=== PATIENT | male | born 1975 | race Two or more races ===

== ENCOUNTER 2024-12-06 15:08 | Inpatient (IN) | payer MEDICAID, OTHER ==
[2024-12-06] VITALS (7 sets, daily range): BP systolic 83–107; BP diastolic 45–65; PULSE 82–115; RESP 21–30; TEMP 94.8–96.4; O2SAT 94–99
[~2024-12-06] VITALS: Ht 190.5 cm; Wt 74.4 kg
[2024-12-06] MEDS ORDERED: DEXTROSE (50%) 50ML SYRG IV PRN ×2 (15:30→19:45)
--- NOTE | 2024-12-06 15:34 | ED.PDOC ---
Altered Mental Status Chief Complaint: ALOC Comments This is a patient who was found altered by his family. Patient's ex- called 911 after finding him altered at home. He was supposed to take care of the kids today by he did not show up. He was last seen normal two days ago. Patient's blood sugar was read high by EMT and also he was hypotensive. He was given 1 L by EMT. Patient is able to not NSAIDs as he is thirsty. EMT reports there are bags and bags of marijuana in the house. Time Seen by MD: 15:11 Allergies: Coded Allergies: UNOBTAINABLE (Unverified , 12/06/24) Information Source: Emergency Med Personnel Mode of Arrival: EMS Severity: Unable to Care for Self Timing: Days Quality: Decreased Alertness History of: Diabetes Past Medical History PAST MEDICAL HISTORY: DM Surgical History (Other): unknown Unable to Obtain due to: Altered Mental Status Physical Exam Exam Comments Patient is awake alert, is able to nod, is able to say he is thirsty, however he is not answering any other questions his mucous membrane is dry. General Appearance: Cachectic, No Apparent Distress, Normal HEENT: Other (Dry mucous membrane) Neck: Full Range of Motion, Non-Tender, Normal, Normal Inspection Respiratory: Chest Non-Tender, Lungs Clear, No Accessory Muscle Use, No Respiratory Distress, Normal Breath Sounds Cardiovascular: No Edema, No JVD, No Murmur, No Gallop, Normal Peripheral Pulses, Regular Rate/Rhythm Breast Exam: Deferred Gastrointestinal: No Organomegaly, Non Tender, No Pulsatile Mass, Normal Bowel Sounds, Soft Genitalia: Deferred Pelvic: Deferred Rectal: Deferred Extremities: No calf tenderness, Normal capillary refill, Normal inspection, Normal range of motion, Non-tender, No pedal edema Musculoskeletal : Apperance: Normal Neurologic: Alert, No Motor Deficits, Normal Affect, Normal Mood, No Sensory Deficits Cerebellar Function: Normal Reflexes: Normal Skin: Dry, Normal Color, Warm Lymphatic: No Adenopathy Was a procedure done? 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: Attending Physician Indication: Hypotension, CVP monitoring, Volume resuscitation, Suspected infection Room prepared for procedure: Yes Billing Clerk performed hand hygien: Yes Maximal sterile barrier precau: Mask/Eye shield, Sterile gown, Cap, Sterlie gloves, Large sterlie drape Skin Preparation: Chlorhexidine gluconate Skin preparation completely dr: Yes Insertion site: Right, Internal jugular Central line catheter type: Pbi-[id number]-diy dialysis Number of lumens: 3 Post Assessment: Chest X-Ray, Proper placement Informed consent obtained: Yes Risks/benefits/alt described: Yes Differential Diagnosis (ALOC) Differential Diagnosis: Dehydration, Hypoglycemia, DKA, Encephalopathy, Meningitis, Sepsis, Hypoxemia, Seizure, Closed Head Injury, CVA, Mass Lesion, SAH, Drug Overdose, ETOH Intoxication, Heart Failure, Renal Failure X-Ray, Labs, Meds, VS Vital Signs Date Time Temp Pulse Resp B/P (MAP) Pulse Ox O2 Delivery O2 Flow Rate FiO2 12/06/24 19:15 94.8 109 22 107/62 (77) 98 94.8 12/06/24 19:00 94.5 108 23 119/72 (88) 98 94.5 12/06/24 18:45 93.9 107 24 112/74 (87) 99 93.9 12/06/24 18:30 93.6 104 22 103/68 (80) 98 93.6 12/06/24 18:28 105 12/06/24 18:15 92.8 101 22 106/74 (85) 98 92.8 12/06/24 18:00 92.3 100 21 116/62 (80) 97 92.3 12/06/24 17:45 91.9 98 20 107/67 (80) 97 91.9 12/06/24 17:30 91.4 94 24 105/62 (76) 98 91.4 12/06/24 17:15 91.0 100 26 101/56 (71) 97 91.0 12/06/24 17:00 90.5 91 28 90/48 (62) 97 90.5 12/06/24 16:45 90.1 88 21 84/51 (62) 97 90.1 12/06/24 16:35 88 12/06/24 16:30 89.6 87 19 84/51 (62) 98 89.6 12/06/24 16:17 89.4 89.4 12/06/24 16:15 91 22 76/51 (59) 97 12/06/24 16:00 85 24 86/49 (61) 98 12/06/24 15:45 83 22 76/42 (53) 98 12/06/24 15:45 82 12/06/24 15:30 81 21 76/43 (54) 97 12/06/24 15:15 94.6 82 21 68/41 (50) 94 94.6 12/06/24 15:15 94.6 85 24 74/52 99 94.6 12/06/24 15:15 82 21 94 Room Air* 0 21 Lab Test 12/06/24 18:36 12/06/24 17:59 12/06/24 17:45 12/06/24 15:54 Range/Units Blood Gas Specimen Type Arterial Blood Gas Sample Site Left radial Blood Gas Patient Temperature 37.0 Arterial Blood Date Drawn [id number] Arterial Blood pH 7.277 L 7.350-7.450 Arterial Blood Partial Pressure CO2 25.1 L 35.0-48.0 mmHg Arterial Blood Partial Pressure O2 99.7 83.0-108.0 mmHg Arterial Blood HCO3 11.5 L 21.0-28.0 mmol/L Arterial Blood Oxygen Saturation 96.7 94.0-98.0 % Arterial Blood Base Excess -13.5 L -2.0-3.0 mmol/L Arterial Blood Oxyhemoglobin 95.6 94.0-98.0 % Arterial Blood Carboxyhemoglobin 0.4 L 0.5-1.5 % Arterial Blood Methemoglobin 0.7 0.0-1.5 % Frankie Test Yes Blood Gas Total Hemoglobin 14.10 13.5-17.5 g/dL Blood Gas Modality Room air FiO2 % 21.0 POC Glucose > 600 *H 70-106 mg/dl Lactic Acid Level 1.8 0.4-2.0 mmol/L Urine Color Light-yellow Yellow Urine Clarity Turbid H Clear Urine pH 5.5 5.0-9.0 Urine Specific [place] 1.019 1.001-1.035 Urine Protein Trace H Negative Urine Ketones 3+ H Negative Urine Blood Trace H Negative /uL Urine Nitrite Negative Negative Urine Bilirubin Negative Negative Urine Urobilinogen Normal Negative mg/dL Urine Leukocyte Esterase Negative Negative /uL Urine RBC <1 0 - 3 /hpf Urine Microscopic WBC 1 0-3 /HPF Urine Squamous Epithelial Cells Few <5 /hpf Urine Bacteria None seen None Seen /hpf Urine Hyaline Casts Many 0 - 2 /lpf Urine Mucus Few None Seen Urine Glucose 4+ H Normal mg/dL Urine Opiates Screen Neg NEGATIVE Urine Fentanyl Screen Neg NEGATIVE Urine Barbiturates Screen Neg NEGATIVE Urine Phencyclidine Screen Neg NEGATIVE Urine Amphetamines Screen Neg NEGATIVE Urine Benzodiazepines Screen Neg NEGATIVE Urine Cocaine Screen Neg NEGATIVE Urine Cannabinoids Screen Neg NEGATIVE Test 12/06/24 15:50 12/06/24 15:28 12/06/24 15:19 12/06/24 15:18 Range/Units Blood Gas Specimen Type Arterial Blood Gas Sample Site Right brachial Blood Gas Patient Temperature 37.0 Arterial Blood Date Drawn [id number] Arterial Blood pH 7.093 *L 7.350-7.450 Arterial Blood Partial Pressure CO2 23.2 L 35.0-48.0 mmHg Arterial Blood Partial Pressure O2 122.7 H 83.0-108.0 mmHg Arterial Blood HCO3 6.9 L 21.0-28.0 mmol/L Arterial Blood Oxygen Saturation 97.0 94.0-98.0 % Arterial Blood Base Excess -21.2 L -2.0-3.0 mmol/L Arterial Blood Oxyhemoglobin 95.9 94.0-98.0 % Arterial Blood Carboxyhemoglobin 0.4 L 0.5-1.5 % Arterial Blood Methemoglobin 0.7 0.0-1.5 % Frankie Test N/a Blood Gas Total Hemoglobin 13.90 13.5-17.5 g/dL Blood Gas Modality Room air FiO2 % 21.0 Blood Gas Critical Value Read Back Yes Blood Gas Notified Whom Dr. ayala Blood Gas Notified Time [id number] Blood Gas Notified By Tiago william, jg White Blood Count 24.0 H 4.4-10.8 10^3/uL Red Blood Count 4.63 4.5-5.90 10^6/uL Hemoglobin 13.8 13.5-17.5 g/dL Hematocrit 43.6 41.0-53.0 % Mean Corpuscular Volume 94.2 80.0-100.0 fL Mean Corpuscular Hemoglobin 29.9 28.0-32.0 pg Mean Corpuscular Hemoglobin Concent 31.7 L 32.0-36.0 g/dL Red Cell Distribution Width 13.4 11.8-14.3 % Platelet Count 448 140-450 10^3/uL Mean Platelet Volume 8.4 6.9-10.8 fL Neutrophils (%) (Auto) 37.0-80.0 % Lymphocytes (%) (Auto) 10.0-50.0 % Monocytes (%) (Auto) 0.0-12.0 % Basophils (%) (Auto) 0.0-2.0 % Neutrophils # (Auto) 1.6-8.6 10 ^3/uL Lymphocytes # (Auto) 0.4-5.4 10 ^3/uL Monocytes # (Auto) 0-1.3 10 ^3/uL Differential Total Cells Counted 100.0 100 Neutrophils % (Manual) 84 H 37.0-80.0 Band Neutrophils % (Manual) 6 Lymphocytes % (Manual) 2 L 10.0-50.0 Monocytes % (Manual) 8 0-12 Eosinophils % (Manual) 0 0-7 Basophils % (Manual) 0 0.0-2.0 Metamyelocytes % (manual) 0 Myelocytes % (Manual) 0 Promyelocytes % (Manual) 0 Blast Cells % (Manual) 0 Reactive Lymphocytes 0 Platelet Estimate Adequate Red Blood Cell Morphology Normal Sodium Level 139 136-145 mmol/L Potassium Level 3.1 L 3.5-5.1 mmol/L Chloride Level 94 L 98-107 mmol/L Carbon Dioxide Level < 10 *L 20-31 mmol/L Anion Gap 35.93372 H 5-15 Blood Urea Nitrogen 102 *H 9-23 mg/dL Creatinine 5.91 H 0.700-1.30 mg/dL Glomerular Filtration Rate Calc 11 >90 mL/min BUN/Creatinine Ratio 17.3 10.0-20.0 Serum Glucose 1225 *H 74-106 mg/dL Serum Osmolality 456 H 278-298 mOsm/kg Lactic Acid Level 2.4 *H 0.4-2.0 mmol/L Calcium Level 8.6 L 8.7-10.4 mg/dL Phosphorus Level 9.2 H 2.4-5.1 mg/dL Magnesium Level 3.0 H 1.6-2.6 mg/dL Total Bilirubin 0.4 0.2-1.0 mg/dL Aspartate Amino Transferase (AST) 9 L 13-40 U/L Alanine Aminotransferase (ALT) < 9 7-40 U/L Alkaline Phosphatase 112 46-116 U/L Total Protein 7.1 5.7-8.2 g/dL Albumin 3.9 3.2-4.8 g/dL Beta-Hydroxybutyric Acid > 4.500 H < 0.4 mmol/L Plasma/Serum Blood Alcohol 7.2 <10 mg/dL POC Glucose > 600 *H > 600 *H 70-106 mg/dl Current Medications Medications (Trade) Dose Ordered Sig/[place] Route Start Time Stop Time Status Last Admin Lactated Ringer's 2,550 ml @ 2,550 mls/hr ONCE ONCE IV 12/06/24 15:30 12/06/24 16:29 DC 12/06/24 15:45 Insulin Human (Reg)/Sodium Chloride 100 ml @ 0.5 mls/hr Q24H IV 12/06/24 15:30 12/06/24 16:34 Diagnostic Test (Pha) (Accu-Chek Comfort Curve T) 1 strip Q90MIN 12/06/24 16:30 12/06/24 18:05 Insulin Glargine (Lantus) 15 units ONCE ONCE SC 12/06/24 15:30 12/06/24 15:33 DC 12/06/24 16:29 Insulin Human Regular (InsuLIN R) 6 units ONCE ONCE IV 12/06/24 15:45 12/06/24 15:46 DC 12/06/24 16:27 Cefepime HCl 50 ml @ 50 mls/hr ONCE ONCE IV 12/06/24 16:00 12/06/24 16:59 DC 12/06/24 15:48 Time of 1ST Reevaluation: 19:27 Reevaluation 1ST: Improved Patient Education/Counseling: Diagnosis, Treatment, Prognosis, Need For Follow Up Family Education/Counseling: Diagnosis, Treatment, Prognosis, Need For Follow Up Comments This is a patient who was found to be altered. He has new onset diabetes and he is in DKA. He may also be septic. Chest x-ray shows patchy infiltrates after fluid. However initial chest x-ray was suspicious for patchy infiltrates this was when patient was dehydrated. So in all likelihood, patient does have pneumonia. Sepsis order was initiated. Patient is also in acute renal failure due to severe dehydration secondary to the DKA. Patient has responded to treatment and he is doing better he is more alert his acidosis has improved his blood sugar has dropped patient will be admitted to ICU for further evaluation and treatment for the above conditions SEPSIS Sepsis Screen Date sepsis recognized/suspect: Dec 06, 2024 Time Sepsis recognized/suspect: 1510 Recent Procedure: No On Antibiotic Therapy: No Respiratory Rate >20: No Heart Rate >90: No Temp<36 C (96.8 F) or >38.3 C: No SBP <90 or MAP <65 mmHG: No New Acute Mental Status Change: No Is the patient on CPAP, BIPAP,: No Physician Orders Chest Portable (12/06/24 15:25) Accucheck (12/06/24 15:25) Blood Culture (12/06/24 15:25) Notify Md If Map <65 Or Bp<90 (12/06/24 15:25) If Map<65 Start Vasopressor (12/06/24 15:25) Sepsis Reassesment After Fluid (12/06/24 16:25) Insulin Drip Protocol (12/06/24 ) Insulin Drip 100 Unit/100ml (Myxredlin 1 (12/06/24 15:30) Dextrose 50% Syringe (12/06/24 15:30) Glucose Blood (Accu-Chek Comfort Curve T (12/06/24 16:30) Abg W/ Co-Ox (12/06/24 15:25) Neurological Assessment (12/06/24 15:25) Vs/Hemodynamics .PER UNIT PROTOCOL (12/06/24 15:25) Insulin Lantus (Glargine) (Lantus) (12/07/24 10:00) Insert Lala Catheter QSHIFT (12/06/24 15:36) Head Without Contrast (12/06/24 15:52) Continuous Ekg Monitoring 08,12,16,20,00,04 (12/06/24 16:31) Cefepime 1gm/50ml (Maxipime 1gm/50ml) (12/07/24 10:00) Chest Portable (12/06/24 17:26) Abg W/ Co-Ox (12/06/24 18:25) Potassium Chl Kyle Kcl (12/06/24 19:30) Vital Signs Date Time Temp Pulse Resp B/P (MAP) Pulse Ox O2 Delivery O2 Flow Rate FiO2 12/06/24 19:15 94.8 109 22 107/62 (77) 98 94.8 12/06/24 19:00 94.5 108 23 119/72 (88) 98 94.5 12/06/24 18:45 93.9 107 24 112/74 (87) 99 93.9 12/06/24 18:30 93.6 104 22 103/68 (80) 98 93.6 12/06/24 18:28 105 12/06/24 18:15 92.8 101 22 106/74 (85) 98 92.8 12/06/24 18:00 92.3 100 21 116/62 (80) 97 92.3 12/06/24 17:45 91.9 98 20 107/67 (80) 97 91.9 12/06/24 17:30 91.4 94 24 105/62 (76) 98 91.4 12/06/24 17:15 91.0 100 26 101/56 (71) 97 91.0 12/06/24 17:00 90.5 91 28 90/48 (62) 97 90.5 12/06/24 16:45 90.1 88 21 84/51 (62) 97 90.1 12/06/24 16:35 88 12/06/24 16:30 89.6 87 19 84/51 (62) 98 89.6 12/06/24 16:17 89.4 89.4 12/06/24 16:15 91 22 76/51 (59) 97 12/06/24 16:00 85 24 86/49 (61) 98 12/06/24 15:45 83 22 76/42 (53) 98 12/06/24 15:45 82 12/06/24 15:30 81 21 76/43 (54) 97 12/06/24 15:15 94.6 82 21 68/41 (50) 94 94.6 12/06/24 15:15 94.6 85 24 74/52 99 94.6 12/06/24 15:15 82 21 94 Room Air* 0 21 Laboratory Tests Test 12/06/24 15:28 12/06/24 17:45 Lactic Acid Level 2.4 mmol/L (0.4-2.0) *H 1.8 mmol/L (0.4-2.0) White Blood Count 24.0 10^3/uL (4.4-10.8) H Medications Medications Dose Ordered Sig/[place] Route Start Time Stop Time Status Last Admin Dose Admin Cefepime HCl 50 ml @ 50 mls/hr ONCE ONCE IV 12/06/24 16:00 12/06/24 16:59 DC 12/06/24 15:48 Diagnostic Test (Pha) 1 strip Q90MIN 12/06/24 16:30 12/06/24 18:05 Insulin Glargine 15 units ONCE ONCE SC 12/06/24 15:30 12/06/24 15:33 DC 12/06/24 16:29 Insulin Human (Reg)/Sodium Chloride 100 ml @ 0.5 mls/hr Q24H IV 12/06/24 15:30 12/06/24 16:34 Insulin Human Regular 6 units ONCE ONCE IV 12/06/24 15:45 12/06/24 15:46 DC 12/06/24 16:27 Lactated Ringer's 2,550 ml @ 2,550 mls/hr ONCE ONCE IV 12/06/24 15:30 12/06/24 16:29 DC 12/06/24 15:45 Reassessment Post Fluid SEPSIS FOCUS EXAM(REASSESSMENT Patient is improving, he is more alert and cooperative. His blood pressure has improved. His acidosis has improved. And his blood sugar has decreased by half. Date of Reassessment: Dec 06, 2024 Time of Reassessment: 19:30 Pulse Location: Radial Pulse Strength: Normal Capillary Refill Exam: < 3 seconds Skin Temperature: Warm Skin Tugor: WNL Skin Color: WNL Fingernail Color: WNL Departure 1 Departure Time of Disposition: 19:25 Impression: Primary Impression: DKA (diabetic ketoacidosis) Qualified Codes: E13.10 - Other specified diabetes mellitus with ketoacidosis without coma Additional Impressions: Acute renal failure Qualified Codes: N17.9 - Acute kidney failure, unspecified Sepsis Qualified Codes: A41.9 - Sepsis, unspecified organism Pneumonia Qualified Codes: J18.9 - Pneumonia, unspecified organism Hypokalemia Disposition: ADMITTED INPATIENT Admit to: ICU Condition: Critical Discharged With: Relative Critical Care Note Critical Care Time?: Yes (90 min-critical care time only) Critical care comment: due to concerns for patient's condition deteriorating, the care required my highest level of attention and readiness to intervene. i assessed the patient's condition, ordered the proper tests and treatments, reassessed for response and reviewed the results. i communicated with medical personnel and formulated a plan of care. total critical care time does not include any procedures Stability Stability form required: No I personally scribed for MARGE AYALA MD ([email or web address]) on 12/06/24 at 17:15. Elec tronically submitted by Dallas Noriega ([email or web address]). MARGE AYALA MD Dec 06, 2024 15:34
[2024-12-06] MEDS: LACTATED RINGER'S 2,550 ML IV ONE (15:45)
[2024-12-06] MEDS: ACCU-CHEK COMFORT CURVE STRIP VI SCH ×2 (15:45→21:07)
[2024-12-06] MEDS: CEFEPIME 1GM/50ML 50 ML IV ONE (15:48)
[2024-12-06 15:54] LABS: Base Excess -21.2 mmol/L (-2.0-3.0)
[2024-12-06 16:01] LABS: Hematocrit 43.6 % (41.0-53.0); Hemoglobin 13.8 g/dL (13.5-17.5); Mean Corpuscular Hemoglobin 29.9 pg (28.0-32.0); Mean Corpuscular Volume 94.2 fL (80.0-100.0)
--- NOTE | 2024-12-06 16:07 | DVH ---
EXAM: XY CHEST PORTABLE HISTORY: sepsis COMPARISON: None TECHNIQUE: Portable upright AP view of the chest was performed. FINDINGS: There is question of mild patchy infiltrate in the right mid lung versus artifactual appearance. No pneumothorax or pulmonary edema. The heart is not enlarged. There is mild thoracic degenerative disc disease. IMPRESSION: Question of mild patchy infiltrate in the right mid lung versus artifactual appearance. The lungs ar e otherwise clear.
[2024-12-06 16:09] LABS: Albumin 3.9 g/dL (3.2-4.8); Alkaline Phosphatase 112 U/L (46-116); Anion Gap 35.00001 (5-15); BUN/Creatinine Ratio 17.3 (10.0-20.0); Sodium 139 mmol/L (136-145); Total Protein 7.1 g/dL (5.7-8.2)
[2024-12-06 16:10] LABS: Bilirubin, Total 0.4 mg/dL (0.2-1.0)
[2024-12-06 16:11] LABS: Lactic Acid w/Reflex 2.4 mmol/L (0.4-2.0)
[2024-12-06 16:18] LABS: Alanine Aminotransferase < 9 U/L (7-40); Calcium 8.6 mg/dL (8.7-10.4); Chloride 94 mmol/L (98-107); Potassium 3.1 mmol/L (3.5-5.1)
[2024-12-06 16:19] LABS: Magnesium 3.0 mg/dL (1.6-2.6)
[2024-12-06 16:21] LABS: Carbon Dioxide < 10 mmol/L (20-31)
[2024-12-06 16:22] LABS: Blood Urea Nitrogen 102 mg/dL (9-23); Glucose 1225 mg/dL (74-106)
[2024-12-06] MEDS: InsuLIN REG 1unit/0.01ml Soln (100units/ml) IV ONE (16:27)
[2024-12-06] MEDS: INSULIN LANTUS (GLARGINE) 1 /0.01ml (100units/ml) SC ONE (16:29)
--- NOTE | 2024-12-06 16:31 | DVH ---
EXAM: CT HEAD WITHOUT CONTRAST INDICATION: altered TECHNIQUE: CT of the head without intravenous contrast. Radiation Dose Information: CT Dose: CTDI volume is 58.35 mGy. Dose-length product is 1266.46 mGy*cm The dose indicators for CT are the volume Computed Tomography (CT) Dose Index (CTDIvol) and the Dose Length Product (DLP), and are measured in units of mGy and mGy-cm, respectively. These indicators are not patient dose, but values generated from the CT scanner acquisition factors. The report includes radiation exposure data for exposures received during this examination. COMPARISON: None FINDINGS: There is no evidence of acute intracranial hemorrhage, extra-axial collection, mass effect, midline s hift, herniation or hydrocephalus. The ventricles, sulci and cisterns are age appropriate. The donnelly-white differentiation is intact. The visualized paranasal sinuses and mastoid air cells are clear. The surrounding soft tissues and osseous structures are unremarkable. IMPRESSION: No acute intracranial abnormality.
[2024-12-06 16:32] LABS: Urine Protein, UAD TRACE (Negative)
[2024-12-06 16:33] LABS: RBC Morphology Normal; Total Cells Counted 100.0 (100)
[2024-12-06] MEDS: INSULIN DRIP 100 UNIT/100ML 100 ML IV SCH ×2 (16:34→21:09)
[2024-12-06 16:50] LABS: Cannabinoid Screen, Urine Neg (NEGATIVE)
[2024-12-06 16:51] LABS: Amphetamine Screen, Urine Neg (NEGATIVE); Barbiturate Scree,Urine Neg (NEGATIVE); Benzodiazephine Screen, Urine Neg (NEGATIVE); Cocaine Screen, Urine Neg (NEGATIVE); Opiate Scree,Urine Neg (NEGATIVE); Phencyclidine Screen, Urine Neg (NEGATIVE)
--- NOTE | 2024-12-06 17:01 | ECG ---
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
--- NOTE | 2024-12-06 17:57 | DVH ---
CHEST RADIOGRAPH Indication: central line placement Technique: XY CHEST PORTABLE COMPARISON: None FINDINGS: The cardiac silhouette is unremarkable. Right IJ catheter tip projects over the right atrium.. The l ungs demonstrate bilateral patchy airspace opacities. The pulmonary vasculature is prominent. There i s no pleural effusion. There is no pneumothorax. IMPRESSION: As above
[2024-12-06 18:44] LABS: Base Excess -13.5 mmol/L (-2.0-3.0)
[2024-12-06] MEDS ORDERED: MORPHINE SULFATE 4 MG/ML SYR/VIAL IV PRN (19:45)
[2024-12-06] MEDS ORDERED: NITROGLYCERIN 0.4 MG SL TAB SL PRN (19:45)
[2024-12-06] MEDS ORDERED: ONDANSETRON HCL 4 MG/2 ML VIAL IV PRN (19:45)
[2024-12-06] MEDS ORDERED: ALBUTEROL SULF 2.5 MG/0.5ML(0.5%) NEB SOLN NEB PRN (19:45)
--- NOTE | 2024-12-06 20:56 | DVH ---
CHEST RADIOGRAPH Indication: repositioning of cvc Technique: 1 view Comparison: XY CHEST PORTABLE on DOS: 12/06/24, XY CHEST PORTABLE on DOS: 12/06/24 FINDINGS: Lines and Tubes: Right IJ catheter terminates over the superior cavoatrial junction. Lungs/Pleura: Unchanged. Cardiomediastinum: Unchanged. Other: Unchanged osseous structures. IMPRESSION: 1. Right IJ catheter appears slightly retracted, now terminating at the level of the superior cavoatr ial junction. 2. No other short interval change from the previous same day exam. Mild perihilar airspace disease.
[2024-12-06] MEDS: POTASSIUM CHL 20MEQ/100ML 100 ML IV ONE (21:01)
[2024-12-06] MEDS: SODIUM CHLORIDE 0.9% 1,000 ML IV SCH (21:02)
[2024-12-06 22:21] LABS: Base Excess -6.9 mmol/L (-2.0-3.0)
[2024-12-06 22:38] LABS: Chloride 105 mmol/L (98-107)
[2024-12-06 22:39] LABS: Anion Gap 25 (5-15)
[2024-12-06 22:44] LABS: BUN/Creatinine Ratio 16.8 (10.0-20.0)
[2024-12-06 22:54] LABS: Potassium 2.9 mmol/L (3.5-5.1); Sodium 147 mmol/L (136-145)
[2024-12-06 22:55] LABS: Calcium 8.6 mg/dL (8.7-10.4); Carbon Dioxide 17 mmol/L (20-31)
[2024-12-06 22:57] LABS: Blood Urea Nitrogen 87 mg/dL (9-23); Glucose 746 mg/dL (74-106)
[2024-12-07] VITALS (45 sets, daily range): BP systolic 86–123; BP diastolic 45–76; PULSE 114–126; RESP 19–41; TEMP 96.6–100.2; O2SAT 89–100
[2024-12-07] MEDS ORDERED: POTASSIUM CHLORIDE 40 MEQ in SOD CHL 0.45% 1,000 ML IV ONE
[2024-12-07] MEDS ORDERED: DEXTROSE (50%) 50ML SYRG IV PRN (00:30)
[2024-12-07] MEDS: ACCU-CHEK COMFORT CURVE STRIP VI SCH (00:30)
[2024-12-07] MEDS: INSULIN DRIP 100 UNIT/100ML 100 ML IV SCH ×2 (00:42→20:00)
[2024-12-07] MEDS: SOD CHL 0.45% 1,000 ML IV SCH (01:25)
[2024-12-07] MEDS: POTASSIUM CHL 20MEQ/100ML 100 ML IV SCH ×2 (01:27→07:24)
[2024-12-07] MEDS: POTASSIUM CHL 20MEQ/100ML 200 ML IV ONE (01:27)
--- NOTE | 2024-12-07 04:45 | DVHHP2 ---
History of Present Illness Reason for Visit: Altered mental status History of Present Illness 49-year-old male presents for evaluation of altered mental status. Patient was found altered by family members. In the feel patient's blood sugar was reading high in the patient was hypotensive. Currently patient is lethargic oriented x2. No slurred speech or unilateral weakness. No complaints of cardiac or respiratory symptoms. Past Medical History Diabetes mellitus Past Surgical History None Family History Noncontributory Lives: with Family Review of Systems Review of Systems Review of systems are limited due to the patient's altered mental status. Allergies: Coded Allergies: UNOBTAINABLE (Unverified , 12/06/24) Medications Current Medications Medications Dose Ordered Sig/[place] Route Start Time Stop Time Status Last Admin Dose Admin Cefepime HCl 50 ml @ 12.5 mls/hr DAILY IV 12/07/24 10:00 Insulin Glargine 15 units DAILY SC 12/07/24 10:00 Albuterol 2.5 mg Q6HPRN PRN NEB 12/06/24 19:45 Ondansetron HCl 4 mg Q4HP PRN IV 12/06/24 19:45 Hold Acetaminophen 650 mg Q6HP PRN PO 12/06/24 19:45 Nitroglycerin 0.4 mg Q5MINP PRN SL 12/06/24 19:45 Morphine Sulfate 2 mg Q30M PRN IV 12/06/24 19:45 Diagnostic Test (Pha) 1 strip Q90MIN 12/07/24 00:30 12/07/24 04:37 1 STRIP Insulin Human (Reg)/Sodium Chloride 100 ml @ 1 mls/hr Q24H IV 12/07/24 00:30 12/07/24 00:42 16 MLS/HR Dextrose 50 ml PRN PRN IV 12/07/24 00:30 Sodium Chloride 1,000 ml @ 100 mls/hr Q10H IV 12/07/24 01:15 12/07/24 01:25 100 MLS/HR Potassium Chloride 100 ml @ 50 mls/hr Q2H IV 12/07/24 01:15 12/07/24 05:14 12/07/24 03:14 50 MLS/HR Exam Vital Signs Vital Signs Date Time Temp Pulse Resp B/P (MAP) Pulse Ox O2 Delivery O2 Flow Rate FiO2 12/07/24 04:30 97.5 124 97 207.5 10/7/25 04:15 34 12/06/24 23:26 Room Air* 0 21 Exam Gen: 49-year-old male in mild distress. Skin: Warm, dry, normal color and texture, no rash. HEENT: Normocephalic atraumatic, mucous membranes moist and pink. Neck: Cervical and supraclavicular nodes normal without enlargement, trachea is midline, thyroid gland is normal without masses. Pulmonary: Clear to auscultation and percussion bilaterally. Cardiac: Sinus tachycardia Abdomen: Soft, nontender, nondistended, bowel sounds present all 4 quadrants, no guarding, no rigidity, no organomegaly. Extremities: No cyanosis, clubbing, no edema Neuro: Cranial nerves II through XII grossly intact, normal affect and speech, no focal motor deficits. Labs/Xrays ORDERING PHYSICIAN: MARGE AYALA MD PROCEDURE(s): HWOCT - HEAD WITHOUT CONTRAST REASON: altered ORDER NUMBER(s): [id number], ACCESSION NUMBER(s): [id number] EXAM: CT HEAD WITHOUT CONTRAST INDICATION: altered TECHNIQUE: CT of the head without intravenous contrast. Radiation Dose Information: CT Dose: CTDI volume is 58.35 mGy. Dose-length product is 1266.46 mGy*cm The dose indicators for CT are the volume Computed Tomography (CT) Dose Index (CTDIvol) and the Dose Length Product (DLP), and are measured in units of mGy and mGy-cm, respectively. These indicators are not patient dose, but values generated from the CT scanner acquisition factors. The report includes radiation exposure data for exposures received during this examination. COMPARISON: None FINDINGS: There is no evidence of acute intracranial hemorrhage, extra-axial collection, mass effect, midline shift, herniation or hydrocephalus. The ventricles, sulci and cisterns are age appropriate. The donnelly-white differentiation is intact. The visualized paranasal sinuses and mastoid air cells are clear. The surrounding soft tissues and osseous structures are unremarkable. IMPRESSION: No acute intracranial abnormality. RING PHYSICIAN: MARGE AYALA MD PROCEDURE(s): CXR1 - CHEST XRAY 1 VIEW REASON: repositioning of cvc ORDER NUMBER(s): [id number], ACCESSION NUMBER(s): [id number] CHEST RADIOGRAPH Indication: repositioning of cvc Technique: 1 view Comparison: XY CHEST PORTABLE on DOS: 12/06/24, XY CHEST PORTABLE on DOS: 12/06/24 FINDINGS: Lines and Tubes: Right IJ catheter terminates over the superior cavoatrial junction. Lungs/Pleura: Unchanged. Cardiomediastinum: Unchanged. Other: Unchanged osseous structures. IMPRESSION: 1. Right IJ catheter appears slightly retracted, now terminating at the level of the superior cavoatrial junction. 2. No other short interval change from the previous same day exam. Mild perihilar airspace disease. Labs Test 12/07/24 03:06 12/06/24 22:15 12/06/24 22:04 12/06/24 17:45 Range/Units POC Glucose 335 H 70-106 mg/dl Blood Gas Specimen Type Arterial Blood Gas Sample Site Left radial Blood Gas Patient Temperature 37.0 Arterial Blood Date Drawn [id number] Arterial Blood pH 7.348 L 7.350-7.450 Arterial Blood Partial Pressure CO2 32.8 L 35.0-48.0 mmHg Arterial Blood Partial Pressure O2 81.9 L 83.0-108.0 mmHg Arterial Blood HCO3 17.6 L 21.0-28.0 mmol/L Arterial Blood Oxygen Saturation 95.2 94.0-98.0 % Arterial Blood Base Excess -6.9 L -2.0-3.0 mmol/L Arterial Blood Oxyhemoglobin 93.5 L 94.0-98.0 % Arterial Blood Carboxyhemoglobin 1.1 0.5-1.5 % Arterial Blood Methemoglobin 0.7 0.0-1.5 % Frankie Test Yes Blood Gas Total Hemoglobin 14.20 13.5-17.5 g/dL Blood Gas Modality Room air FiO2 % 21.0 Sodium Level 147 #H 136-145 mmol/L Potassium Level 2.9 L 3.5-5.1 mmol/L Chloride Level 105 # 98-107 mmol/L Carbon Dioxide Level 17 L 20-31 mmol/L Anion Gap 25 H 5-15 Blood Urea Nitrogen 87 #*H 9-23 mg/dL Creatinine 5.18 H 0.700-1.30 mg/dL Glomerular Filtration Rate Calc 13 >90 mL/min BUN/Creatinine Ratio 16.8 10.0-20.0 Serum Glucose 746 #*H 74-106 mg/dL Calcium Level 8.6 L 8.7-10.4 mg/dL Lactic Acid Level 1.8 0.4-2.0 mmol/L Test 12/06/24 15:54 12/06/24 15:50 12/06/24 15:28 Range/Units Urine Color Light-yellow Yellow Urine Clarity Turbid H Clear Urine pH 5.5 5.0-9.0 Urine Specific [place] 1.019 1.001-1.035 Urine Protein Trace H Negative Urine Ketones 3+ H Negative Urine Blood Trace H Negative /uL Urine Nitrite Negative Negative Urine Bilirubin Negative Negative Urine Urobilinogen Normal Negative mg/dL Urine Leukocyte Esterase Negative Negative /uL Urine RBC <1 0 - 3 /hpf Urine Microscopic WBC 1 0-3 /HPF Urine Squamous Epithelial Cells Few <5 /hpf Urine Bacteria None seen None Seen /hpf Urine Hyaline Casts Many 0 - 2 /lpf Urine Mucus Few None Seen Urine Glucose 4+ H Normal mg/dL Urine Opiates Screen Neg NEGATIVE Urine Fentanyl Screen Neg NEGATIVE Urine Barbiturates Screen Neg NEGATIVE Urine Phencyclidine Screen Neg NEGATIVE Urine Amphetamines Screen Neg NEGATIVE Urine Benzodiazepines Screen Neg NEGATIVE Urine Cocaine Screen Neg NEGATIVE Urine Cannabinoids Screen Neg NEGATIVE Blood Gas Critical Value Read Back Yes Blood Gas Notified Whom Dr. ayala Blood Gas Notified Time [id number] Blood Gas Notified By Tiago william rrt White Blood Count 24.0 H 4.4-10.8 10^3/uL Red Blood Count 4.63 4.5-5.90 10^6/uL Hemoglobin 13.8 13.5-17.5 g/dL Hematocrit 43.6 41.0-53.0 % Mean Corpuscular Volume 94.2 80.0-100.0 fL Mean Corpuscular Hemoglobin 29.9 28.0-32.0 pg Mean Corpuscular Hemoglobin Concent 31.7 L 32.0-36.0 g/dL Red Cell Distribution Width 13.4 11.8-14.3 % Platelet Count 448 140-450 10^3/uL Mean Platelet Volume 8.4 6.9-10.8 fL Neutrophils (%) (Auto) 37.0-80.0 % Lymphocytes (%) (Auto) 10.0-50.0 % Monocytes (%) (Auto) 0.0-12.0 % Basophils (%) (Auto) 0.0-2.0 % Neutrophils # (Auto) 1.6-8.6 10 ^3/uL Lymphocytes # (Auto) 0.4-5.4 10 ^3/uL Monocytes # (Auto) 0-1.3 10 ^3/uL Differential Total Cells Counted 100.0 100 Neutrophils % (Manual) 84 H 37.0-80.0 Band Neutrophils % (Manual) 6 Lymphocytes % (Manual) 2 L 10.0-50.0 Monocytes % (Manual) 8 0-12 Eosinophils % (Manual) 0 0-7 Basophils % (Manual) 0 0.0-2.0 Metamyelocytes % (manual) 0 Myelocytes % (Manual) 0 Promyelocytes % (Manual) 0 Blast Cells % (Manual) 0 Reactive Lymphocytes 0 Platelet Estimate Adequate Red Blood Cell Morphology Normal Serum Osmolality 456 H 278-298 mOsm/kg Phosphorus Level 9.2 H 2.4-5.1 mg/dL Magnesium Level 3.0 H 1.6-2.6 mg/dL Total Bilirubin 0.4 0.2-1.0 mg/dL Aspartate Amino Transferase (AST) 9 L 13-40 U/L Alanine Aminotransferase (ALT) < 9 7-40 U/L Alkaline Phosphatase 112 46-116 U/L Total Protein 7.1 5.7-8.2 g/dL Albumin 3.9 3.2-4.8 g/dL Beta-Hydroxybutyric Acid > 4.500 H < 0.4 mmol/L Plasma/Serum Blood Alcohol 7.2 <10 mg/dL SEPSIS Sepsis Screen Date sepsis recognized/suspect: Dec 06, 2024 Time Sepsis recognized/suspect: 1514 Recent Procedure: No On Antibiotic Therapy: No Respiratory Rate >20: Yes Heart Rate >90: No Temp<36 C (96.8 F) or >38.3 C: Yes SBP <90 or MAP <65 mmHG: Yes New Acute Mental Status Change: No Is the patient on CPAP, BIPAP,: No Physician Orders Mrsa Screen (12/06/24 23:40) Glucose Blood (Accu-Chek Comfort Curve T (12/07/24 00:30) Insulin Drip 100 Unit/100ml (Myxredlin 1 (12/07/24 00:30) Dextrose 50% Syringe (12/07/24 00:30) Sod Chl 0.45% (Sodium Chloride 0.45% Via (12/07/24 01:15) Potassium Chl 20meq/100ml (12/07/24 01:15) Gastric Occult Blood (12/07/24 04:16) Vital Signs Date Time Temp Pulse Resp B/P (MAP) Pulse Ox O2 Delivery O2 Flow Rate FiO2 12/07/24 04:30 97.5 124 97 207.5 12/07/24 04:15 97.3 120 34 95 207.1 12/07/24 04:00 97.3 121 36 111/76 (88) 95 207.1 12/07/24 04:00 121 12/07/24 03:45 97.3 122 36 96/58 (71) 95 207.1 12/07/24 03:30 97.3 120 35 105/62 (76) 89 207.1 12/07/24 03:15 97.3 120 23 86/50 (62) 91 207.1 12/07/24 03:00 97.3 117 39 87/45 (59) 89 207.1 12/07/24 02:45 97.3 120 41 99/61 (74) 93 207.1 12/07/24 02:45 97.3 120 41 99/61 (74) 93 207.1 12/07/24 02:30 97.5 119 22 89/54 (66) 94 207.5 12/07/24 02:30 97.5 119 22 89/54 (66) 94 207.5 12/07/24 02:15 97.5 119 22 99/65 (76) 94 207.5 12/07/24 02:15 97.5 119 22 99/65 (76) 94 207.5 12/07/24 02:00 97.5 118 19 89/55 (66) 92 207.5 12/07/24 02:00 118 12/07/24 01:45 97.5 119 31 109/63 (78) 95 207.5 12/07/24 01:30 97.5 118 20 103/61 (75) 92 207.5 12/07/24 01:15 97.5 117 24 108/67 (81) 93 207.5 12/07/24 01:00 97.5 115 30 100/62 (75) 89 207.5 12/07/24 00:45 97.3 118 22 105/67 (80) 93 207.1 12/07/24 00:30 97.2 121 24 108/65 (79) 94 207.0 12/07/24 00:15 96.8 118 28 99/53 (68) 95 206.2 12/07/24 00:00 96.6 118 21 105/68 (80) 95 205.9 12/07/24 00:00 114 12/06/24 23:45 96.4 112 24 99/63 (75) 94 205.5 12/06/24 23:30 96.1 114 24 94/65 (75) 95 205.0 12/06/24 23:29 96.1 115 30 98/63 (75) 99 205.0 12/06/24 23:26 96.1 112 23 83/45 (58) 94 96.1 12/06/24 23:26 112 23 94 Room Air* 0 21 12/06/24 22:23 96.1 112 25 101/66 (78) 96 96.1 12/06/24 21:17 96.3 109 24 109/68 (82) 96 96.3 Laboratory Tests Test 12/06/24 17:45 Lactic Acid Level 1.8 mmol/L (0.4-2.0) Medications Medications Dose Ordered Sig/[place] Route Start Time Stop Time Status Last Admin Dose Admin Diagnostic Test (Pha) 1 strip Q90MIN 12/06/24 21:00 12/07/24 00:46 DC 12/06/24 22:33 1 STRIP Diagnostic Test (Pha) 1 strip Q90MIN 12/07/24 00:30 12/07/24 04:37 1 STRIP Insulin Human (Reg)/Sodium Chloride 100 ml @ 0.5 mls/hr Q24H IV 12/06/24 20:30 12/07/24 00:25 DC 12/06/24 21:09 0.5 MLS/HR Insulin Human (Reg)/Sodium Chloride 100 ml @ 1 mls/hr Q24H IV 12/07/24 00:30 12/07/24 00:42 16 MLS/HR Potassium Chloride 100 ml @ 50 mls/hr ONCE ONCE IV 12/06/24 19:30 12/06/24 21:29 DC 12/06/24 21:01 50 MLS/HR Potassium Chloride 100 ml @ 50 mls/hr Q2H IV 12/07/24 01:15 12/07/24 05:14 12/07/24 03:14 50 MLS/HR Sodium Chloride 1,000 ml @ 100 mls/hr Q10H IV 12/07/24 01:15 12/07/24 01:25 100 MLS/HR Sodium Chloride 1,000 ml @ 500 mls/hr Q2H IV 12/06/24 19:45 12/06/24 23:44 DC 12/06/24 23:15 500 MLS/HR Reassessment Post Fluid Date of Reassessment: Dec 06, 2024 Time of Reassessment: 19:30 Pulse Location: Radial Pulse Strength: Normal Capillary Refill Exam: < 3 seconds Skin Temperature: Warm Skin Tugor: WNL Skin Color: WNL Fingernail Color: WNL Assessment/Plan Assessment/Plan Assessment Diabetic ketoacidosis Metabolic encephalopathy Questionable pneumonia Mild leukocytosis Plan Admit the patient to [facility] to the hospitalist DKA protocol Continue cefepime Total critical care time excluding procedures performed this 50 minutes. Continue treatment per orders Plan discussed with: Patient My Orders Orders - SONNY HARRIS Procedure Category Date Status Time Basic Metabolic Panel LAB 12/07/24 Logged 09:30 Basic Metabolic Panel LAB 12/07/24 Logged 15:30 Albuterol Medneb PHA 12/06/24 In Process (Ventolin Medneb) 19:45 Admit ADMIT 12/06/24 Transmitted 19:40 Ondansetron Hcl PHA 12/06/24 In Process (Zofran) 19:45 Complete Blood Count LAB 12/07/24 Logged 04:00 Comprehensive LAB 12/07/24 Logged Metabolic Panel 04:00 Npo (Nothing By DIET 12/07/24 Transmitted Mouth) Diet Breakfast Condition: Critical MADELYN 12/06/24 In Process 19:40 Acetaminophen Tablet PHA 12/06/24 In Process (Tylenol Tablet) 19:45 Bedrest With Bathroom MADELYN 12/06/24 In Process Privileg 19:40 Nitroglycerin PHA 12/06/24 In Process Sublingual (Ntrostat 19:45 Stat Ekg For Chest MADELYN 12/06/24 In Process Pain 19:40 Notify Md Of Changes MADELYN 12/06/24 In Process From Base 19:40 Radiation Engineer For MADELYN 12/06/24 In Process 24 Hours 19:40 Emergency Dysrhythmia MADELYN 12/06/24 In Process Protocol 19:40 Rhythm Strips Once MADELYN 12/06/24 In Process Every Shift 19:40 Oxygen By Nasal RT 12/06/24 Transmitted Cannula 19:40 Morphine Sulfate PHA 12/06/24 In Process Injection 19:45 Abg W/ Co-Ox RT 12/06/24 Logged 21:30 Mrsa Screen ALANNA 12/06/24 Logged 23:40 Glucose Blood PHA 12/07/24 In Process (Accu-Chek Comfort 00:30 Insulin Drip 100 PHA 12/07/24 In Process Unit/100ml (Myxredlin 00:30 Dextrose 50% Syringe PHA 12/07/24 In Process 00:30 Sod Chl 0.45% (Sodium PHA 12/07/24 In Process Chloride 0.45% Via 01:15 Potassium Chl PHA 12/07/24 In Process 20meq/100ml 01:15 Gastric Occult Blood LAB 12/07/24 Logged 04:16 Date of Service: Dec 06, 2024 Billing Provider: SONNY HARRIS Common Visit Codes: [id number] CARE 30-74 MIN SONNY HARRIS Dec 07, 2024 04:45
[2024-12-07] MEDS: PANTOPRAZOLE 40 MG/10 ML VIAL INJ IV SCH (04:53)
[2024-12-07 05:46] LABS: Hematocrit 35.6 % (41.0-53.0); Hemoglobin 12.9 g/dL (13.5-17.5); Mean Corpuscular Hemoglobin 29.5 pg (28.0-32.0); Mean Corpuscular Volume 81.5 fL (80.0-100.0); Nucleated Red Blood Cells % 0.0 %
[2024-12-07 06:01] LABS: Alanine Aminotransferase 10 U/L (7-40); Albumin 3.7 g/dL (3.2-4.8); Alkaline Phosphatase 96 U/L (46-116); Anion Gap 19 (5-15); BUN/Creatinine Ratio 25.9 (10.0-20.0); Bilirubin, Total 0.4 mg/dL (0.2-1.0); Calcium 8.7 mg/dL (8.7-10.4); Carbon Dioxide 22 mmol/L (20-31); Total Protein 6.7 g/dL (5.7-8.2)
[2024-12-07 06:03] LABS: Chloride 115 mmol/L (98-107); Glucose 158 mg/dL (74-106); Potassium 3.2 mmol/L (3.5-5.1); Sodium 156 mmol/L (136-145)
[2024-12-07 06:05] LABS: Blood Urea Nitrogen 89 mg/dL (9-23)
[2024-12-07] MEDS: POTASSIUM CHLORIDE 20 MEQ in D5W 5% 1,000 ML IV SCH (08:28)
[2024-12-07] MEDS: INSULIN LANTUS (GLARGINE) 1 /0.01ml (100units/ml) SC SCH (09:12)
[2024-12-07] MEDS: CEFEPIME 1GM/50ML 50 ML IV SCH ×2 (09:23→22:02)
[2024-12-07] MEDS ORDERED: VANCOMYCIN PER PHARMACY 0 MG IV SCH (11:45)
[2024-12-07] MEDS: VANCOMYCIN 1.25GM/250ML 250 ML IV ONE (12:01)
[2024-12-07 12:18] LABS: Potassium 3.6 mmol/L (3.5-5.1)
[2024-12-07 12:19] LABS: Anion Gap 15 (5-15); Carbon Dioxide 23 mmol/L (20-31)
[2024-12-07 12:20] LABS: Calcium 8.3 mg/dL (8.7-10.4); Chloride 118 mmol/L (98-107); Sodium 156 mmol/L (136-145)
[2024-12-07 12:25] LABS: BUN/Creatinine Ratio 29.9 (10.0-20.0); Glucose 136 mg/dL (74-106)
[2024-12-07 12:26] LABS: Blood Urea Nitrogen 90 mg/dL (9-23)
[2024-12-07] MEDS: VANCOMYCIN 500mg/100mL 100 ML IV ONE (15:03)
[2024-12-07] MEDS: D5W/SOD CHL 0.45% 1,000 ML IV SCH (16:56)
--- NOTE | 2024-12-07 17:15 | DVHPN2 ---
Subjective I am assuming the care of the patient from today onwards. Patient is currently on insulin drip for diabetic ketoacidosis. Patient was very lethargic. Changes from previous H/P or p: No Changes Objective Vitals Vital Signs Date Time Temp Pulse Resp B/P (MAP) Pulse Ox O2 Delivery O2 Flow Rate FiO2 12/07/24 16:00 99.7 120 25 102/66 (78) 100 211.5 12/07/24 10:00 Nasal Cannula 2.0 12/07/24 10:00 28 Intake/Output Intake and Output 12/07/24 07:00 Intake Total 3276 ml Output Total 1950 ml Balance 1326 ml Intake Oral 0 ml IV Total 3276 ml Output Urine Total 1950 ml Exam HEENT pupils are reactive Neck is supple CV is S1-S2 regular rate and rhythm Respiratory diminished breath sound bases of lungs GI posterior bowel sounds soft nondistended nontender Extremity no edema 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 Medications Current Medications Medications Dose Ordered Sig/[place] Route Start Time Stop Time Status Last Admin Dose Admin Insulin Glargine 15 units DAILY SC 12/07/24 10:00 12/07/24 09:12 15 UNITS Albuterol 2.5 mg Q6HPRN PRN NEB 12/06/24 19:45 Ondansetron HCl 4 mg Q4HP PRN IV 12/06/24 19:45 Hold Acetaminophen 650 mg Q6HP PRN PO 12/06/24 19:45 Nitroglycerin 0.4 mg Q5MINP PRN SL 12/06/24 19:45 Morphine Sulfate 2 mg Q30M PRN IV 12/06/24 19:45 Diagnostic Test (Pha) 1 strip Q90MIN 12/07/24 00:30 12/07/24 16:34 1 STRIP Insulin Human (Reg)/Sodium Chloride 100 ml @ 1 mls/hr Q24H IV 12/07/24 00:30 12/07/24 00:42 16 MLS/HR Dextrose 50 ml PRN PRN IV 12/07/24 00:30 Pantoprazole Sodium 40 mg DAILY IV 12/07/24 04:45 12/07/24 09:23 40 MG Vancomycin HCl 0 ml @ 0 mls/hr UD IV 12/07/24 11:45 Cefepime HCl 50 ml @ 12.5 mls/hr Q12HR IV 12/07/24 22:00 Dextrose/Sodium Chloride 1,000 ml @ 125 mls/hr Q8H IV 12/07/24 16:30 12/07/24 16:56 125 MLS/HR Laboratory Results Laboratory Tests 12/07/24 05:12 12/07/24 11:33 Chemistry Test 12/06/24 22:04 12/07/24 05:12 12/07/24 11:33 Calcium Level 8.6 mg/dL (8.7-10.4) L 8.7 mg/dL (8.7-10.4) 8.3 mg/dL (8.7-10.4) L Albumin 3.7 g/dL (3.2-4.8) Total Protein 6.7 g/dL (5.7-8.2) LFT Test 12/07/24 05:12 Alanine Aminotransferase (ALT) 10 U/L (7-40) Alkaline Phosphatase 96 U/L (46-116) Aspartate Amino Transferase (AST) 19 U/L (13-40) Total Bilirubin 0.4 mg/dL (0.2-1.0) Urinalysis Test 12/06/24 15:54 Urine Color Light-yellow (Yellow) Urine Clarity Turbid (Clear) H Urine pH 5.5 (5.0-9.0) Urine Specific [place] 1.019 (1.001-1.035) Urine Protein Trace (Negative) H Urine Ketones 3+ (Negative) H Urine Blood Trace /uL (Negative) H Urine Nitrite Negative (Negative) Urine Bilirubin Negative (Negative) Urine Urobilinogen Normal mg/dL (Negative) Urine Leukocyte Esterase Negative /uL (Negative) Urine RBC <1 /hpf (0 - 3) Urine Microscopic WBC 1 /HPF (0-3) Urine Squamous Epithelial Cells Few /hpf (<5) Urine Bacteria None seen /hpf (None Seen) Urine Hyaline Casts Many /lpf (0 - 2) Urine Mucus Few (None Seen) Urine Glucose 4+ mg/dL (Normal) H Blood Gas Results Test 12/06/24 18:36 12/06/24 22:15 Arterial Blood pH 7.277 (7.350-7.450) 7.348 (7.350-7.450) FiO2 % 21.0 21.0 Microbiology Microbiology Date/Time Source Procedure Growth Status 12/06/24 23:40 Nose MRSA Screen - Final Complete 12/06/24 15:28 Blood Blood Culture - Preliminary Resulted Assessment/Plan Assessment/Plan 49-year-old male with a known history of insulin-dependent diabetes mellitus, who initially present with the hospital with generalized weakness lethargic with a high blood sugar found to have 1. Severe diabetic ketoacidosis on insulin drip 2. Leukocytosis secondary to 1. 3. Sepsis secondary to Gram-positive bacteremia 4. Acute kidney injury suspected secondary to vasomotor nephropathy 5. Hypernatremia -continue insulin drip, IV hydration, diet as tolerated, IV antibiotics -2D echo to rule out vegetations, infectious disease consultation Plan discussed with: Patient My Orders Orders - ALANA LOPEZ MD Procedure Category Date Status Time Vancomycin Per MADELYN 12/07/24 In Process Pharmacy Protoc 11:18 Vancomycin Per PHA 12/07/24 In Process Pharmacy 11:45 Basic Metabolic Panel LAB 12/07/24 Logged 18:00 Vancomycin,Random LAB 12/08/24 Verified 04:00 Creatinine LAB 12/08/24 Verified 04:00 Vancomycin Per MADELYN 12/07/24 In Process Pharmacy Protoc 15:02 D5w/Sod Chl 0.45% PHA 12/07/24 In Process (D5w 1/2ns) 16:30 Magnesium LAB 12/07/24 Logged 18:00 Magnesium LAB 12/08/24 Verified 00:00 Magnesium LAB 12/08/24 Verified 06:00 Magnesium LAB 12/08/24 Verified 12:00 Magnesium LAB 12/08/24 Verified 18:00 Magnesium LAB 12/09/24 Verified 00:00 Magnesium LAB 12/09/24 Verified 06:00 Magnesium LAB 12/09/24 Verified 12:00 Magnesium LAB 12/09/24 Verified 18:00 Phosphorus LAB 12/07/24 Logged 18:00 Phosphorus LAB 12/08/24 Verified 00:00 Phosphorus LAB 12/08/24 Verified 06:00 Phosphorus LAB 12/08/24 Verified 12:00 Phosphorus LAB 12/08/24 Verified 18:00 Phosphorus LAB 12/09/24 Verified 00:00 Phosphorus LAB 12/09/24 Verified 06:00 Phosphorus LAB 12/09/24 Verified 12:00 Phosphorus LAB 12/09/24 Verified 18:00 Date of Service: Dec 07, 2024 Billing Provider: ALANA LOPEZ MD Common Visit Codes: [id number] INP/OBS CARE(HIGH) ALANA LOPEZ MD Dec 07, 2024 17:15
[2024-12-07 18:46] LABS: Potassium 3.6 mmol/L (3.5-5.1)
[2024-12-07 18:47] LABS: Anion Gap 14 (5-15); Carbon Dioxide 23 mmol/L (20-31)
[2024-12-07 18:53] LABS: BUN/Creatinine Ratio 36.9 (10.0-20.0); Magnesium 1.9 mg/dL (1.6-2.6)
[2024-12-07 19:03] LABS: Calcium 8.1 mg/dL (8.7-10.4); Chloride 119 mmol/L (98-107); Glucose 115 mg/dL (74-106); Sodium 156 mmol/L (136-145)
[2024-12-07 19:04] LABS: Blood Urea Nitrogen 86 mg/dL (9-23)
[2024-12-08] VITALS (27 sets, daily range): BP systolic 92–126; BP diastolic 57–74; PULSE 107–120; RESP 20–30; TEMP 80.4–101.3; O2SAT 90–100
[2024-12-08 00:44] LABS: Anion Gap 12 (5-15); Carbon Dioxide 24 mmol/L (20-31)
[2024-12-08 00:49] LABS: BUN/Creatinine Ratio 36.1 (10.0-20.0); Magnesium 2.0 mg/dL (1.6-2.6)
[2024-12-08 00:58] LABS: Blood Urea Nitrogen 65 mg/dL (9-23); Calcium 8.1 mg/dL (8.7-10.4); Chloride 119 mmol/L (98-107); Glucose 192 mg/dL (74-106); Potassium 3.2 mmol/L (3.5-5.1); Sodium 155 mmol/L (136-145)
[2024-12-08 06:32] LABS: Anion Gap 13 (5-15); Carbon Dioxide 25 mmol/L (20-31)
[2024-12-08 06:35] LABS: Calcium 8.3 mg/dL (8.7-10.4); Chloride 118 mmol/L (98-107); Potassium 3.0 mmol/L (3.5-5.1); Sodium 156 mmol/L (136-145)
[2024-12-08 06:38] LABS: BUN/Creatinine Ratio 37.6 (10.0-20.0)
[2024-12-08 06:41] LABS: Blood Urea Nitrogen 56 mg/dL (9-23); Glucose 207 mg/dL (74-106)
[2024-12-08 06:59] LABS: Magnesium 2.0 mg/dL (1.6-2.6)
[2024-12-08] MEDS: POTASSIUM PHOSPHATE 22 MEQ in SODIUM CHL 0.9% 100 ML IV ONE (08:59)
[2024-12-08] MEDS ORDERED: VANCOMYCIN 1GM/250ML KIT 250 ML IV ONE (11:00)
[2024-12-08 12:47] LABS: Anion Gap 13 (5-15); Carbon Dioxide 26 mmol/L (20-31)
[2024-12-08 12:51] LABS: Calcium 8.3 mg/dL (8.7-10.4); Chloride 118 mmol/L (98-107); Potassium 3.2 mmol/L (3.5-5.1); Sodium 157 mmol/L (136-145)
[2024-12-08 12:53] LABS: BUN/Creatinine Ratio 33.6 (10.0-20.0)
[2024-12-08 12:58] LABS: Blood Urea Nitrogen 45 mg/dL (9-23); Glucose 196 mg/dL (74-106)
[2024-12-08 13:06] LABS: Magnesium 2.0 mg/dL (1.6-2.6)
[2024-12-08] MEDS: VANCOMYCIN 1GM/250ML KIT 250 ML IV ONE (13:32)
[2024-12-08] MEDS: D5W 5% 1,000 ML IV SCH (15:11)
[2024-12-08] MEDS: ACETAMINOPHEN 650 MG RECT SUPP PR PRN (16:08)
--- NOTE | 2024-12-08 17:00 | DVHPN2 ---
Subjective No acute events overnight. 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 Medications Current Medications Medications Dose Ordered Sig/[place] Route Start Time Stop Time Status Last Admin Dose Admin Insulin Glargine 15 units DAILY SC 12/07/24 10:00 12/08/24 10:34 15 UNITS Albuterol 2.5 mg Q6HPRN PRN NEB 12/06/24 19:45 Ondansetron HCl 4 mg Q4HP PRN IV 12/06/24 19:45 Hold Acetaminophen 650 mg Q6HP PRN PO 12/06/24 19:45 Nitroglycerin 0.4 mg Q5MINP PRN SL 12/06/24 19:45 Morphine Sulfate 2 mg Q30M PRN IV 12/06/24 19:45 Diagnostic Test (Pha) 1 strip Q90MIN 12/07/24 00:30 12/08/24 16:34 1 STRIP Dextrose 50 ml PRN PRN IV 12/07/24 00:30 Pantoprazole Sodium 40 mg DAILY IV 12/07/24 04:45 12/08/24 08:59 40 MG Vancomycin HCl 0 ml @ 0 mls/hr UD IV 12/07/24 11:45 Cefepime HCl 50 ml @ 12.5 mls/hr Q12HR IV 12/07/24 22:00 12/08/24 09:00 12.5 MLS/HR Insulin Human (Reg)/Sodium Chloride 100 ml @ 0.5 mls/hr Q24H IV 12/07/24 20:00 12/07/24 20:00 1 MLS/HR Dextrose 1,000 ml @ 125 mls/hr Q8H IV 12/08/24 14:45 12/08/24 15:11 125 MLS/HR Acetaminophen 650 mg Q6HP PRN VT 12/08/24 14:45 12/08/24 16:08 650 MG Laboratory Results Laboratory Tests 12/07/24 05:12 12/08/24 11:49 Chemistry Test 12/07/24 18:09 12/08/24 00:18 12/08/24 05:25 12/08/24 11:49 Calcium Level 8.1 mg/dL (8.7-10.4) L 8.1 mg/dL (8.7-10.4) L 8.3 mg/dL (8.7-10.4) L 8.3 mg/dL (8.7-10.4) L Magnesium Level 1.9 mg/dL (1.6-2.6) # 2.0 mg/dL (1.6-2.6) 2.0 mg/dL (1.6-2.6) 2.0 mg/dL (1.6-2.6) Phosphorus Level 1.4 mg/dL (2.4-5.1) L 1.9 mg/dL (2.4-5.1) L 1.7 mg/dL (2.4-5.1) L 1.5 mg/dL (2.4-5.1) L Urinalysis Test 12/06/24 15:54 Urine Color Light-yellow (Yellow) Urine Clarity Turbid (Clear) H Urine pH 5.5 (5.0-9.0) Urine Specific [place] 1.019 (1.001-1.035) Urine Protein Trace (Negative) H Urine Ketones 3+ (Negative) H Urine Blood Trace /uL (Negative) H Urine Nitrite Negative (Negative) Urine Bilirubin Negative (Negative) Urine Urobilinogen Normal mg/dL (Negative) Urine Leukocyte Esterase Negative /uL (Negative) Urine RBC <1 /hpf (0 - 3) Urine Microscopic WBC 1 /HPF (0-3) Urine Squamous Epithelial Cells Few /hpf (<5) Urine Bacteria None seen /hpf (None Seen) Urine Hyaline Casts Many /lpf (0 - 2) Urine Mucus Few (None Seen) Urine Glucose 4+ mg/dL (Normal) H Microbiology Microbiology Date/Time Source Procedure Growth Status 12/06/24 23:40 Nose MRSA Screen - Final Complete 12/06/24 15:28 Blood Blood Culture - Preliminary Resulted Assessment/Plan Assessment/Plan 49-year-old male with a known history of insulin-dependent diabetes mellitus, who initially present with the hospital with generalized weakness lethargic with a high blood sugar found to have 1. Severe diabetic ketoacidosis on insulin drip 2. Leukocytosis secondary to 1. 3. Sepsis secondary to Gram-positive bacteremia 4. Acute kidney injury suspected secondary to vasomotor nephropathy 5. Hypernatremia -continue insulin drip, IV hydration, diet as tolerated, IV antibiotics -2D echo to rule out vegetations, infectious disease consultation Plan discussed with: Patient My Orders Orders - ALANA LOPEZ MD Procedure Category Date Status Time * Wound Consult CONS 12/07/24 Transmitted Insulin Drip Protocol MADELYN 12/07/24 In Process Basic Metabolic Panel LAB 12/08/24 Logged 18:00 Insulin Drip 100 PHA 12/07/24 In Process Unit/100ml (Myxredlin 20:00 * Dietary Consult CONS 12/08/24 Transmitted 08:25 Vancomycin,Random LAB 12/09/24 Verified 04:00 Blood Culture ALANNA 12/08/24 In Process 14:20 * Infectious Priyanka- Dr. CONS 12/08/24 Transmitted Mallad 14:20 D5w 5% (Dextrose 5%) PHA 12/08/24 In Process 14:45 Acetaminophen PHA 12/08/24 In Process Suppository (Tylenol 14:45 Date of Service: Dec 08, 2024 Billing Provider: ALANA LOPEZ MD Common Visit Codes: [id number] INP/OBS CARE(HIGH) ALANA LOPEZ MD Dec 08, 2024 17:00
[2024-12-08] MEDS: POTASSIUM CHL 20MEQ/100ML 100 ML IV ONE (17:50)
[2024-12-08 19:33] LABS: Anion Gap 13 (5-15); Carbon Dioxide 27 mmol/L (20-31)
[2024-12-08 19:38] LABS: BUN/Creatinine Ratio 36.8 (10.0-20.0)
[2024-12-08 19:39] LABS: Blood Urea Nitrogen 42 mg/dL (9-23); Calcium 7.8 mg/dL (8.7-10.4); Chloride 116 mmol/L (98-107); Glucose 143 mg/dL (74-106); Magnesium 1.9 mg/dL (1.6-2.6); Potassium 3.3 mmol/L (3.5-5.1); Sodium 156 mmol/L (136-145)
[2024-12-08] MEDS: INSULIN DRIP 100 UNIT/100ML 100 ML IV SCH (22:40)
[2024-12-08] MEDS: POTASSIUM PHOSPHATE 26.4 MEQ in SODIUM CHL 0.9% 100 ML IV ONE (23:15)
[2024-12-09] VITALS (25 sets, daily range): BP systolic 99–118; BP diastolic 56–72; PULSE 83–116; RESP 19–29; TEMP 99.1–100.8; O2SAT 91–99
[2024-12-09 01:13] LABS: Anion Gap 13 (5-15); Carbon Dioxide 26 mmol/L (20-31)
[2024-12-09 01:16] LABS: Calcium 8.1 mg/dL (8.7-10.4); Chloride 114 mmol/L (98-107); Potassium 3.4 mmol/L (3.5-5.1); Sodium 153 mmol/L (136-145)
[2024-12-09 01:18] LABS: BUN/Creatinine Ratio 29.5 (10.0-20.0); Magnesium 2.0 mg/dL (1.6-2.6)
[2024-12-09 01:36] LABS: Blood Urea Nitrogen 31 mg/dL (9-23); Glucose 162 mg/dL (74-106)
[2024-12-09 05:53] LABS: Hematocrit 32.0 % (41.0-53.0); Hemoglobin 11.1 g/dL (13.5-17.5); Mean Corpuscular Hemoglobin 29.2 pg (28.0-32.0); Mean Corpuscular Volume 84.1 fL (80.0-100.0); Nucleated Red Blood Cells % 0.1 %
[2024-12-09 06:02] LABS: Anion Gap 14 (5-15); Carbon Dioxide 26 mmol/L (20-31)
[2024-12-09 06:08] LABS: BUN/Creatinine Ratio 29.7 (10.0-20.0); Magnesium 2.0 mg/dL (1.6-2.6)
[2024-12-09 06:14] LABS: Blood Urea Nitrogen 30 mg/dL (9-23); Calcium 7.9 mg/dL (8.7-10.4); Chloride 111 mmol/L (98-107); Glucose 189 mg/dL (74-106); Potassium 3.3 mmol/L (3.5-5.1); Sodium 151 mmol/L (136-145)
--- NOTE | 2024-12-09 11:39 | DVHINCON2 ---
Date of service: Dec 09, 2024 Referring Physician Reina Jennings MD Reason for Consultation Bacteremia History of Present Illness History of Present Illness 49-year-old male presents for evaluation of altered mental status. Patient was found altered by family members. In the feel patient's blood sugar was reading high in the patient was hypotensive. Information obtained from chart Currently patient is lethargic oriented x2. admitted in [facility] for DKA management patient has positive blood cultures hence ID is consulted Past Medical History Past Medical History Diabetes mellitus Past Surgical History Past Surgical History None Family History Family History Noncontributory Allergies: Coded Allergies: NO KNOWN ALLERGIES (Unverified , 12/08/24) Allergies Allergies: Coded Allergies: UNOBTAINABLE (Unverified , 12/09/24) Current Medications Current Medications Medications (Trade) Dose Ordered Sig/[place] Route PRN Reason Start Time Stop Time Status Last Admin Potassium Chloride 100 ml @ 50 mls/hr Q2H IV 12/09/24 07:00 12/09/24 10:59 Review of Systems Review of Systems Review of Systems Review of systems are limited due to the patient's altered mental status. Allergies: Coded Allergies: UNOBTAINABLE (Unverified , 12/09/24) Vital Signs Vital Signs Date Time Temp Pulse Resp B/P (MAP) Pulse Ox O2 Delivery O2 Flow Rate FiO2 12/09/24 06:50 99 Nasal Cannula 2.0 12/09/24 06:50 28 12/09/24 06:00 99.3 100 21 110/69 (83) 210.7 Physical Exam Gen: 49-year-old male in mild distress. Skin: Warm, dry, normal color and texture, no rash. HEENT: Normocephalic atraumatic, mucous membranes moist and pink. Neck: supple Pulmonary: Clear to auscultation bilaterally. Cardiac: Sinus tachycardia Abdomen: Soft, nontender, nondistended, bowel sounds present all 4 quadrants, no guarding, no rigidity, no organomegaly. Extremities: No cyanosis, clubbing, no edema Neuro: defer Labs/Diagnostic Data Labs Test 12/09/24 10:14 12/09/24 05:06 12/07/24 05:12 12/06/24 22:15 Range/Units POC Glucose 191 H 70-106 mg/dl White Blood Count 19.1 H 4.4-10.8 10^3/uL Red Blood Count 3.80 L 4.5-5.90 10^6/uL Hemoglobin 11.1 L 13.5-17.5 g/dL Hematocrit 32.0 #L 41.0-53.0 % Mean Corpuscular Volume 84.1 80.0-100.0 fL Mean Corpuscular Hemoglobin 29.2 28.0-32.0 pg Mean Corpuscular Hemoglobin Concent 34.7 32.0-36.0 g/dL Red Cell Distribution Width 12.8 11.8-14.3 % Platelet Count 172 # 140-450 10^3/uL Mean Platelet Volume 7.6 6.9-10.8 fL Neutrophils (%) (Auto) 90.9 H 37.0-80.0 % Lymphocytes (%) (Auto) 3.1 L 10.0-50.0 % Monocytes (%) (Auto) 5.9 0.0-12.0 % Eosinophils (%) (Auto) 0.0 0.0-7.0 % Basophils (%) (Auto) 0.1 0.0-2.0 % Neutrophils # (Auto) 17.4 H 1.6-8.6 10 ^3/uL Lymphocytes # (Auto) 0.6 0.4-5.4 10 ^3/uL Monocytes # (Auto) 1.1 0-1.3 10 ^3/uL Eosinophils # (Auto) 0 0-0.8 10 ^3/uL Basophils # (Auto) 0 0-0.2 10 ^3/uL Nucleated Red Blood Cells 0.1 % Sodium Level 151 H 136-145 mmol/L Potassium Level 3.3 L 3.5-5.1 mmol/L Chloride Level 111 H 98-107 mmol/L Carbon Dioxide Level 26 20-31 mmol/L Anion Gap 14 5-15 Blood Urea Nitrogen 30 H 9-23 mg/dL Creatinine 1.01 0.700-1.30 mg/dL Glomerular Filtration Rate Calc 91 >90 mL/min BUN/Creatinine Ratio 29.7 H 10.0-20.0 Serum Glucose 189 H 74-106 mg/dL Calcium Level 7.9 L 8.7-10.4 mg/dL Phosphorus Level 2.6 2.4-5.1 mg/dL Magnesium Level 2.0 1.6-2.6 mg/dL Random Vancomycin Level 11.7 H 5-10 ug/mL Total Bilirubin 0.4 0.2-1.0 mg/dL Aspartate Amino Transferase (AST) 19 13-40 U/L Alanine Aminotransferase (ALT) 10 7-40 U/L Alkaline Phosphatase 96 46-116 U/L Total Protein 6.7 5.7-8.2 g/dL Albumin 3.7 3.2-4.8 g/dL Blood Gas Specimen Type Arterial Blood Gas Sample Site Left radial Blood Gas Patient Temperature 37.0 Arterial Blood Date Drawn [id number] Arterial Blood pH 7.348 L 7.350-7.450 Arterial Blood Partial Pressure CO2 32.8 L 35.0-48.0 mmHg Arterial Blood Partial Pressure O2 81.9 L 83.0-108.0 mmHg Arterial Blood HCO3 17.6 L 21.0-28.0 mmol/L Arterial Blood Oxygen Saturation 95.2 94.0-98.0 % Arterial Blood Base Excess -6.9 L -2.0-3.0 mmol/L Arterial Blood Oxyhemoglobin 93.5 L 94.0-98.0 % Arterial Blood Carboxyhemoglobin 1.1 0.5-1.5 % Arterial Blood Methemoglobin 0.7 0.0-1.5 % Frankie Test Yes Blood Gas Total Hemoglobin 14.20 13.5-17.5 g/dL Blood Gas Modality Room air FiO2 % 21.0 Test 12/06/24 17:45 12/06/24 15:54 12/06/24 15:50 12/06/24 15:28 Range/Units Lactic Acid Level 1.8 0.4-2.0 mmol/L Urine Color Light-yellow Yellow Urine Clarity Turbid H Clear Urine pH 5.5 5.0-9.0 Urine Specific [place] 1.019 1.001-1.035 Urine Protein Trace H Negative Urine Ketones 3+ H Negative Urine Blood Trace H Negative /uL Urine Nitrite Negative Negative Urine Bilirubin Negative Negative Urine Urobilinogen Normal Negative mg/dL Urine Leukocyte Esterase Negative Negative /uL Urine RBC <1 0 - 3 /hpf Urine Microscopic WBC 1 0-3 /HPF Urine Squamous Epithelial Cells Few <5 /hpf Urine Bacteria None seen None Seen /hpf Urine Hyaline Casts Many 0 - 2 /lpf Urine Mucus Few None Seen Urine Glucose 4+ H Normal mg/dL Urine Opiates Screen Neg NEGATIVE Urine Fentanyl Screen Neg NEGATIVE Urine Barbiturates Screen Neg NEGATIVE Urine Phencyclidine Screen Neg NEGATIVE Urine Amphetamines Screen Neg NEGATIVE Urine Benzodiazepines Screen Neg NEGATIVE Urine Cocaine Screen Neg NEGATIVE Urine Cannabinoids Screen Neg NEGATIVE Blood Gas Critical Value Read Back Yes Blood Gas Notified Whom Dr. ayala Blood Gas Notified Time [id number] Blood Gas Notified By Tiago william, jg Differential Total Cells Counted 100.0 100 Neutrophils % (Manual) 84 H 37.0-80.0 Band Neutrophils % (Manual) 6 Lymphocytes % (Manual) 2 L 10.0-50.0 Monocytes % (Manual) 8 0-12 Eosinophils % (Manual) 0 0-7 Basophils % (Manual) 0 0.0-2.0 Metamyelocytes % (manual) 0 Myelocytes % (Manual) 0 Promyelocytes % (Manual) 0 Blast Cells % (Manual) 0 Reactive Lymphocytes 0 Platelet Estimate Adequate Red Blood Cell Morphology Normal Serum Osmolality 456 H 278-298 mOsm/kg Beta-Hydroxybutyric Acid > 4.500 H < 0.4 mmol/L Plasma/Serum Blood Alcohol 7.2 <10 mg/dL Microbiology Date/Time Source Procedure Growth Status 12/06/24 23:40 Nose MRSA Screen - Final Complete 12/06/24 15:28 Blood Blood Culture - Preliminary Resulted Assessment Assessment/Plan Sepsis Bacteremia due to staphylococcus hemolyticus Diabetic ketoacidosis Metabolic encephalopathy Pneumonia leukocytosis KYLER resolving Hypokalemia Plan currently in [facility] for DKA protocol he is febrile Continue IV Vancomycin/ IV cefepime , follow vancomycin trough, creatinine IV fluids recommend sputum culture follow blood culture, prelim shows Staphylococcus hemolyticus probably from skin repeat blood cultures are ordered consider ECHO MRSA NAAT trend CBC daily PRognosis gaurded Total critical care time excluding procedures performed this 65 minutes. Discussed with treatment team Plan/Recommendation Plan discussed with: Other FELECIA BROWN MD Dec 09, 2024 11:39
[2024-12-09] MEDS: POTASSIUM CHL 20MEQ/100ML 100 ML IV SCH (12:16)
[2024-12-09 13:52] LABS: Magnesium 1.8 mg/dL (1.6-2.6)
--- NOTE | 2024-12-09 16:14 | DVHINCON2 ---
Date Seen: Dec 09, 2024 Referring Physician MD Reina Reason for Consultation Rule out infective endocarditis History of Present Illness This is a 49-year-old male patient who presents to the emergency room with chief complaint of altered level of mentation. Prior to emergency room arrival, the patient mentions multiple episodes of nausea and vomiting. He reports "passing out" and waking up in the hospital. Per emergency room provider notes, the patient was found altered by family members. EMS was called and the patient was brought to emergency room for further evaluation. Cardiology has been consulted at this time to rule out infective endocarditis. At the time of assessment, the patient is now alert and oriented and able to answer all questions appropriately. Initial twelve lead electrocardiogram reveals normal sinus rhythm with baseline wander and artifact in multiple leads. No troponin levels drawn during this admission. Patient denies any cardiac symptoms such as chest pain, palpitations, shortness of breath, or dizziness. The patient denies any previous medical history and does not see a primary care physician. Past Medical History Patient denies any past medical history Past Surgical History Denies any previous surgeries Family History Family history reviewed. Social History Denies the use of tobacco, alcohol or illicit drugs. Allergies: Coded Allergies: NO KNOWN ALLERGIES (Unverified , 12/08/24) Home Meds Denies taking any prescribed medications Current Medications Current Medications Medications (Trade) Dose Ordered Sig/[place] Route PRN Reason Start Time Stop Time Status Last Admin Insulin Human (Reg)/Sodium Chloride 100 ml @ 0.5 mls/hr Q24H IV 12/08/24 22:45 12/09/24 06:00 Potassium Chloride 100 ml @ 50 mls/hr Q2H IV 12/09/24 07:00 12/09/24 10:59 DC 12/09/24 14:20 Phenol/Menthol (Chloraseptic) 1 spr Q2HP PRN MT FOR SORE THROAT 12/09/24 14:30 Review of Systems Constitutional: No symptom reported Ears, Nose, & Throat: No symptom reported Eyes: No symptom reported Neurological: Altered level of mentation Pulmonary/Respiratory: No symptoms reported Cardiovascular: No symptom reported Gastrointestinal: Nausea and vomiting Genitourinary: No symptom reported Musculoskeletal: No symptom reported Skin: No symptom reported Psychiatric: No symptom reported Endocrine: No symptom reported Hematologic/Lymphatic: No symptom reported Vital Signs Vital Signs Date Time Temp Pulse Resp B/P (MAP) Pulse Ox O2 Delivery O2 Flow Rate FiO2 12/09/24 08:00 99 20 98 Nasal Cannula* 2 28 12/09/24 06:00 99.3 110/69 (83) 210.7 Physical Exam General Appearance: Cooperative. Well-developed. Well-nourished. No acute distress. Pulmonary/Respiratory: Clear, bilateral breaths sounds. Cardiovascular/Chest: Regular rate and rhythm. Peripheral Pulses: 2+ Radial (R). 2+ Radial (L). Abdominal Exam: Normal bowel sounds. Ankle Exam: Negative ankle edema Lower extremities: Negative lower extremity edema Neuro/Mental Status: A/OX4, coherent. Thoughts/Psych: Normal thought pattern. Appropriate mood and affect. Good judgment and insight. Appearance: No acute distress. Skin Exam: Left great toe wound noted with purplish discoloration. Skin warm and dry Labs/Diagnostic Data Labs Test 12/09/24 14:58 12/09/24 13:19 12/09/24 05:06 12/07/24 05:12 Range/Units POC Glucose 156 H 70-106 mg/dl Phosphorus Level 1.9 L 2.4-5.1 mg/dL Magnesium Level 1.8 1.6-2.6 mg/dL White Blood Count 19.1 H 4.4-10.8 10^3/uL Red Blood Count 3.80 L 4.5-5.90 10^6/uL Hemoglobin 11.1 L 13.5-17.5 g/dL Hematocrit 32.0 #L 41.0-53.0 % Mean Corpuscular Volume 84.1 80.0-100.0 fL Mean Corpuscular Hemoglobin 29.2 28.0-32.0 pg Mean Corpuscular Hemoglobin Concent 34.7 32.0-36.0 g/dL Red Cell Distribution Width 12.8 11.8-14.3 % Platelet Count 172 # 140-450 10^3/uL Mean Platelet Volume 7.6 6.9-10.8 fL Neutrophils (%) (Auto) 90.9 H 37.0-80.0 % Lymphocytes (%) (Auto) 3.1 L 10.0-50.0 % Monocytes (%) (Auto) 5.9 0.0-12.0 % Eosinophils (%) (Auto) 0.0 0.0-7.0 % Basophils (%) (Auto) 0.1 0.0-2.0 % Neutrophils # (Auto) 17.4 H 1.6-8.6 10 ^3/uL Lymphocytes # (Auto) 0.6 0.4-5.4 10 ^3/uL Monocytes # (Auto) 1.1 0-1.3 10 ^3/uL Eosinophils # (Auto) 0 0-0.8 10 ^3/uL Basophils # (Auto) 0 0-0.2 10 ^3/uL Nucleated Red Blood Cells 0.1 % Sodium Level 151 H 136-145 mmol/L Potassium Level 3.3 L 3.5-5.1 mmol/L Chloride Level 111 H 98-107 mmol/L Carbon Dioxide Level 26 20-31 mmol/L Anion Gap 14 5-15 Blood Urea Nitrogen 30 H 9-23 mg/dL Creatinine 1.01 0.700-1.30 mg/dL Glomerular Filtration Rate Calc 91 >90 mL/min BUN/Creatinine Ratio 29.7 H 10.0-20.0 Serum Glucose 189 H 74-106 mg/dL Calcium Level 7.9 L 8.7-10.4 mg/dL Random Vancomycin Level 11.7 H 5-10 ug/mL Total Bilirubin 0.4 0.2-1.0 mg/dL Aspartate Amino Transferase (AST) 19 13-40 U/L Alanine Aminotransferase (ALT) 10 7-40 U/L Alkaline Phosphatase 96 46-116 U/L Total Protein 6.7 5.7-8.2 g/dL Albumin 3.7 3.2-4.8 g/dL Test 12/06/24 22:15 12/06/24 17:45 12/06/24 15:54 12/06/24 15:50 Range/Units Blood Gas Specimen Type Arterial Blood Gas Sample Site Left radial Blood Gas Patient Temperature 37.0 Arterial Blood Date Drawn [id number] Arterial Blood pH 7.348 L 7.350-7.450 Arterial Blood Partial Pressure CO2 32.8 L 35.0-48.0 mmHg Arterial Blood Partial Pressure O2 81.9 L 83.0-108.0 mmHg Arterial Blood HCO3 17.6 L 21.0-28.0 mmol/L Arterial Blood Oxygen Saturation 95.2 94.0-98.0 % Arterial Blood Base Excess -6.9 L -2.0-3.0 mmol/L Arterial Blood Oxyhemoglobin 93.5 L 94.0-98.0 % Arterial Blood Carboxyhemoglobin 1.1 0.5-1.5 % Arterial Blood Methemoglobin 0.7 0.0-1.5 % Frankie Test Yes Blood Gas Total Hemoglobin 14.20 13.5-17.5 g/dL Blood Gas Modality Room air FiO2 % 21.0 Lactic Acid Level 1.8 0.4-2.0 mmol/L Urine Color Light-yellow Yellow Urine Clarity Turbid H Clear Urine pH 5.5 5.0-9.0 Urine Specific [place] 1.019 1.001-1.035 Urine Protein Trace H Negative Urine Ketones 3+ H Negative Urine Blood Trace H Negative /uL Urine Nitrite Negative Negative Urine Bilirubin Negative Negative Urine Urobilinogen Normal Negative mg/dL Urine Leukocyte Esterase Negative Negative /uL Urine RBC <1 0 - 3 /hpf Urine Microscopic WBC 1 0-3 /HPF Urine Squamous Epithelial Cells Few <5 /hpf Urine Bacteria None seen None Seen /hpf Urine Hyaline Casts Many 0 - 2 /lpf Urine Mucus Few None Seen Urine Glucose 4+ H Normal mg/dL Urine Opiates Screen Neg NEGATIVE Urine Fentanyl Screen Neg NEGATIVE Urine Barbiturates Screen Neg NEGATIVE Urine Phencyclidine Screen Neg NEGATIVE Urine Amphetamines Screen Neg NEGATIVE Urine Benzodiazepines Screen Neg NEGATIVE Urine Cocaine Screen Neg NEGATIVE Urine Cannabinoids Screen Neg NEGATIVE Blood Gas Critical Value Read Back Yes Blood Gas Notified Whom Dr. ayala Blood Gas Notified Time [id number] Blood Gas Notified By Tiago william, multilith operator Test 12/06/24 15:28 Range/Units Differential Total Cells Counted 100.0 100 Neutrophils % (Manual) 84 H 37.0-80.0 Band Neutrophils % (Manual) 6 Lymphocytes % (Manual) 2 L 10.0-50.0 Monocytes % (Manual) 8 0-12 Eosinophils % (Manual) 0 0-7 Basophils % (Manual) 0 0.0-2.0 Metamyelocytes % (manual) 0 Myelocytes % (Manual) 0 Promyelocytes % (Manual) 0 Blast Cells % (Manual) 0 Reactive Lymphocytes 0 Platelet Estimate Adequate Red Blood Cell Morphology Normal Serum Osmolality 456 H 278-298 mOsm/kg Beta-Hydroxybutyric Acid > 4.500 H < 0.4 mmol/L Plasma/Serum Blood Alcohol 7.2 <10 mg/dL Microbiology Date/Time Source Procedure Growth Status 12/06/24 23:40 Nose MRSA Screen - Final Complete 12/06/24 15:28 Blood Blood Culture - Preliminary Staphylococcus haemolyticus Resulted Assessment Rule out infective endocarditis Rule out structural heart disease Sepsis with bacteremia Diabetic ketoacidosis with Hgb A1c 11.4% Acute kidney injury, resolved Hypokalemia Plan/Recommendation We will continue with the following plan/recommendations (Dr. Royal): Case discussed with . Primary team has requested for Cardiology to rule out infective endocarditis. The patient noted to have bacteremia and pyrexia. Patient offered a transesophageal echocardiogram to rule out infective endoc arditis. Procedure discussed with the patient full detail. Patient understands and is agreeable to undergo transesophageal echocardiogram. We will schedule the patient for transesophageal echocardiogram with bubble study on 12/10/2024. Thank you for allowing us to care for this patient. Please call with any questions or concerns. Critical care time spent: 44 minutes This medical document was created using an electronic medical record system with voice recognition software and computerized dictation system. Although this document has been carefully reviewed, there might still be some phonetic and typographical errors. Occasional wrong-word or ``sound-alike substitutions may have occurred due to the inherent limitations of voice recognition software. These areas are purely typographical due to imperfections of the software programs and do not reflect any compromise in the patient's medical care. Please read the chart carefully and recognize, using context, where these substitutions have occurred. Plan discussed with: Patient NYHA Physical activity limitations: NA Date of Service: Dec 09, 2024 Billing Provider: SERGE DAVIS Cardiology Common Codes: [id number] INP/OBS CARE (High) Cardiology Consultation Codes: [id number] CONSULT <45MIN SERGE DAVIS Dec 09, 2024 16:14
[2024-12-09 16:32] LABS: Triglycerides 91 mg/dL (< 150)
[2024-12-09 16:35] LABS: Cholesterol 81 mg/dL (< 200)
[2024-12-09 16:48] LABS: HDL Cholesterol 31 mg/dL (40-59)
[2024-12-09] MEDS: SORE THROAT SPRAY 6OZ BOTTLE MT PRN (17:02)
[2024-12-09] MEDS: VANCOMYCIN 1GM/250ML KIT 250 ML IV SCH (17:52)
--- NOTE | 2024-12-09 17:59 | DVHPN2 ---
Subjective No acute events overnight. Patient is complaining of throat pain does not want to eat. Changes from previous H/P or p: No Changes Objective Vitals Vital Signs Date Time Temp Pulse Resp B/P (MAP) Pulse Ox O2 Delivery O2 Flow Rate FiO2 12/09/24 17:09 100.6 12/09/24 12:00 96 12/09/24 10:00 98 Nasal Cannula* 2 28 12/09/24 08:00 20 12/09/24 06:00 110/69 (83) Intake/Output Intake and Output 12/09/24 07:00 Intake Total 3147.2 ml Output Total 2310 ml Balance 837.2 ml Intake Oral 0 ml IV Total 3147.2 ml Output Urine Total 2310 ml Exam HEENT pupils are reactive Neck is supple CV is S1-S2 regular rate and rhythm Respiratory viral clear GI posterior bowel sound Extremity no edema BMX RIDER no motor deficit Medications Current Medications Medications Dose Ordered Sig/[place] Route Start Time Stop Time Status Last Admin Dose Admin Insulin Glargine 15 units DAILY SC 12/07/24 10:00 12/09/24 10:26 15 UNITS Albuterol 2.5 mg Q6HPRN PRN NEB 12/06/24 19:45 Cancel Ondansetron HCl 4 mg Q4HP PRN IV 12/06/24 19:45 Hold Acetaminophen 650 mg Q6HP PRN PO 12/06/24 19:45 Nitroglycerin 0.4 mg Q5MINP PRN SL 12/06/24 19:45 Morphine Sulfate 2 mg Q30M PRN IV 12/06/24 19:45 Diagnostic Test (Pha) 1 strip Q90MIN 12/07/24 00:30 12/09/24 17:51 1 STRIP Dextrose 50 ml PRN PRN IV 12/07/24 00:30 Pantoprazole Sodium 40 mg DAILY IV 12/07/24 04:45 12/09/24 10:05 40 MG Vancomycin HCl 0 ml @ 0 mls/hr UD IV 12/07/24 11:45 Cefepime HCl 50 ml @ 12.5 mls/hr Q12HR IV 12/07/24 22:00 12/09/24 10:05 12.5 MLS/HR Dextrose 1,000 ml @ 125 mls/hr Q8H IV 12/08/24 14:45 12/09/24 16:02 125 MLS/HR Acetaminophen 650 mg Q6HP PRN [place] 12/08/24 14:45 12/09/24 17:09 650 MG Insulin Human (Reg)/Sodium Chloride 100 ml @ 0.5 mls/hr Q24H IV 12/08/24 22:45 12/09/24 06:00 2 MLS/HR Phenol/Menthol 1 spr Q2HP PRN MT 12/09/24 14:30 12/09/24 17:02 1 SPR Vancomycin HCl 250 ml @ 250 mls/hr DAILY@0500,1700 IV 12/09/24 17:17 Laboratory Results Laboratory Tests 12/09/24 05:06 Chemistry Test 12/08/24 18:50 12/09/24 00:21 12/09/24 05:06 12/09/24 13:19 Calcium Level 7.8 mg/dL (8.7-10.4) L 8.1 mg/dL (8.7-10.4) L 7.9 mg/dL (8.7-10.4) L Magnesium Level 1.9 mg/dL (1.6-2.6) 2.0 mg/dL (1.6-2.6) 2.0 mg/dL (1.6-2.6) 1.8 mg/dL (1.6-2.6) Phosphorus Level 1.2 mg/dL (2.4-5.1) L 1.7 mg/dL (2.4-5.1) L 2.6 mg/dL (2.4-5.1) 1.9 mg/dL (2.4-5.1) L Lipid panel Test 12/09/24 13:19 Cholesterol Level 81 mg/dL (< 200) HDL Cholesterol 31 mg/dL (40-59) L Triglycerides Level 91 mg/dL (< 150) HgA1c, TSH Test 12/09/24 05:06 12/09/24 13:19 Hemoglobin A1c 11.4 % A1C (<5.7) H Thyroid Stimulating Hormone (TSH) 0.87 uIU/mL (0.55-4.78) Urinalysis Test 12/06/24 15:54 Urine Color Light-yellow (Yellow) Urine Clarity Turbid (Clear) H Urine pH 5.5 (5.0-9.0) Urine Specific [place] 1.019 (1.001-1.035) Urine Protein Trace (Negative) H Urine Ketones 3+ (Negative) H Urine Blood Trace /uL (Negative) H Urine Nitrite Negative (Negative) Urine Bilirubin Negative (Negative) Urine Urobilinogen Normal mg/dL (Negative) Urine Leukocyte Esterase Negative /uL (Negative) Urine RBC <1 /hpf (0 - 3) Urine Microscopic WBC 1 /HPF (0-3) Urine Squamous Epithelial Cells Few /hpf (<5) Urine Bacteria None seen /hpf (None Seen) Urine Hyaline Casts Many /lpf (0 - 2) Urine Mucus Few (None Seen) Urine Glucose 4+ mg/dL (Normal) H Microbiology Microbiology Date/Time Source Procedure Growth Status 12/08/24 16:09 Blood Blood Culture - Preliminary NO GROWTH AFTER 24 HOURS OF INCUBATION. Resulted 12/06/24 23:40 Nose MRSA Screen - Final Complete Assessment/Plan Assessment/Plan 49-year-old male with a known history of insulin-dependent diabetes mellitus, who initially present with the hospital with generalized weakness lethargic with a high blood sugar found to have 1. Severe diabetic ketoacidosis on insulin drip 2. Leukocytosis secondary to 1. 3. Sepsis secondary to Gram-positive bacteremia 4. Acute kidney injury suspected secondary to vasomotor nephropathy 5. Hypernatremia -continue insulin drip, IV hydration, diet as tolerated, IV antibiotics -2D echo to rule out vegetations, infectious disease consultation Plan discussed with: Patient My Orders Orders - ALANA LOPEZ MD Procedure Category Date Status Time Cleanse Wound With [facility] 12/08/24 In Process Wound Clean 16:23 Insulin Drip 100 PHA 12/08/24 In Process Unit/100ml (Myxredlin 22:45 Respiratory Culture ALANNA 12/09/24 In Process W/ Gs 13:31 * Cardiology Consult CONS 12/09/24 Transmitted 14:19 Sore Throat Page PHA 12/09/24 In Process (Chloraseptic) 14:30 Podiatry Consult CONS 12/09/24 Transmitted 14:19 Vancomycin,Trough LAB 12/10/24 Verified 16:00 Creatinine LAB 12/10/24 Verified 16:00 Vancomycin 1gm/250ml PHA 12/09/24 In Process Kit 17:17 Vancomycin Per MADELYN 12/10/24 In Process Pharmacy Protoc 17:00 *Dr. Nia Alfonso -Da CONS 12/09/24 Transmitted Shital 17:49 Date of Service: Dec 09, 2024 Billing Provider: ALANA LOPEZ MD Common Visit Codes: [id number] INP/OBS CARE(HIGH) ALANA LOPEZ MD Dec 09, 2024 17:59
[2024-12-09 18:46] LABS: Magnesium 1.7 mg/dL (1.6-2.6)
[2024-12-09 18:48] LABS: Alkaline Phosphatase 88 U/L (46-116); Anion Gap 10 (5-15); BUN/Creatinine Ratio 25.6 (10.0-20.0); Bilirubin, Total 0.7 mg/dL (0.2-1.0); Blood Urea Nitrogen 22 mg/dL (9-23); Carbon Dioxide 28 mmol/L (20-31); Total Protein 5.8 g/dL (5.7-8.2)
[2024-12-09 18:59] LABS: Alanine Aminotransferase < 9 U/L (7-40); Albumin 3.1 g/dL (3.2-4.8); Calcium 7.6 mg/dL (8.7-10.4); Chloride 109 mmol/L (98-107); Glucose 171 mg/dL (74-106); Potassium 3.3 mmol/L (3.5-5.1); Sodium 147 mmol/L (136-145)
[2024-12-09] MEDS: POTASSIUM PHOSPHATE 22 MEQ in SODIUM CHL 0.9% 100 ML IV ONE (21:12)
[2024-12-10] VITALS (62 sets, daily range): BP systolic 87–116; BP diastolic 47–73; PULSE 78–111; RESP 10–42; TEMP 100–101.7; O2SAT 75–100
[2024-12-10 05:18] LABS: Hematocrit 30.4 % (41.0-53.0); Hemoglobin 10.9 g/dL (13.5-17.5); Mean Corpuscular Hemoglobin 29.7 pg (28.0-32.0); Mean Corpuscular Volume 82.5 fL (80.0-100.0); Nucleated Red Blood Cells % 0.1 %
[2024-12-10 05:29] LABS: INR 1.41 (0.9-1.15); Partial Thromboplastin Time 36.4 SEC (24.5-34.5); Prothrombin Time 14.4 sec (9.3-11.8)
[2024-12-10 05:30] LABS: Anion Gap 9 (5-15); Calcium 7.8 mg/dL (8.7-10.4); Carbon Dioxide 30 mmol/L (20-31); Chloride 105 mmol/L (98-107); Potassium 3.1 mmol/L (3.5-5.1); Sodium 144 mmol/L (136-145)
[2024-12-10 05:36] LABS: BUN/Creatinine Ratio 18.6 (10.0-20.0); Blood Urea Nitrogen 16 mg/dL (9-23)
[2024-12-10 05:38] LABS: Glucose 165 mg/dL (74-106)
[2024-12-10] MEDS: MAGNESIUM SULFATE 1GM/100ML 100 ML IV ONE (08:40)
[2024-12-10] MEDS: POTASSIUM CHL 20MEQ/100ML 100 ML IV SCH (08:41)
--- NOTE | 2024-12-10 10:22 | DVHPN2 ---
Progress Note - Dictate Date Seen: Dec 10, 2024 Medical Necessity Reason Pt with a Central, PICC or Fol: No Subjective no acute events vital signs Vital Sign Date Time Temp Pulse Resp B/P (MAP) Pulse Ox O2 Delivery O2 Flow Rate FiO2 12/10/24 06:00 100.0 78 22 94/55 (68) 99 212.0 12/09/24 20:00 Nasal Cannula* 2 28 Total Intake and Output 12/09/24 12/09/24 12/09/24 02:30 10:30 18:30 Intake Total 1022.8 ml 1055.4 ml 1067.0 ml Output Total 1000 ml 950 ml Balance 1022.8 ml 55.4 ml 117.0 ml Gen: 49-year-old male in mild distress. Skin: Warm, dry, normal color and texture, no rash. HEENT: Normocephalic atraumatic, mucous membranes moist and pink. Neck: supple Pulmonary: Clear to auscultation bilaterally. Cardiac: Sinus tachycardia Abdomen: Soft, nontender, nondistended, bowel sounds present all 4 quadrants, no guarding, no rigidity, no organomegaly. Extremities: No cyanosis, clubbing, no edema Neuro: defer medications Current Medications Medications Dose Ordered Sig/[place] Route Start Time Stop Time Status Last Admin Dose Admin Insulin Glargine 15 units DAILY SC 12/07/24 10:00 12/10/24 08:47 15 UNITS Albuterol 2.5 mg Q6HPRN PRN NEB 12/06/24 19:45 Cancel Ondansetron HCl 4 mg Q4HP PRN IV 12/06/24 19:45 Hold Acetaminophen 650 mg Q6HP PRN PO 12/06/24 19:45 Nitroglycerin 0.4 mg Q5MINP PRN SL 12/06/24 19:45 Morphine Sulfate 2 mg Q30M PRN IV 12/06/24 19:45 Diagnostic Test (Pha) 1 strip Q90MIN 12/07/24 00:30 12/10/24 09:04 1 STRIP Dextrose 50 ml PRN PRN IV 12/07/24 00:30 Pantoprazole Sodium 40 mg DAILY IV 12/07/24 04:45 12/10/24 08:45 40 MG Vancomycin HCl 0 ml @ 0 mls/hr UD IV 12/07/24 11:45 Cefepime HCl 50 ml @ 12.5 mls/hr Q12HR IV 12/07/24 22:00 12/10/24 08:45 12.5 MLS/HR Dextrose 1,000 ml @ 125 mls/hr Q8H IV 12/08/24 14:45 12/10/24 06:27 125 MLS/HR Acetaminophen 650 mg Q6HP PRN SC 12/08/24 14:45 12/10/24 04:26 650 MG Insulin Human (Reg)/Sodium Chloride 100 ml @ 0.5 mls/hr Q24H IV 12/08/24 22:45 12/09/24 19:58 2 MLS/HR Phenol/Menthol 1 spr Q2HP PRN MT 12/09/24 14:30 12/09/24 17:02 1 SPR Vancomycin HCl 250 ml @ 250 mls/hr DAILY@0500,1700 IV 12/09/24 17:17 12/10/24 04:26 250 MLS/HR Potassium Chloride 100 ml @ 50 mls/hr Q2H IV 12/10/24 07:15 12/10/24 11:14 12/10/24 08:41 50 MLS/HR objective Gen: 49-year-old male in mild distress. Skin: Warm, dry, normal color and texture, no rash. HEENT: Normocephalic atraumatic, mucous membranes moist and pink. Neck: supple Pulmonary: Clear to auscultation bilaterally. Cardiac: Sinus tachycardia Abdomen: Soft, nontender, nondistended, bowel sounds present all 4 quadrants, no guarding, no rigidity, no organomegaly. Extremities: No cyanosis, clubbing, no edema Neuro: defer laboratory and microbiology Laboratory Tests 12/10/24 04:33 Test 12/10/24 04:33 Range/Units Serum Glucose 165 H 74-106 mg/dL Problem List Assessment/Plan Sepsis Bacteremia due to staphylococcus hemolyticus Diabetic ketoacidosis Metabolic encephalopathy Pneumonia leukocytosis KYLER resolving Hypokalemia Plan currently in [facility] for DKA protocol he is febrile Continue IV Vancomycin/ IV cefepime , follow vancomycin trough, creatinine IV fluids recommend sputum culture follow follow blood culture, prelim shows Staphylococcus hemolyticus probably from skin Negative for MRSA in recent blood cultures consider ECHO MRSA NAAT trend CBC daily Prognosis gaurded Total time spent 50minutes during the encounter Discussed with treatment team Dietary Evaluation Review Comments: Nutrition Recommendation 1) Advance to [facility] 60gm diet as medically feasible 2) TPN if NPO > 7 days 3) If feeding tube is placed, consider TF Glucerna 1.2Cal @ 65ml/hr x 24hr (goal). Water flush 160ml Q4H TF at goal volume provides 1872 kcal (100% estimated energy needs), 94 gm protein (100% estimated protein needs), and 1896 ml free water (including flush) 4) Monitor NPO status, lab values, weight trend, and I/O Expected Outcomes/Goals: To meet >75% estimated needs Lab values to improve Fu 2-3 days Plan discussed with: Other Is the fluid challenge complet: Yes Date of Reassessment: Dec 06, 2024 Time of Reassessment: 1644 Blood Culture Time: 1528 Time Antibiotics Given: 1548 Systolic BP: 80 Diastolic BP: 42 Blood Pressure Mean: 55 Respiration: 21 Respiratory Effort: Non-Labored, Labored Respiratory Pattern: Regular Oxygen Saturation: 97 Pulse Rate: 88 Pulse Location: Radial Pulse Strength: Normal Pulse Assessment Method: Palpation Pulse Rhythm: Regular Capillary Refill: < 3 seconds Heart Sounds: S1 & S2 Breath sounds: Clear Skin Moisture: Moist Skin Tugor: WNL Skin Color: WNL FELECIA BROWN MD Dec 10, 2024 10:22
[2024-12-10] MEDS: fentaNYL CITRATE 100 MCG/2 ML VL IV ONE (12:30)
[2024-12-10] MEDS: MIDAZOLAM HCL 2MG/2ML 2ml VIAL (1mg/ml) ONE (12:30)
[2024-12-10] MEDS: NALOXONE HCL 0.4 MG/ML VIAL ONE (12:30)
[2024-12-10] MEDS: MIDAZOLAM HCL 5 MG/ML-1ML VIAL IV ONE (12:30)
[2024-12-10] MEDS: LIDOCAINE VISCOUS 2% 15ML UD MT ONE (12:30)
[2024-12-10] MEDS: FLUMAZENIL 0.1 MG/ML INJ 10ML MDV IV ONE (12:32)
[2024-12-10] MEDS: LIDOCAINE VISCOUS 2% 15ML UD ONE (12:50)
[2024-12-10] MEDS: fentaNYL CITRATE 100 MCG/2 ML VL ONE (12:54)
--- NOTE | 2024-12-10 14:19 | DVHOP2 ---
Operative Report - 2 Report Details Date: 12/10/24 Preop Diagnosis: Sepsis Postop Diagnosis: Sepsis Surgeon: Davide Royal MD Anesthesiologist: Conscious sedation Anesthesia: Mac, Local Consent: The patient was informed of the risks and benefits of the procedure. These include but are not limited to complications of anesthesia, postoperative infection, incomplete relief of symptoms, recurrence of symptoms, damage to blood vessels, nerves and tendons, deep venous thrombosis, pulmonary embolism and possible need for repeat surgery in the future. Complications: No complications Findings: Normal transesophageal echocardiogram Indications for Surgery: Sepsis Name of Procedure Performed Transesophageal echocardiogram Procedure Details Procedure Details: Prior full informed consent obtained the patient was prepped and draped in usual fashion placed in left lateral and semi-Soliz position. Gargle with lidocaine was given. Transesophageal probe was passed without difficulty. Standard views obtained. Conclusions: Technically good study. Sinus rhythm. Normal chamber sizes. Valves are normal. EF of 60% with normal RV function. No significant aortic mitral or tricuspid insufficiency no pulmonic insufficienc y of significance. No masses or vegetations discernible. The valves appear to be structurally normal. No significant anomalies noted. No atrial septal or ventricular septal defects. No pericardial effusion masses or vegetations discernible. A bubble study was performed showing no significant abnormalities. Condition Fair Disposition Still a Patient Date of Service: Dec 10, 2024 Billing Provider: DAVIDE ROYAL Sr., MD Cardiology Common Codes: 26758-AUBNEWD INP/OBS CARE (High) Cardiology Procedure Codes: 06509-JOT W/IMG DOC INCL PROB ACQ DAVIDE ROYAL Sr., MD Dec 10, 2024 14:19
--- NOTE | 2024-12-10 16:43 | DVHINCON2 ---
Date of service: Dec 10, [address] Huang Reason for Consultation KYLER and electrolyte abnormalities History of Present Illness 49 Y/O M with no known history presented with altered mental status. labs were significant for Cr: 5.91 mg/dl, Glu: 1225m Bicarb < 10, A. He denies having history of diabetes, but states over the past few months he was feeling weak and was thirsty, frequently drinking water and urinating. Patient was admitted for severe DKA and was started on IV insulin. His blood cultures are growing staph hemolyticus. Nephrology consulted for KYLER Past Medical History Diabetes Allergies: Coded Allergies: NO KNOWN ALLERGIES (Unverified , 12/08/24) Current Medications Current Medications Medications (Trade) Dose Ordered Sig/[place] Route PRN Reason Start Time Stop Time Status Last Admin Potassium Chloride 100 ml @ 50 mls/hr Q2H IV 12/10/24 07:15 12/10/24 11:14 DC 12/10/24 09:15 Vancomycin HCl 250 ml @ 200 mls/hr Q12H IV 12/10/24 20:00 Review of Systems as per HPI, all other systems were reviewed and are negative H&P Exam Vital Signs/I&O Vital Sign Date Time Temp Pulse Resp B/P (MAP) Pulse Ox O2 Delivery O2 Flow Rate FiO2 12/10/24 17:30 101.5 106 20 114/71 (85) 99 214.7 12/10/24 10:00 Nasal Cannula 2.0 12/10/24 10:00 28 Intake and Output 12/09/24 12/10/24 19:00 07:00 Intake Total 1880.5 ml 1797 ml Output Total 950 ml 1000 ml Balance 930.5 ml 797 ml Intake Oral 0 ml IV Total 1580.5 ml 1797 ml Blood Product 300 ml Output Urine Total 950 ml 1000 ml # Bowel Movements 1 Physical Exam Gen: NAD HEENT: NC,AT Lungs: CTA b/l Cardiac: RRR, no murmur Abd: soft, no tenderness Ext: no edema Neuro: no focal deficits Labs/Diagnostic Data Labs/Diagnostic Data Laboratory Tests Test 12/10/24 18:06 12/10/24 17:37 12/10/24 16:18 12/10/24 15:13 Range/Units POC Glucose 171 H 187 H 204 H 70-106 mg/dl Sodium Level 143 136-145 mmol/L Potassium Level 3.5 3.5-5.1 mmol/L Chloride Level 102 98-107 mmol/L Carbon Dioxide Level 32 H 20-31 mmol/L Anion Gap 9 5-15 Blood Urea Nitrogen 16 9-23 mg/dL Creatinine 0.87 0.700-1.30 mg/dL Glomerular Filtration Rate Calc 105 >90 mL/min BUN/Creatinine Ratio 18.4 10.0-20.0 Serum Glucose 195 H 74-106 mg/dL Calcium Level 7.1 L 8.7-10.4 mg/dL Vancomycin Level Trough 13.5 H 5-10 ug/mL Test 12/10/24 13:34 12/10/24 12:05 12/10/24 10:35 12/10/24 08:57 Range/Units POC Glucose 195 H 192 H 182 H 218 H 70-106 mg/dl Test 12/10/24 07:46 12/10/24 06:15 12/10/24 04:33 12/10/24 04:24 Range/Units POC Glucose 233 H 230 H 192 H 70-106 mg/dl White Blood Count 14.7 H 4.4-10.8 10^3/uL Red Blood Count 3.68 L 4.5-5.90 10^6/uL Hemoglobin 10.9 L 13.5-17.5 g/dL Hematocrit 30.4 L 41.0-53.0 % Mean Corpuscular Volume 82.5 80.0-100.0 fL Mean Corpuscular Hemoglobin 29.7 28.0-32.0 pg Mean Corpuscular Hemoglobin Concent 36.0 32.0-36.0 g/dL Red Cell Distribution Width 12.4 11.8-14.3 % Platelet Count 166 140-450 10^3/uL Mean Platelet Volume 7.5 6.9-10.8 fL Neutrophils (%) (Auto) 85.4 H 37.0-80.0 % Lymphocytes (%) (Auto) 4.3 L 10.0-50.0 % Monocytes (%) (Auto) 9.3 0.0-12.0 % Eosinophils (%) (Auto) 0.9 0.0-7.0 % Basophils (%) (Auto) 0.1 0.0-2.0 % Neutrophils # (Auto) 12.6 H 1.6-8.6 10 ^3/uL Lymphocytes # (Auto) 0.6 0.4-5.4 10 ^3/uL Monocytes # (Auto) 1.4 H 0-1.3 10 ^3/uL Eosinophils # (Auto) 0.1 0-0.8 10 ^3/uL Basophils # (Auto) 0 0-0.2 10 ^3/uL Nucleated Red Blood Cells 0.1 % Prothrombin Time 14.4 H 9.3-11.8 sec Prothrombin Time INR 1.41 H 0.9-1.15 Activated Partial Thromboplast Time 36.4 H 24.5-34.5 SEC Sodium Level 144 136-145 mmol/L Potassium Level 3.1 L 3.5-5.1 mmol/L Chloride Level 105 98-107 mmol/L Carbon Dioxide Level 30 20-31 mmol/L Anion Gap 9 5-15 Blood Urea Nitrogen 16 9-23 mg/dL Creatinine 0.86 0.700-1.30 mg/dL Glomerular Filtration Rate Calc 105 >90 mL/min BUN/Creatinine Ratio 18.6 10.0-20.0 Serum Glucose 165 H 74-106 mg/dL Calcium Level 7.8 L 8.7-10.4 mg/dL Test 12/10/24 03:08 12/10/24 01:22 12/10/24 00:16 12/09/24 22:37 Range/Units POC Glucose 199 H 190 H 184 H 193 H 70-106 mg/dl Test 12/09/24 21:21 12/09/24 19:44 12/09/24 18:04 12/09/24 17:48 Range/Units POC Glucose 191 H 196 H 154 H 70-106 mg/dl Sodium Level 147 H 136-145 mmol/L Potassium Level 3.3 L 3.5-5.1 mmol/L Chloride Level 109 H 98-107 mmol/L Carbon Dioxide Level 28 20-31 mmol/L Anion Gap 10 5-15 Blood Urea Nitrogen 22 9-23 mg/dL Creatinine 0.86 0.700-1.30 mg/dL Glomerular Filtration Rate Calc 105 >90 mL/min BUN/Creatinine Ratio 25.6 H 10.0-20.0 Serum Glucose 171 H 74-106 mg/dL Calcium Level 7.6 L 8.7-10.4 mg/dL Phosphorus Level 0.9 L 2.4-5.1 mg/dL Magnesium Level 1.7 1.6-2.6 mg/dL Total Bilirubin 0.7 0.2-1.0 mg/dL Aspartate Amino Transferase (AST) 25 13-40 U/L Alanine Aminotransferase (ALT) < 9 7-40 U/L Alkaline Phosphatase 88 46-116 U/L Total Protein 5.8 5.7-8.2 g/dL Albumin 3.1 L 3.2-4.8 g/dL Test 12/09/24 16:35 12/09/24 14:58 12/09/24 13:49 12/09/24 13:19 Range/Units POC Glucose 175 H 156 H 170 H 70-106 mg/dl Phosphorus Level 1.9 L 2.4-5.1 mg/dL Magnesium Level 1.8 1.6-2.6 mg/dL Triglycerides Level 91 < 150 mg/dL Cholesterol Level 81 < 200 mg/dL LDL Cholesterol 36 < 100 mg/dL HDL Cholesterol 31 L 40-59 mg/dL Thyroid Stimulating Hormone (TSH) 0.87 0.55-4.78 uIU/mL Test 12/09/24 12:51 12/09/24 11:32 12/09/24 10:14 12/09/24 09:00 Range/Units POC Glucose 168 H 188 H 191 H 216 H 70-106 mg/dl Test 12/09/24 07:34 12/09/24 05:57 12/09/24 05:06 12/09/24 04:52 Range/Units POC Glucose 202 H 227 H 193 H 70-106 mg/dl White Blood Count 19.1 H 4.4-10.8 10^3/uL Red Blood Count 3.80 L 4.5-5.90 10^6/uL Hemoglobin 11.1 L 13.5-17.5 g/dL Hematocrit 32.0 #L 41.0-53.0 % Mean Corpuscular Volume 84.1 80.0-100.0 fL Mean Corpuscular Hemoglobin 29.2 28.0-32.0 pg Mean Corpuscular Hemoglobin Concent 34.7 32.0-36.0 g/dL Red Cell Distribution Width 12.8 11.8-14.3 % Platelet Count 172 # 140-450 10^3/uL Mean Platelet Volume 7.6 6.9-10.8 fL Neutrophils (%) (Auto) 90.9 H 37.0-80.0 % Lymphocytes (%) (Auto) 3.1 L 10.0-50.0 % Monocytes (%) (Auto) 5.9 0.0-12.0 % Eosinophils (%) (Auto) 0.0 0.0-7.0 % Basophils (%) (Auto) 0.1 0.0-2.0 % Neutrophils # (Auto) 17.4 H 1.6-8.6 10 ^3/uL Lymphocytes # (Auto) 0.6 0.4-5.4 10 ^3/uL Monocytes # (Auto) 1.1 0-1.3 10 ^3/uL Eosinophils # (Auto) 0 0-0.8 10 ^3/uL Basophils # (Auto) 0 0-0.2 10 ^3/uL Nucleated Red Blood Cells 0.1 % Sodium Level 151 H 136-145 mmol/L Potassium Level 3.3 L 3.5-5.1 mmol/L Chloride Level 111 H 98-107 mmol/L Carbon Dioxide Level 26 20-31 mmol/L Anion Gap 14 5-15 Blood Urea Nitrogen 30 H 9-23 mg/dL Creatinine 1.01 0.700-1.30 mg/dL Glomerular Filtration Rate Calc 91 >90 mL/min BUN/Creatinine Ratio 29.7 H 10.0-20.0 Serum Glucose 189 H 74-106 mg/dL Hemoglobin A1c 11.4 H <5.7 % A1C Calcium Level 7.9 L 8.7-10.4 mg/dL Phosphorus Level 2.6 2.4-5.1 mg/dL Magnesium Level 2.0 1.6-2.6 mg/dL Random Vancomycin Level 11.7 H 5-10 ug/mL Test 12/09/24 03:08 12/09/24 01:33 12/09/24 00:21 12/09/24 00:00 Range/Units POC Glucose 197 H 208 H 149 H 70-106 mg/dl Sodium Level 153 H 136-145 mmol/L Potassium Level 3.4 L 3.5-5.1 mmol/L Chloride Level 114 H 98-107 mmol/L Carbon Dioxide Level 26 20-31 mmol/L Anion Gap 13 5-15 Blood Urea Nitrogen 31 #H 9-23 mg/dL Creatinine 1.05 0.700-1.30 mg/dL Glomerular Filtration Rate Calc 86 >90 mL/min BUN/Creatinine Ratio 29.5 H 10.0-20.0 Serum Glucose 162 H 74-106 mg/dL Calcium Level 8.1 L 8.7-10.4 mg/dL Phosphorus Level 1.7 L 2.4-5.1 mg/dL Magnesium Level 2.0 1.6-2.6 mg/dL Test 12/08/24 22:29 12/08/24 21:50 12/08/24 19:31 12/08/24 18:50 Range/Units POC Glucose 118 H 126 H 142 H 70-106 mg/dl Sodium Level 156 H 136-145 mmol/L Potassium Level 3.3 L 3.5-5.1 mmol/L Chloride Level 116 H 98-107 mmol/L Carbon Dioxide Level 27 20-31 mmol/L Anion Gap 13 5-15 Blood Urea Nitrogen 42 H 9-23 mg/dL Creatinine 1.14 0.700-1.30 mg/dL Glomerular Filtration Rate Calc 78 >90 mL/min BUN/Creatinine Ratio 36.8 H 10.0-20.0 Serum Glucose 143 H 74-106 mg/dL Calcium Level 7.8 L 8.7-10.4 mg/dL Phosphorus Level 1.2 L 2.4-5.1 mg/dL Magnesium Level 1.9 1.6-2.6 mg/dL Test 12/08/24 17:52 12/08/24 16:36 12/08/24 15:13 12/08/24 13:24 Range/Units POC Glucose 152 H 222 H 248 H 178 H 70-106 mg/dl Test 12/08/24 11:55 12/08/24 11:49 12/08/24 10:19 12/08/24 08:53 Range/Units POC Glucose 189 H 163 H 154 H 70-106 mg/dl Sodium Level 157 H 136-145 mmol/L Potassium Level 3.2 L 3.5-5.1 mmol/L Chloride Level 118 H 98-107 mmol/L Carbon Dioxide Level 26 20-31 mmol/L Anion Gap 13 5-15 Blood Urea Nitrogen 45 #H 9-23 mg/dL Creatinine 1.34 H 0.700-1.30 mg/dL Glomerular Filtration Rate Calc 65 >90 mL/min BUN/Creatinine Ratio 33.6 H 10.0-20.0 Serum Glucose 196 H 74-106 mg/dL Calcium Level 8.3 L 8.7-10.4 mg/dL Phosphorus Level 1.5 L 2.4-5.1 mg/dL Magnesium Level 2.0 1.6-2.6 mg/dL Test 12/08/24 07:43 12/08/24 07:24 12/08/24 06:20 12/08/24 05:25 Range/Units POC Glucose 202 H 204 H 214 H 70-106 mg/dl Sodium Level 156 H 136-145 mmol/L Potassium Level 3.0 L 3.5-5.1 mmol/L Chloride Level 118 H 98-107 mmol/L Carbon Dioxide Level 25 20-31 mmol/L Anion Gap 13 5-15 Blood Urea Nitrogen 56 H 9-23 mg/dL Creatinine 1.49 H 0.700-1.30 mg/dL Glomerular Filtration Rate Calc 57 >90 mL/min BUN/Creatinine Ratio 37.6 H 10.0-20.0 Serum Glucose 207 H 74-106 mg/dL Calcium Level 8.3 L 8.7-10.4 mg/dL Phosphorus Level 1.7 L 2.4-5.1 mg/dL Magnesium Level 2.0 1.6-2.6 mg/dL Random Vancomycin Level 15.4 H 5-10 ug/mL Test 12/08/24 04:32 12/08/24 03:03 12/08/24 01:33 12/08/24 00:18 Range/Units POC Glucose 204 H 196 H 183 H 70-106 mg/dl Sodium Level 155 H 136-145 mmol/L Potassium Level 3.2 L 3.5-5.1 mmol/L Chloride Level 119 H 98-107 mmol/L Carbon Dioxide Level 24 20-31 mmol/L Anion Gap 12 5-15 Blood Urea Nitrogen 65 #H 9-23 mg/dL Creatinine 1.80 H 0.700-1.30 mg/dL Glomerular Filtration Rate Calc 45 >90 mL/min BUN/Creatinine Ratio 36.1 H 10.0-20.0 Serum Glucose 192 H 74-106 mg/dL Calcium Level 8.1 L 8.7-10.4 mg/dL Phosphorus Level 1.9 L 2.4-5.1 mg/dL Magnesium Level 2.0 1.6-2.6 mg/dL Test 12/08/24 00:05 12/07/24 22:46 12/07/24 21:06 12/07/24 19:26 Range/Units POC Glucose 187 H 191 H 144 H 114 H 70-106 mg/dl Test 12/07/24 18:09 12/07/24 17:53 12/07/24 16:27 12/07/24 15:05 Range/Units Sodium Level 156 H 136-145 mmol/L Potassium Level 3.6 3.5-5.1 mmol/L Chloride Level 119 H 98-107 mmol/L Carbon Dioxide Level 23 20-31 mmol/L Anion Gap 14 5-15 Blood Urea Nitrogen 86 *H 9-23 mg/dL Creatinine 2.33 H 0.700-1.30 mg/dL Glomerular Filtration Rate Calc 33 >90 mL/min BUN/Creatinine Ratio 36.9 H 10.0-20.0 Serum Glucose 115 H 74-106 mg/dL Calcium Level 8.1 L 8.7-10.4 mg/dL Phosphorus Level 1.4 L 2.4-5.1 mg/dL Magnesium Level 1.9 # 1.6-2.6 mg/dL POC Glucose 125 H 160 H 159 H 70-106 mg/dl Test 12/07/24 13:29 12/07/24 11:34 12/07/24 11:33 12/07/24 10:27 Range/Units POC Glucose 190 H 139 H 159 H 70-106 mg/dl Sodium Level 156 H 136-145 mmol/L Potassium Level 3.6 3.5-5.1 mmol/L Chloride Level 118 H 98-107 mmol/L Carbon Dioxide Level 23 20-31 mmol/L Anion Gap 15 5-15 Blood Urea Nitrogen 90 *H 9-23 mg/dL Creatinine 3.01 H 0.700-1.30 mg/dL Glomerular Filtration Rate Calc 24 >90 mL/min BUN/Creatinine Ratio 29.9 H 10.0-20.0 Serum Glucose 136 H 74-106 mg/dL Calcium Level 8.3 L 8.7-10.4 mg/dL Test 12/07/24 08:56 12/07/24 07:28 12/07/24 06:05 12/07/24 05:12 Range/Units POC Glucose 119 H 94 135 H 70-106 mg/dl White Blood Count 18.1 H 4.4-10.8 10^3/uL Red Blood Count 4.37 L 4.5-5.90 10^6/uL Hemoglobin 12.9 L 13.5-17.5 g/dL Hematocrit 35.6 #L 41.0-53.0 % Mean Corpuscular Volume 81.5 # 80.0-100.0 fL Mean Corpuscular Hemoglobin 29.5 28.0-32.0 pg Mean Corpuscular Hemoglobin Concent 36.2 H 32.0-36.0 g/dL Red Cell Distribution Width 12.7 11.8-14.3 % Platelet Count 383 140-450 10^3/uL Mean Platelet Volume 7.3 6.9-10.8 fL Neutrophils (%) (Auto) 85.1 H 37.0-80.0 % Lymphocytes (%) (Auto) 2.2 L 10.0-50.0 % Monocytes (%) (Auto) 12.5 H 0.0-12.0 % Eosinophils (%) (Auto) 0.0 0.0-7.0 % Basophils (%) (Auto) 0.2 0.0-2.0 % Neutrophils # (Auto) 15.5 H 1.6-8.6 10 ^3/uL Lymphocytes # (Auto) 0.4 0.4-5.4 10 ^3/uL Monocytes # (Auto) 2.3 H 0-1.3 10 ^3/uL Eosinophils # (Auto) 0 0-0.8 10 ^3/uL Basophils # (Auto) 0 0-0.2 10 ^3/uL Nucleated Red Blood Cells 0.0 % Sodium Level 156 #H 136-145 mmol/L Potassium Level 3.2 L 3.5-5.1 mmol/L Chloride Level 115 #H 98-107 mmol/L Carbon Dioxide Level 22 20-31 mmol/L Anion Gap 19 H 5-15 Blood Urea Nitrogen 89 *H 9-23 mg/dL Creatinine 3.44 H 0.700-1.30 mg/dL Glomerular Filtration Rate Calc 21 >90 mL/min BUN/Creatinine Ratio 25.9 H 10.0-20.0 Serum Glucose 158 #H 74-106 mg/dL Calcium Level 8.7 8.7-10.4 mg/dL Total Bilirubin 0.4 0.2-1.0 mg/dL Aspartate Amino Transferase (AST) 19 13-40 U/L Alanine Aminotransferase (ALT) 10 7-40 U/L Alkaline Phosphatase 96 46-116 U/L Total Protein 6.7 5.7-8.2 g/dL Albumin 3.7 3.2-4.8 g/dL Test 12/07/24 04:37 12/07/24 03:06 12/07/24 01:30 12/06/24 23:48 Range/Units POC Glucose 209 H 335 H 457 *H > 600 *H 70-106 mg/dl Test 12/06/24 22:32 12/06/24 22:31 12/06/24 22:15 12/06/24 22:04 Range/Units POC Glucose > 600 *H > 600 *H 70-106 mg/dl Blood Gas Specimen Type Arterial Blood Gas Sample Site Left radial Blood Gas Patient Temperature 37.0 Arterial Blood Date Drawn [id number] Arterial Blood pH 7.348 L 7.350-7.450 Arterial Blood Partial Pressure CO2 32.8 L 35.0-48.0 mmHg Arterial Blood Partial Pressure O2 81.9 L 83.0-108.0 mmHg Arterial Blood HCO3 17.6 L 21.0-28.0 mmol/L Arterial Blood Oxygen Saturation 95.2 94.0-98.0 % Arterial Blood Base Excess -6.9 L -2.0-3.0 mmol/L Arterial Blood Oxyhemoglobin 93.5 L 94.0-98.0 % Arterial Blood Carboxyhemoglobin 1.1 0.5-1.5 % Arterial Blood Methemoglobin 0.7 0.0-1.5 % Frankie Test Yes Blood Gas Total Hemoglobin 14.20 13.5-17.5 g/dL Blood Gas Modality Room air FiO2 % 21.0 Sodium Level 147 #H 136-145 mmol/L Potassium Level 2.9 L 3.5-5.1 mmol/L Chloride Level 105 # 98-107 mmol/L Carbon Dioxide Level 17 L 20-31 mmol/L Anion Gap 25 H 5-15 Blood Urea Nitrogen 87 #*H 9-23 mg/dL Creatinine 5.18 H 0.700-1.30 mg/dL Glomerular Filtration Rate Calc 13 >90 mL/min BUN/Creatinine Ratio 16.8 10.0-20.0 Serum Glucose 746 #*H 74-106 mg/dL Calcium Level 8.6 L 8.7-10.4 mg/dL Test 12/06/24 21:08 12/06/24 21:06 12/06/24 19:26 12/06/24 19:24 Range/Units POC Glucose > 600 *H > 600 *H > 600 *H > 600 *H 70-106 mg/dl Test 12/06/24 18:36 12/06/24 17:59 12/06/24 17:45 12/06/24 15:54 Range/Units Blood Gas Specimen Type Arterial Blood Gas Sample Site Left radial Blood Gas Patient Temperature 37.0 Arterial Blood Date Drawn [id number] Arterial Blood pH 7.277 L 7.350-7.450 Arterial Blood Partial Pressure CO2 25.1 L 35.0-48.0 mmHg Arterial Blood Partial Pressure O2 99.7 83.0-108.0 mmHg Arterial Blood HCO3 11.5 L 21.0-28.0 mmol/L Arterial Blood Oxygen Saturation 96.7 94.0-98.0 % Arterial Blood Base Excess -13.5 L -2.0-3.0 mmol/L Arterial Blood Oxyhemoglobin 95.6 94.0-98.0 % Arterial Blood Carboxyhemoglobin 0.4 L 0.5-1.5 % Arterial Blood Methemoglobin 0.7 0.0-1.5 % Frankie Test Yes Blood Gas Total Hemoglobin 14.10 13.5-17.5 g/dL Blood Gas Modality Room air FiO2 % 21.0 POC Glucose > 600 *H 70-106 mg/dl Lactic Acid Level 1.8 0.4-2.0 mmol/L Urine Color Light-yellow Yellow Urine Clarity Turbid H Clear Urine pH 5.5 5.0-9.0 Urine Specific [place] 1.019 1.001-1.035 Urine Protein Trace H Negative Urine Ketones 3+ H Negative Urine Blood Trace H Negative /uL Urine Nitrite Negative Negative Urine Bilirubin Negative Negative Urine Urobilinogen Normal Negative mg/dL Urine Leukocyte Esterase Negative Negative /uL Urine RBC <1 0 - 3 /hpf Urine Microscopic WBC 1 0-3 /HPF Urine Squamous Epithelial Cells Few <5 /hpf Urine Bacteria None seen None Seen /hpf Urine Hyaline Casts Many 0 - 2 /lpf Urine Mucus Few None Seen Urine Glucose 4+ H Normal mg/dL Urine Opiates Screen Neg NEGATIVE Urine Fentanyl Screen Neg NEGATIVE Urine Barbiturates Screen Neg NEGATIVE Urine Phencyclidine Screen Neg NEGATIVE Urine Amphetamines Screen Neg NEGATIVE Urine Benzodiazepines Screen Neg NEGATIVE Urine Cocaine Screen Neg NEGATIVE Urine Cannabinoids Screen Neg NEGATIVE Test 12/06/24 15:50 12/06/24 15:28 12/06/24 15:19 12/06/24 15:18 Range/Units Blood Gas Specimen Type Arterial Blood Gas Sample Site Right brachial Blood Gas Patient Temperature 37.0 Arterial Blood Date Drawn [id number] Arterial Blood pH 7.093 *L 7.350-7.450 Arterial Blood Partial Pressure CO2 23.2 L 35.0-48.0 mmHg Arterial Blood Partial Pressure O2 122.7 H 83.0-108.0 mmHg Arterial Blood HCO3 6.9 L 21.0-28.0 mmol/L Arterial Blood Oxygen Saturation 97.0 94.0-98.0 % Arterial Blood Base Excess -21.2 L -2.0-3.0 mmol/L Arterial Blood Oxyhemoglobin 95.9 94.0-98.0 % Arterial Blood Carboxyhemoglobin 0.4 L 0.5-1.5 % Arterial Blood Methemoglobin 0.7 0.0-1.5 % Frankie Test N/a Blood Gas Total Hemoglobin 13.90 13.5-17.5 g/dL Blood Gas Modality Room air FiO2 % 21.0 Blood Gas Critical Value Read Back Yes Blood Gas Notified Whom Dr. ayala Blood Gas Notified Time [id number] Blood Gas Notified By Tiago william rrt White Blood Count 24.0 H 4.4-10.8 10^3/uL Red Blood Count 4.63 4.5-5.90 10^6/uL Hemoglobin 13.8 13.5-17.5 g/dL Hematocrit 43.6 41.0-53.0 % Mean Corpuscular Volume 94.2 80.0-100.0 fL Mean Corpuscular Hemoglobin 29.9 28.0-32.0 pg Mean Corpuscular Hemoglobin Concent 31.7 L 32.0-36.0 g/dL Red Cell Distribution Width 13.4 11.8-14.3 % Platelet Count 448 140-450 10^3/uL Mean Platelet Volume 8.4 6.9-10.8 fL Neutrophils (%) (Auto) 37.0-80.0 % Lymphocytes (%) (Auto) 10.0-50.0 % Monocytes (%) (Auto) 0.0-12.0 % Basophils (%) (Auto) 0.0-2.0 % Neutrophils # (Auto) 1.6-8.6 10 ^3/uL Lymphocytes # (Auto) 0.4-5.4 10 ^3/uL Monocytes # (Auto) 0-1.3 10 ^3/uL Differential Total Cells Counted 100.0 100 Neutrophils % (Manual) 84 H 37.0-80.0 Band Neutrophils % (Manual) 6 Lymphocytes % (Manual) 2 L 10.0-50.0 Monocytes % (Manual) 8 0-12 Eosinophils % (Manual) 0 0-7 Basophils % (Manual) 0 0.0-2.0 Metamyelocytes % (manual) 0 Myelocytes % (Manual) 0 Promyelocytes % (Manual) 0 Blast Cells % (Manual) 0 Reactive Lymphocytes 0 Platelet Estimate Adequate Red Blood Cell Morphology Normal Sodium Level 139 136-145 mmol/L Potassium Level 3.1 L 3.5-5.1 mmol/L Chloride Level 94 L 98-107 mmol/L Carbon Dioxide Level < 10 *L 20-31 mmol/L Anion Gap 35.02013 H 5-15 Blood Urea Nitrogen 102 *H 9-23 mg/dL Creatinine 5.91 H 0.700-1.30 mg/dL Glomerular Filtration Rate Calc 11 >90 mL/min BUN/Creatinine Ratio 17.3 10.0-20.0 Serum Glucose 1225 *H 74-106 mg/dL Serum Osmolality 456 H 278-298 mOsm/kg Lactic Acid Level 2.4 *H 0.4-2.0 mmol/L Calcium Level 8.6 L 8.7-10.4 mg/dL Phosphorus Level 9.2 H 2.4-5.1 mg/dL Magnesium Level 3.0 H 1.6-2.6 mg/dL Total Bilirubin 0.4 0.2-1.0 mg/dL Aspartate Amino Transferase (AST) 9 L 13-40 U/L Alanine Aminotransferase (ALT) < 9 7-40 U/L Alkaline Phosphatase 112 46-116 U/L Total Protein 7.1 5.7-8.2 g/dL Albumin 3.9 3.2-4.8 g/dL Beta-Hydroxybutyric Acid > 4.500 H < 0.4 mmol/L Plasma/Serum Blood Alcohol 7.2 <10 mg/dL POC Glucose > 600 *H > 600 *H 70-106 mg/dl Microbiology Date/Time Source Procedure Growth Status 12/06/24 23:40 Nose MRSA Screen - Final Complete Assessment KYLER , pre-renal secondary to volume depletion from osmotic diuresis from diabetic ketoacidosis DKA on insulin drip Increase anion gap metabolic acidosis from DKA - resolved Hypernatremia from volume depletion Hypokalemia Hypophosphatemia Sepsis - staphylococcus hemolyticus bacteremia Plan: Good UO 2 L in the last 24 hours continue D5W at 125 cc/h anion gap has closed, but he has nausea, and is not able to tolerate PO intake. Continue Insulin drip which is at very low dose and change to long acting and insulin per sliding scale once he is able to tolerate PO intake. continue cefepime and Vancomycin per ID consult BMP, Mg and phos level 3 times daily while patient is on insulin drip, then daily afterwards Strict I&Os Plan discussed with: Patient DARLENE JIN MD Dec 10, 2024 16:43
--- NOTE | 2024-12-10 17:01 | DVHPN2 ---
Subjective No acute events overnight. Patient's was encouraged to start diet so that we can discontinue the insulin drip. Changes from previous H/P or p: No Changes Objective Vitals Vital Signs Date Time Temp Pulse Resp B/P (MAP) Pulse Ox O2 Delivery O2 Flow Rate FiO2 12/10/24 10:00 94 Nasal Cannula 2.0 12/10/24 10:00 28 12/10/24 08:00 93 14 12/10/24 06:00 100.0 94/55 (68) 212.0 Intake/Output Intake and Output 12/10/24 07:00 Intake Total 3550.5 ml Output Total 1950 ml Balance 1600.5 ml Intake Oral 0 ml IV Total 3250.5 ml Blood Product 300 ml Output Urine Total 1950 ml # Bowel Movements 1 Exam HEENT pupils are reactive Neck is supple CV is S1-S2 regular rate and rhythm Respiratory viral clear GI posterior bowel sound 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 Medications Current Medications Medications Dose Ordered Sig/[place] Route Start Time Stop Time Status Last Admin Dose Admin Insulin Glargine 15 units DAILY SC 12/07/24 10:00 12/10/24 08:47 15 UNITS Albuterol 2.5 mg Q6HPRN PRN NEB 12/06/24 19:45 Cancel Ondansetron HCl 4 mg Q4HP PRN IV 12/06/24 19:45 Hold Acetaminophen 650 mg Q6HP PRN PO 12/06/24 19:45 Nitroglycerin 0.4 mg Q5MINP PRN SL 12/06/24 19:45 Morphine Sulfate 2 mg Q30M PRN IV 12/06/24 19:45 Diagnostic Test (Pha) 1 strip Q90MIN 12/07/24 00:30 12/10/24 15:29 1 STRIP Dextrose 50 ml PRN PRN IV 12/07/24 00:30 Pantoprazole Sodium 40 mg DAILY IV 12/07/24 04:45 12/10/24 08:45 40 MG Vancomycin HCl 0 ml @ 0 mls/hr UD IV 12/07/24 11:45 Cefepime HCl 50 ml @ 12.5 mls/hr Q12HR IV 12/07/24 22:00 12/10/24 08:45 12.5 MLS/HR Dextrose 1,000 ml @ 125 mls/hr Q8H IV 12/08/24 14:45 12/10/24 15:29 125 MLS/HR Acetaminophen 650 mg Q6HP PRN [place] 12/08/24 14:45 12/10/24 04:26 650 MG Insulin Human (Reg)/Sodium Chloride 100 ml @ 0.5 mls/hr Q24H IV 12/08/24 22:45 12/09/24 19:58 2 MLS/HR Phenol/Menthol 1 spr Q2HP PRN [place] 12/09/24 14:30 12/09/24 17:02 1 SPR Vancomycin HCl 250 ml @ 250 mls/hr DAILY@0500,1700 IV 12/09/24 17:17 12/10/24 04:26 250 MLS/HR Laboratory Results Laboratory Tests 12/10/24 04:33 Chemistry Test 12/09/24 18:04 12/10/24 04:33 12/10/24 16:18 Albumin 3.1 g/dL (3.2-4.8) L Calcium Level 7.6 mg/dL (8.7-10.4) L 7.8 mg/dL (8.7-10.4) L Pending Magnesium Level 1.7 mg/dL (1.6-2.6) Phosphorus Level 0.9 mg/dL (2.4-5.1) L Total Protein 5.8 g/dL (5.7-8.2) Coagulation Test 12/10/24 04:33 Prothrombin Time 14.4 sec (9.3-11.8) H Prothrombin Time INR 1.41 (0.9-1.15) H Activated Partial Thromboplast Time 36.4 SEC (24.5-34.5) H LFT Test 12/09/24 18:04 Alanine Aminotransferase (ALT) < 9 U/L (7-40) Alkaline Phosphatase 88 U/L (46-116) Aspartate Amino Transferase (AST) 25 U/L (13-40) Total Bilirubin 0.7 mg/dL (0.2-1.0) Urinalysis Test 12/06/24 15:54 Urine Color Light-yellow (Yellow) Urine Clarity Turbid (Clear) H Urine pH 5.5 (5.0-9.0) Urine Specific [place] 1.019 (1.001-1.035) Urine Protein Trace (Negative) H Urine Ketones 3+ (Negative) H Urine Blood Trace /uL (Negative) H Urine Nitrite Negative (Negative) Urine Bilirubin Negative (Negative) Urine Urobilinogen Normal mg/dL (Negative) Urine Leukocyte Esterase Negative /uL (Negative) Urine RBC <1 /hpf (0 - 3) Urine Microscopic WBC 1 /HPF (0-3) Urine Squamous Epithelial Cells Few /hpf (<5) Urine Bacteria None seen /hpf (None Seen) Urine Hyaline Casts Many /lpf (0 - 2) Urine Mucus Few (None Seen) Urine Glucose 4+ mg/dL (Normal) H Microbiology Microbiology Date/Time Source Procedure Growth Status 12/09/24 14:07 Sputum Gram Stain - Final Resulted 12/09/24 14:07 Sputum Respiratory Culture - Preliminary Resulted 12/08/24 16:09 Blood Blood Culture - Preliminary NO GROWTH AFTER 48 HOURS OF INCUBATION. Resulted 12/06/24 23:40 Nose MRSA Screen - Final Complete Assessment/Plan Assessment/Plan 49-year-old male with a known history of insulin-dependent diabetes mellitus, who initially present with the hospital with generalized weakness lethargic with a high blood sugar found to have 1. Severe diabetic ketoacidosis on insulin drip , metabolic acidosis has a resolved but patient is not eating 2. Leukocytosis secondary to 1. 3. Sepsis secondary to Gram-positive bacteremia, repeat blood cultures are negative, status post MINDI 4. Acute kidney injury suspected secondary to vasomotor nephropathy 5. Hypernatremia -continue insulin drip, IV hydration, diet as tolerated, IV antibiotics -2D echo to rule out vegetations, infectious disease consultation Plan discussed with: Patient My Orders Orders - ALANA LOPEZ MD Procedure Category Date Status Time Vancomycin,Trough LAB 12/10/24 In Process 16:00 Creatinine LAB 12/10/24 In Process 16:00 Vancomycin 1gm/250ml PHA 12/09/24 In Process Kit 17:17 Vancomycin Per MADELYN 12/10/24 In Process Pharmacy Protoc 17:00 *Dr. Nia Alfonso -Da CONS 12/09/24 Transmitted Sh[place] 17:49 Date of Service: Dec 10, 2024 Billing Provider: ALANA LOPEZ MD Common Visit Codes: [id number] INP/OBS CARE(HIGH) ALANA LOPEZ MD Dec 10, 2024 17:00
[2024-12-10 17:13] LABS: Chloride 102 mmol/L (98-107); Potassium 3.5 mmol/L (3.5-5.1); Sodium 143 mmol/L (136-145)
[2024-12-10 17:14] LABS: Anion Gap 9 (5-15)
[2024-12-10 17:18] LABS: Calcium 7.1 mg/dL (8.7-10.4); Carbon Dioxide 32 mmol/L (20-31)
[2024-12-10 17:19] LABS: BUN/Creatinine Ratio 18.4 (10.0-20.0); Blood Urea Nitrogen 16 mg/dL (9-23)
[2024-12-10 17:21] LABS: Glucose 195 mg/dL (74-106)
[2024-12-10] MEDS: VANCOMYCIN 1.25GM/250ML 250 ML IV SCH (20:16)
[2024-12-11] VITALS (73 sets, daily range): BP systolic 89–115; BP diastolic 49–74; PULSE 89–111; RESP 13–41; TEMP 98.1–100.6; O2SAT 88–100
[2024-12-11 06:57] LABS: Anion Gap 9 (5-15); Chloride 99 mmol/L (98-107); Sodium 140 mmol/L (136-145)
[2024-12-11 07:03] LABS: BUN/Creatinine Ratio 14.4 (10.0-20.0); Blood Urea Nitrogen 13 mg/dL (9-23); Magnesium 1.9 mg/dL (1.6-2.6)
[2024-12-11 07:06] LABS: Calcium 7.7 mg/dL (8.7-10.4); Carbon Dioxide 32 mmol/L (20-31); Glucose 170 mg/dL (74-106); Potassium 3.2 mmol/L (3.5-5.1)
--- NOTE | 2024-12-11 07:06 | DVHPN2 ---
Progress Note - Dictate Date Seen: Dec 11, 2024 Medical Necessity Reason Pt with a Central, PICC or Fol: No Subjective no new symptoms vital signs Vital Sign Date Time Temp Pulse Resp B/P (MAP) Pulse Ox O2 Delivery O2 Flow Rate FiO2 12/11/24 06:00 100.0 99 17 109/70 (83) 100 212.0 12/10/24 20:00 Nasal Cannula* 2 28 Total Intake and Output 12/10/24 12/10/24 12/11/24 15:00 23:00 07:00 Intake Total 1018 ml 1809.5 ml 1238.0 ml Output Total 1400 ml 850 ml Balance 1018 ml 409.5 ml 388.0 ml medications Current Medications Medications Dose Ordered Sig/[place] Route Start Time Stop Time Status Last Admin Dose Admin Insulin Glargine 15 units DAILY SC 12/07/24 10:00 12/10/24 08:47 15 UNITS Albuterol 2.5 mg Q6HPRN PRN NEB 12/06/24 19:45 Cancel Ondansetron HCl 4 mg Q4HP PRN IV 12/06/24 19:45 Hold Acetaminophen 650 mg Q6HP PRN PO 12/06/24 19:45 Nitroglycerin 0.4 mg Q5MINP PRN SL 12/06/24 19:45 Morphine Sulfate 2 mg Q30M PRN IV 12/06/24 19:45 Diagnostic Test (Pha) 1 strip Q90MIN 12/07/24 00:30 12/11/24 06:16 1 STRIP Dextrose 50 ml PRN PRN IV 12/07/24 00:30 Pantoprazole Sodium 40 mg DAILY IV 12/07/24 04:45 12/10/24 08:45 40 MG Vancomycin HCl 0 ml @ 0 mls/hr UD IV 12/07/24 11:45 Cefepime HCl 50 ml @ 12.5 mls/hr Q12HR IV 12/07/24 22:00 12/10/24 23:04 12.5 MLS/HR Dextrose 1,000 ml @ 125 mls/hr Q8H IV 12/08/24 14:45 12/11/24 01:27 125 MLS/HR Acetaminophen 650 mg Q6HP PRN [place] 12/08/24 14:45 12/10/24 04:26 650 MG Insulin Human (Reg)/Sodium Chloride 100 ml @ 0.5 mls/hr Q24H IV 12/08/24 22:45 12/10/24 19:42 0.5 MLS/HR Phenol/Menthol 1 spr Q2HP PRN MT 12/09/24 14:30 12/09/24 17:02 1 SPR Vancomycin HCl 250 ml @ 200 mls/hr Q12H IV 12/10/24 20:00 12/10/24 20:16 200 MLS/HR objective Gen: NAD HEENT: NC,AT Lungs: CTA b/l Cardiac: RRR, no murmur Abd: soft, no tenderness Ext: no edema Neuro: no focal deficits laboratory and microbiology Laboratory Tests 12/10/24 04:33 Test 12/11/24 06:04 Range/Units Serum Glucose Pending Assessment/Plan KYLER , pre-renal secondary to volume depletion from osmotic diuresis from diabetic ketoacidosis DKA on insulin drip Increase anion gap metabolic acidosis from DKA - resolved Hypernatremia from volume depletion Hypokalemia Hypophosphatemia Sepsis - staphylococcus hemolyticus bacteremia Plan: Good UO 2 L in the last 24 hours continue D5W at 125 cc/h anion gap has closed, but he has nausea, and is not able to tolerate PO intake. Continue Insulin drip which is at very low dose and change to long acting and insulin per sliding scale once he is able to tolerate PO intake. continue cefepime and Vancomycin per ID consult BMP, Mg and phos level 3 times daily while patient is on insulin drip, then daily afterwards awaiting AM labs, provided direct cell phone to RN to reach me out if any abnormality. Strict I&Os Dietary Evaluation Review Comments: Nutrition Recommendation 1) Advance to [facility] 60gm diet as medically feasible 2) TPN if NPO > 7 days 3) If feeding tube is placed, consider TF Glucerna 1.2Cal @ 65ml/hr x 24hr (goal). Water flush 160ml Q4H TF at goal volume provides 1872 kcal (100% estimated energy needs), 94 gm protein (100% estimated protein needs), and 1896 ml free water (including flush) 4) Monitor NPO status, lab values, weight trend, and I/O Expected Outcomes/Goals: To meet >75% estimated needs Lab values to improve Fu 2-3 days Plan discussed with: Patient, Other Is the fluid challenge complet: Yes Date of Reassessment: Dec 06, 2024 Time of Reassessment: 164 Blood Culture Time: 1528 Time Antibiotics Given: 1548 Systolic BP: 80 Diastolic BP: 42 Blood Pressure Mean: 55 Respiration: 21 Respiratory Effort: Non-Labored, Labored Respiratory Pattern: Regular Oxygen Saturation: 97 Pulse Rate: 88 Pulse Location: Radial Pulse Strength: Normal Pulse Assessment Method: Palpation Pulse Rhythm: Regular Capillary Refill: < 3 seconds Heart Sounds: S1 & S2 Breath sounds: Clear Skin Moisture: Moist Skin Tugor: WNL Skin Color: WNL DARLENE JIN MD Dec 11, 2024 07:06
[2024-12-11] MEDS: ONDANSETRON HCL 4 MG/2 ML VIAL ONE (10:05)
[2024-12-11 12:31] LABS: COVID19 ANTIGEN SOFIA FIA NEGATIVE (NEGATIVE)
[2024-12-11] MEDS: POTASSIUM PHOSPHATE 44 MEQ in D5W 5% 250 ML IV ONE (13:12)
[2024-12-11] MEDS ORDERED: POTASSIUM PHOSPHATE 22 MEQ in SODIUM CHL 0.9% 100 ML IV ONE (14:15)
[2024-12-11] MEDS: ACETAMINOPHEN 325 MG TAB PO PRN (14:40)
[2024-12-11] MEDS ORDERED: DEXTROSE (50%) 50ML SYRG IV PRN (16:45)
--- NOTE | 2024-12-11 17:44 | DVHPN2 ---
Subjective No acute events overnight. Patient is currently tolerating clear liquid diet we will advance to soft diet. 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 Medications Current Medications Medications Dose Ordered Sig/[place] Route Start Time Stop Time Status Last Admin Dose Admin Insulin Glargine 15 units DAILY SC 12/07/24 10:00 12/11/24 09:17 15 UNITS Albuterol 2.5 mg Q6HPRN PRN NEB 12/06/24 19:45 Cancel Ondansetron HCl 4 mg Q4HP PRN IV 12/06/24 19:45 Hold Acetaminophen 650 mg Q6HP PRN PO 12/06/24 19:45 12/11/24 14:40 650 MG Nitroglycerin 0.4 mg Q5MINP PRN SL 12/06/24 19:45 Morphine Sulfate 2 mg Q30M PRN IV 12/06/24 19:45 Pantoprazole Sodium 40 mg DAILY IV 12/07/24 04:45 12/11/24 09:17 40 MG Vancomycin HCl 0 ml @ 0 mls/hr UD IV 12/07/24 11:45 Cefepime HCl 50 ml @ 12.5 mls/hr Q12HR IV 12/07/24 22:00 12/11/24 09:16 12.5 MLS/HR Acetaminophen 650 mg Q6HP PRN [place] 12/08/24 14:45 12/10/24 04:26 650 MG Phenol/Menthol 1 spr Q2HP PRN MT 12/09/24 14:30 12/09/24 17:02 1 SPR Vancomycin HCl 250 ml @ 200 mls/hr Q12H IV 12/10/24 20:00 12/11/24 08:27 200 MLS/HR Diagnostic Test (Pha) 1 strip IQ4HR 12/11/24 20:00 Insulin Human Regular IQ4HR SC 12/11/24 20:00 Dextrose 50 ml UD PRN IV 12/11/24 16:45 Laboratory Results Laboratory Tests 12/10/24 04:33 12/11/24 06:04 Chemistry Test 12/11/24 06:04 Calcium Level 7.7 mg/dL (8.7-10.4) L Magnesium Level 1.9 mg/dL (1.6-2.6) Phosphorus Level 1.7 mg/dL (2.4-5.1) L Urinalysis Test 12/06/24 15:54 Urine Color Light-yellow (Yellow) Urine Clarity Turbid (Clear) H Urine pH 5.5 (5.0-9.0) Urine Specific [place] 1.019 (1.001-1.035) Urine Protein Trace (Negative) H Urine Ketones 3+ (Negative) H Urine Blood Trace /uL (Negative) H Urine Nitrite Negative (Negative) Urine Bilirubin Negative (Negative) Urine Urobilinogen Normal mg/dL (Negative) Urine Leukocyte Esterase Negative /uL (Negative) Urine RBC <1 /hpf (0 - 3) Urine Microscopic WBC 1 /HPF (0-3) Urine Squamous Epithelial Cells Few /hpf (<5) Urine Bacteria None seen /hpf (None Seen) Urine Hyaline Casts Many /lpf (0 - 2) Urine Mucus Few (None Seen) Urine Glucose 4+ mg/dL (Normal) H Microbiology Microbiology Date/Time Source Procedure Growth Status 12/09/24 14:07 Sputum Gram Stain - Final Resulted 12/09/24 14:07 Sputum Respiratory Culture - Preliminary Resulted 12/08/24 16:09 Blood Blood Culture - Preliminary NO GROWTH AFTER 72 HOURS OF INCUBATION. Resulted 12/06/24 23:40 Nose MRSA Screen - Final Complete Assessment/Plan Assessment/Plan 49-year-old male with a known history of insulin-dependent diabetes mellitus, who initially present with the hospital with generalized weakness lethargic with a high blood sugar found to have 1. Severe diabetic ketoacidosis on insulin drip , metabolic acidosis has a resolved but patient is not eating 2. Leukocytosis secondary to 1. 3. Sepsis secondary to Gram-positive bacteremia, repeat blood cultures are negative, status post MINDI 4. Acute kidney injury suspected secondary to vasomotor nephropathy 5. Hypernatremia -replace electrolyte Discontinue insulin drip once patient starts eating, IV hydration, diet as tolerated, IV antibiotics -status post MINDI done Plan discussed with: Patient My Orders Orders - ALANA LOPEZ MD Procedure Category Date Status Time Vancomycin PHA 12/10/24 In Process 1.25gm/250ml 20:00 Vancomycin,Trough LAB 12/12/24 Verified 07:00 Vancomycin Per MADELYN 12/10/24 In Process Pharmacy Protoc 17:45 Creatinine LAB 12/12/24 Verified 07:00 * Wound Consult CONS 12/11/24 Transmitted Consistent DIET 12/11/24 Transmitted Carb(Ccho)Diabetes Dinner Glucose Blood PHA 12/11/24 In Process (Accu-Chek Comfort 20:00 Insulin R (Human) PHA 12/11/24 In Process (Insulin R) 20:00 Dextrose 50% Syringe PHA 12/11/24 In Process 16:45 *Podiatry Consult CONS 12/11/24 Transmitted [place](Dvmg) 17:17 Date of Service: Dec 11, 2024 Billing Provider: ALANA LOPEZ MD Common Visit Codes: [id number] INP/OBS CARE(HIGH) ALANA LOPEZ MD Dec 11, 2024 17:44
[2024-12-11] MEDS: InsuLIN REG 1unit/0.01ml Soln (100units/ml) SC SCH (20:00)
[2024-12-11] MEDS: ACCU-CHEK COMFORT CURVE STRIP VI SCH (20:14)
[2024-12-12] VITALS (22 sets, daily range): BP systolic 68–114; BP diastolic 32–68; PULSE 72–105; RESP 12–27; TEMP 97.5–100.2; O2SAT 84–100
[2024-12-12 08:10] LABS: Alanine Aminotransferase 11 U/L (7-40); Alkaline Phosphatase 92 U/L (46-116); Anion Gap 13 (5-15); BUN/Creatinine Ratio 12.4 (10.0-20.0); Blood Urea Nitrogen 11 mg/dL (9-23); Chloride 100 mmol/L (98-107); Glucose 77 mg/dL (74-106); Sodium 145 mmol/L (136-145)
[2024-12-12 08:12] LABS: Bilirubin, Total 0.6 mg/dL (0.2-1.0)
[2024-12-12 08:14] LABS: Albumin 2.7 g/dL (3.2-4.8); Calcium 7.2 mg/dL (8.7-10.4); Carbon Dioxide 32 mmol/L (20-31); Potassium 2.8 mmol/L (3.5-5.1); Total Protein 5.1 g/dL (5.7-8.2)
[2024-12-12] MEDS: POTASSIUM EFFERVESENT TAB 25 MEQ PO ONE (11:45)
[2024-12-12] MEDS: POTASSIUM CHL 20MEQ/100ML 100 ML IV SCH (11:50)
--- NOTE | 2024-12-12 15:00 | DVHPN2 ---
Progress Note - Dictate Date Seen: Dec 12, 2024 Medical Necessity Reason Pt with a Central, PICC or Fol: No Subjective no new symptoms vital signs Vital Sign Date Time Temp Pulse Resp B/P (MAP) Pulse Ox O2 Delivery O2 Flow Rate FiO2 12/12/24 13:00 102 27 107/62 (77) 99 12/12/24 12:00 98.1 98.1 12/12/24 10:00 Nasal Cannula* 3 32 Total Intake and Output 12/11/24 12/11/24 12/12/24 15:00 23:00 07:00 Intake Total 1695.5 ml 587.5 ml 277.5 ml Output Total 1175 ml 600 ml Balance 1695.5 ml -587.5 ml -322.5 ml medications Current Medications Medications Dose Ordered Sig/[place] Route Start Time Stop Time Status Last Admin Dose Admin Insulin Glargine 15 units DAILY SC 12/07/24 10:00 12/12/24 10:00 15 UNITS Albuterol 2.5 mg Q6HPRN PRN NEB 12/06/24 19:45 Cancel Ondansetron HCl 4 mg Q4HP PRN IV 12/06/24 19:45 Hold Acetaminophen 650 mg Q6HP PRN PO 12/06/24 19:45 12/11/24 14:40 650 MG Nitroglycerin 0.4 mg Q5MINP PRN SL 12/06/24 19:45 Morphine Sulfate 2 mg Q30M PRN IV 12/06/24 19:45 Pantoprazole Sodium 40 mg DAILY IV 12/07/24 04:45 12/12/24 10:59 40 MG Vancomycin HCl 0 ml @ 0 mls/hr UD IV 12/07/24 11:45 Acetaminophen 650 mg Q6HP PRN [place] 12/08/24 14:45 12/10/24 04:26 650 MG Phenol/Menthol 1 spr Q2HP PRN MT 12/09/24 14:30 12/09/24 17:02 1 SPR Vancomycin HCl 250 ml @ 200 mls/hr Q12H IV 12/10/24 20:00 12/12/24 08:00 200 MLS/HR Diagnostic Test (Pha) 1 strip IQ4HR 12/11/24 20:00 12/12/24 12:00 1 STRIP Insulin Human Regular IQ4HR SC 12/11/24 20:00 12/12/24 12:31 3 UNITS Dextrose 50 ml UD PRN IV 12/11/24 16:45 Potassium Chloride 100 ml @ 50 mls/hr Q2H IV 12/12/24 11:15 12/12/24 15:14 12/12/24 13:01 50 MLS/HR Cefepime HCl 50 ml @ 12.5 mls/hr Q8H IV 12/12/24 18:00 objective Gen: NAD HEENT: NC,AT Lungs: CTA b/l Cardiac: RRR, no murmur Abd: soft, no tenderness Ext: no edema Neuro: no focal deficits laboratory and microbiology Laboratory Tests 12/12/24 05:36 12/10/24 04:33 Test 12/12/24 05:36 Range/Units Serum Glucose 77 74-106 mg/dL Assessment/Plan Severe hypokalemia KYLER , pre-renal secondary to volume depletion from osmotic diuresis from diabetic ketoacidosis DKA on insulin drip Increase anion gap metabolic acidosis from DKA - resolved Hypernatremia from volume depletion Hypokalemia Hypophosphatemia Sepsis - staphylococcus hemolyticus bacteremia Plan: supplement KCl continue cefepime and Vancomycin per ID consult BMP, Mg and phos level daily awaiting AM labs, provided direct cell phone to RN to reach me out if any abnormality. Podiatry has been consulted for Lt foot great toe erythema , and numbness Strict I&Os Dietary Evaluation Review Comments: Nutrition Recommendation 1) [facility] diet as medically feasible 2) TPN if NPO > 7 days 3) If feeding tube is placed, consider TF Glucerna 1.2Cal @ 65ml/hr x 24hr (goal). Water flush 160ml Q4H TF at goal volume provides 1872 kcal (100% estimated energy needs), 94 gm protein (100% estimated protein needs), and 1896 ml free water (including flush) 4) Monitor NPO status, lab values, weight trend, and I/O Expected Outcomes/Goals: To meet >75% estimated needs Lab values to improve Fu 2-3 days Plan discussed with: Patient, Other Is the fluid challenge complet: Yes Date of Reassessment: Dec 06, 2024 Time of Reassessment: 1645 Blood Culture Time: 1528 Time Antibiotics Given: 1548 Systolic BP: 80 Diastolic BP: 42 Blood Pressure Mean: 55 Respiration: 21 Respiratory Effort: Non-Labored, Labored Respiratory Pattern: Regular Oxygen Saturation: 97 Pulse Rate: 88 Pulse Location: Radial Pulse Strength: Normal Pulse Assessment Method: Palpation Pulse Rhythm: Regular Capillary Refill: < 3 seconds Heart Sounds: S1 & S2 Breath sounds: Clear Skin Moisture: Moist Skin Tugor: SALVATORE Skin Color: WNDARLENE HERNANDEZ MD Dec 12, 2024 15:00
--- NOTE | 2024-12-12 17:20 | DVHPN2 ---
Subjective No acute events overnight. Patient is off of insulin drip, currently tolerating diet, we will be downgraded to telemetry. Patient denies any complaints. 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 Medications Current Medications Medications Dose Ordered Sig/[place] Route Start Time Stop Time Status Last Admin Dose Admin Insulin Glargine 15 units DAILY SC 12/07/24 10:00 12/12/24 10:00 15 UNITS Albuterol 2.5 mg Q6HPRN PRN NEB 12/06/24 19:45 Cancel Ondansetron HCl 4 mg Q4HP PRN IV 12/06/24 19:45 Hold Acetaminophen 650 mg Q6HP PRN PO 12/06/24 19:45 12/11/24 14:40 650 MG Nitroglycerin 0.4 mg Q5MINP PRN SL 12/06/24 19:45 Morphine Sulfate 2 mg Q30M PRN IV 12/06/24 19:45 Pantoprazole Sodium 40 mg DAILY IV 12/07/24 04:45 12/12/24 10:59 40 MG Vancomycin HCl 0 ml @ 0 mls/hr UD IV 12/07/24 11:45 Acetaminophen 650 mg Q6HP PRN [place] 12/08/24 14:45 12/10/24 04:26 650 MG Phenol/Menthol 1 spr Q2HP PRN [place] 12/09/24 14:30 12/09/24 17:02 1 SPR Diagnostic Test (Pha) 1 strip IQ4HR 12/11/24 20:00 12/12/24 16:11 1 STRIP Insulin Human Regular IQ4HR SC 12/11/24 20:00 12/12/24 12:31 3 UNITS Dextrose 50 ml UD PRN IV 12/11/24 16:45 Cefepime HCl 50 ml @ 12.5 mls/hr Q8H IV 12/12/24 18:00 Laboratory Results Laboratory Tests 12/10/24 04:33 12/12/24 05:36 Chemistry Test 12/12/24 05:36 Albumin 2.7 g/dL (3.2-4.8) L Calcium Level 7.2 mg/dL (8.7-10.4) L Total Protein 5.1 g/dL (5.7-8.2) L LFT Test 12/12/24 05:36 Alanine Aminotransferase (ALT) 11 U/L (7-40) Alkaline Phosphatase 92 U/L (46-116) Aspartate Amino Transferase (AST) 22 U/L (13-40) Total Bilirubin 0.6 mg/dL (0.2-1.0) Urinalysis Test 12/06/24 15:54 Urine Color Light-yellow (Yellow) Urine Clarity Turbid (Clear) H Urine pH 5.5 (5.0-9.0) Urine Specific [place] 1.019 (1.001-1.035) Urine Protein Trace (Negative) H Urine Ketones 3+ (Negative) H Urine Blood Trace /uL (Negative) H Urine Nitrite Negative (Negative) Urine Bilirubin Negative (Negative) Urine Urobilinogen Normal mg/dL (Negative) Urine Leukocyte Esterase Negative /uL (Negative) Urine RBC <1 /hpf (0 - 3) Urine Microscopic WBC 1 /HPF (0-3) Urine Squamous Epithelial Cells Few /hpf (<5) Urine Bacteria None seen /hpf (None Seen) Urine Hyaline Casts Many /lpf (0 - 2) Urine Mucus Few (None Seen) Urine Glucose 4+ mg/dL (Normal) H Microbiology Microbiology Date/Time Source Procedure Growth Status 12/09/24 14:07 Sputum Gram Stain - Final Complete 12/09/24 14:07 Respiratory Culture - Final Staphylococcus aureus Complete 12/08/24 16:09 Blood Blood Culture - Preliminary NO GROWTH AFTER 72 HOURS OF INCUBATION. Resulted 12/06/24 23:40 Nose MRSA Screen - Final Complete Assessment/Plan Assessment/Plan 49-year-old male with a known history of insulin-dependent diabetes mellitus, who initially present with the hospital with generalized weakness lethargic with a high blood sugar found to have 1. Severe diabetic ketoacidosis on insulin drip , metabolic acidosis has a resolved but patient is not eating 2. Leukocytosis secondary to 1. 3. Sepsis secondary to Gram-positive bacteremia, repeat blood cultures are negative, status post MINDI 4. Acute kidney injury suspected secondary to vasomotor nephropathy 5. Hypernatremia -replace electrolyte , continue IV antibiotics, discontinue insulin drip, start insulin Lantus, diet as tolerated -status post MINDI done Plan discussed with: Patient My Orders Orders - ALANA LOPEZ MD Procedure Category Date Status Time Transfer Orders XFER 12/12/24 Transmitted 15:20 Complete Blood Count LAB 12/13/24 Verified 04:00 Vancomycin,Random LAB 12/13/24 Verified 04:00 Date of Service: Dec 12, 2024 Billing Provider: ALANA LOPEZ MD Common Visit Codes: [id number] INP/OBS CARE(HIGH) ALANA LOPEZ MD Dec 12, 2024 17:20
[2024-12-12] MEDS: CEFEPIME 1GM/50ML 50 ML IV SCH (18:00)
[2024-12-13] VITALS (11 sets, daily range): BP systolic 95–111; BP diastolic 58–63; PULSE 72–99; RESP 17–19; TEMP 97.8–99.4; O2SAT 90–96
[2024-12-13 06:49] LABS: Hematocrit 28.0 % (41.0-53.0); Hemoglobin 10.0 g/dL (13.5-17.5); Mean Corpuscular Hemoglobin 29.5 pg (28.0-32.0); Mean Corpuscular Volume 82.6 fL (80.0-100.0); Nucleated Red Blood Cells % 0.1 %
[2024-12-13 06:55] LABS: Anion Gap 15 (5-15); Carbon Dioxide 30 mmol/L (20-31); Chloride 99 mmol/L (98-107); Sodium 144 mmol/L (136-145)
[2024-12-13 07:01] LABS: BUN/Creatinine Ratio 10.4 (10.0-20.0); Blood Urea Nitrogen 10 mg/dL (9-23); Magnesium 1.9 mg/dL (1.6-2.6)
[2024-12-13 07:02] LABS: Calcium 7.5 mg/dL (8.7-10.4); Glucose 160 mg/dL (74-106); Potassium 3.2 mmol/L (3.5-5.1)
[2024-12-13] MEDS: VANCOMYCIN 1.25GM/250ML 250 ML IV SCH (10:11)
--- NOTE | 2024-12-13 11:40 | DVHPN2 ---
Progress Note - Dictate Date Seen: Dec 13, 2024 Medical Necessity Reason Pt with a Central, PICC or Fol: No Subjective on 3 L of oxygen sputum cultures are positive for staphylococcus aureus vital signs Vital Sign Date Time Temp Pulse Resp B/P (MAP) Pulse Ox O2 Delivery O2 Flow Rate FiO2 12/13/24 09:00 99.4 94 18 104/63 (77) 96 99.4 12/12/24 20:00 Nasal Cannula* 3 32 Total Intake and Output 12/12/24 12/12/24 12/13/24 15:00 23:00 07:00 Intake Total 300.0 ml 500 ml 600 ml Output Total 700 ml 400 ml Balance 300.0 ml -200 ml 200 ml medications Current Medications Medications Dose Ordered Sig/[place] Route Start Time Stop Time Status Last Admin Dose Admin Insulin Glargine 15 units DAILY SC 12/07/24 10:00 12/13/24 10:00 15 UNITS Albuterol 2.5 mg Q6HPRN PRN NEB 12/06/24 19:45 Cancel Ondansetron HCl 4 mg Q4HP PRN IV 12/06/24 19:45 Hold Acetaminophen 650 mg Q6HP PRN PO 12/06/24 19:45 12/11/24 14:40 650 MG Nitroglycerin 0.4 mg Q5MINP PRN SL 12/06/24 19:45 Morphine Sulfate 2 mg Q30M PRN IV 12/06/24 19:45 Pantoprazole Sodium 40 mg DAILY IV 12/07/24 04:45 12/13/24 10:11 40 MG Vancomycin HCl 0 ml @ 0 mls/hr UD IV 12/07/24 11:45 Acetaminophen 650 mg Q6HP PRN [place] 12/08/24 14:45 12/10/24 04:26 650 MG Phenol/Menthol 1 spr Q2HP PRN MT 12/09/24 14:30 12/09/24 17:02 1 SPR Diagnostic Test (Pha) 1 strip IQ4HR 12/11/24 20:00 12/13/24 08:18 1 STRIP Insulin Human Regular IQ4HR SC 12/11/24 20:00 12/13/24 08:17 6 UNITS Dextrose 50 ml UD PRN IV 12/11/24 16:45 Vancomycin HCl 250 ml @ 200 mls/hr Q12HR IV 12/13/24 10:00 12/13/24 10:11 200 MLS/HR Cefepime HCl 50 ml @ 12.5 mls/hr Q8H IV 12/13/24 11:30 objective Gen: 49-year-old male i Skin: Warm, dry, normal color and texture, no rash. HEENT: Normocephalic atraumatic, mucous membranes moist and pink. Neck: supple Pulmonary: Clear to auscultation bilaterally. Cardiac: no murmur Abdomen: Soft, nontender, nondistended, bowel sounds present all 4 quadrants, no guarding, no rigidity, no organomegaly. Extremities: No cyanosis, clubbing, no edema Neuro: defer laboratory and microbiology Laboratory Tests 12/13/24 06:13 Test 12/13/24 06:13 Range/Units Serum Glucose 160 H 74-106 mg/dL Problem List Assessment/Plan Sepsis resolving Bacteremia due to staphylococcus hemolyticus MSSA Pneumonia ( staphylococcus aureus) Diabetic ketoacidosis Metabolic encephalopathy Pneumonia leukocytosis KYLER resolving Hypokalemia Plan on floor, on 3L oxygen fever is better reviewed sensitivity dc cefepime IV continue IV Vancomycin, follow vancomycin trough, creatinine reviewed sputum cultures: MSSA repeat blood cx negative follow blood culture, prelim shows Staphylococcus hemolyticus probably from skin Negative for MRSA in recent blood cultures patient had MINDI, pending report MRSA NAAT negative trend CBC daily, WBC is trending down Prognosis gaurded Total time spent 50minutes during the encounter Discussed with treatment team Dietary Evaluation Review Comments: Nutrition Recommendation 1) Advance to CCHO 60gm diet as medically feasible 2) TPN if NPO > 7 days 3) If feeding tube is placed, consider TF Glucerna 1.2Cal @ 65ml/hr x 24hr (goal). Water flush 160ml Q4H TF at goal volume provides 1872 kcal (100% estimated energy needs), 94 gm protein (100% estimated protein needs), and 1896 ml free water (including flush) 4) Monitor NPO status, lab values, weight trend, and I/O Expected Outcomes/Goals: To meet >75% estimated needs Lab values to improve Fu 2-3 days Plan discussed with: Patient, Other Is the fluid challenge complet: Yes Date of Reassessment: Dec 06, 2024 Time of Reassessment: 164 Blood Culture Time: 1528 Time Antibiotics Given: 1548 Systolic BP: 80 Diastolic BP: 42 Blood Pressure Mean: 55 Respiration: 21 Respiratory Effort: Non-Labored, Labored Respiratory Pattern: Regular Oxygen Saturation: 97 Pulse Rate: 88 Pulse Location: Radial Pulse Strength: Normal Pulse Assessment Method: Palpation Pulse Rhythm: Regular Capillary Refill: < 3 seconds Heart Sounds: S1 & S2 Breath sounds: Clear Skin Moisture: Moist Skin Tugor: WNL Skin Color: WNL FELECIA BROWN MD Dec 13, 2024 11:40
[2024-12-13] MEDS: CEFEPIME 1GM/50ML 50 ML IV SCH (12:18)
--- NOTE | 2024-12-13 16:51 | DVHPN2 ---
Subjective No acute events overnight. Patient is off of insulin drip, currently tolerating diet, we will be downgraded to telemetry. Patient denies any complaints. 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 Medications Current Medications Medications Dose Ordered Sig/[place] Route Start Time Stop Time Status Last Admin Dose Admin Insulin Glargine 15 units DAILY SC 12/07/24 10:00 12/13/24 10:00 15 UNITS Albuterol 2.5 mg Q6HPRN PRN NEB 12/06/24 19:45 Cancel Ondansetron HCl 4 mg Q4HP PRN IV 12/06/24 19:45 Hold Acetaminophen 650 mg Q6HP PRN PO 12/06/24 19:45 12/11/24 14:40 650 MG Nitroglycerin 0.4 mg Q5MINP PRN SL 12/06/24 19:45 Morphine Sulfate 2 mg Q30M PRN IV 12/06/24 19:45 Pantoprazole Sodium 40 mg DAILY IV 12/07/24 04:45 12/13/24 10:11 40 MG Vancomycin HCl 0 ml @ 0 mls/hr UD IV 12/07/24 11:45 Acetaminophen 650 mg Q6HP PRN [place] 12/08/24 14:45 12/10/24 04:26 650 MG Phenol/Menthol 1 spr Q2HP PRN MT 12/09/24 14:30 12/09/24 17:02 1 SPR Diagnostic Test (Pha) 1 strip IQ4HR 12/11/24 20:00 12/13/24 16:10 1 STRIP Insulin Human Regular IQ4HR SC 12/11/24 20:00 12/13/24 12:25 3 UNITS Dextrose 50 ml UD PRN IV 12/11/24 16:45 Vancomycin HCl 250 ml @ 200 mls/hr Q12HR IV 12/13/24 10:00 12/13/24 10:11 200 MLS/HR Laboratory Results Laboratory Tests 12/13/24 06:13 Chemistry Test 12/13/24 06:13 Calcium Level 7.5 mg/dL (8.7-10.4) L Magnesium Level 1.9 mg/dL (1.6-2.6) Phosphorus Level 3.1 mg/dL (2.4-5.1) Urinalysis Test 12/06/24 15:54 Urine Color Light-yellow (Yellow) Urine Clarity Turbid (Clear) H Urine pH 5.5 (5.0-9.0) Urine Specific [place] 1.019 (1.001-1.035) Urine Protein Trace (Negative) H Urine Ketones 3+ (Negative) H Urine Blood Trace /uL (Negative) H Urine Nitrite Negative (Negative) Urine Bilirubin Negative (Negative) Urine Urobilinogen Normal mg/dL (Negative) Urine Leukocyte Esterase Negative /uL (Negative) Urine RBC <1 /hpf (0 - 3) Urine Microscopic WBC 1 /HPF (0-3) Urine Squamous Epithelial Cells Few /hpf (<5) Urine Bacteria None seen /hpf (None Seen) Urine Hyaline Casts Many /lpf (0 - 2) Urine Mucus Few (None Seen) Urine Glucose 4+ mg/dL (Normal) H Microbiology Microbiology Date/Time Source Procedure Growth Status 12/09/24 14:07 Sputum Gram Stain - Final Complete 12/09/24 14:07 Respiratory Culture - Final Staphylococcus aureus Complete 12/08/24 16:09 Blood Blood Culture - Final NO GROWTH AFTER 5 DAYS OF INCUBATION. Complete 12/06/24 23:40 Nose MRSA Screen - Final Complete Assessment/Plan Assessment/Plan 49-year-old male with a known history of insulin-dependent diabetes mellitus, who initially present with the hospital with generalized weakness lethargic with a high blood sugar found to have 1. Severe diabetic ketoacidosis, insulin drip stopped, currently long-acting insulin 2. Leukocytosis secondary to 1. 3. Sepsis secondary to Gram-positive bacteremia, repeat blood cultures are negative, status post MINDI negative 4. Acute kidney injury suspected secondary to vasomotor nephropathy 5. Hypernatremia 6. Left great toe cellulitis rule out osteomyelitis -replace electrolyte , continue IV antibiotics, discontinue insulin drip, start insulin Lantus, diet as tolerated -status post MINDI done no evidence of any infective endocarditis. 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
--- NOTE | 2024-12-13 17:21 | DVHPN2 ---
Progress Note - Dictate Date Seen: Dec 13, 2024 Medical Necessity Reason Pt with a Central, PICC or Fol: No Subjective Patient feels thirsty vital signs Vital Sign Date Time Temp Pulse Resp B/P (MAP) Pulse Ox O2 Delivery O2 Flow Rate FiO2 12/13/24 17:00 97.9 91 18 104/61 (75) 90 97.9 12/13/24 10:00 Nasal Cannula* 3 32 Total Intake and Output 12/12/24 12/12/24 12/13/24 15:00 23:00 07:00 Intake Total 300.0 ml 500 ml 600 ml Output Total 700 ml 400 ml Balance 300.0 ml -200 ml 200 ml medications Current Medications Medications Dose Ordered Sig/[place] Route Start Time Stop Time Status Last Admin Dose Admin Insulin Glargine 15 units DAILY SC 12/07/24 10:00 12/13/24 10:00 15 UNITS Albuterol 2.5 mg Q6HPRN PRN NEB 12/06/24 19:45 Cancel Ondansetron HCl 4 mg Q4HP PRN IV 12/06/24 19:45 Hold Acetaminophen 650 mg Q6HP PRN PO 12/06/24 19:45 12/11/24 14:40 650 MG Nitroglycerin 0.4 mg Q5MINP PRN SL 12/06/24 19:45 Morphine Sulfate 2 mg Q30M PRN IV 12/06/24 19:45 Pantoprazole Sodium 40 mg DAILY IV 12/07/24 04:45 12/13/24 10:11 40 MG Vancomycin HCl 0 ml @ 0 mls/hr UD IV 12/07/24 11:45 Acetaminophen 650 mg Q6HP PRN [place] 12/08/24 14:45 12/10/24 04:26 650 MG Phenol/Menthol 1 spr Q2HP PRN MT 12/09/24 14:30 12/09/24 17:02 1 SPR Diagnostic Test (Pha) 1 strip IQ4HR 12/11/24 20:00 12/13/24 16:10 1 STRIP Insulin Human Regular IQ4HR SC 12/11/24 20:00 12/13/24 12:25 3 UNITS Dextrose 50 ml UD PRN IV 12/11/24 16:45 Vancomycin HCl 250 ml @ 200 mls/hr Q12HR IV 12/13/24 10:00 12/13/24 10:11 200 MLS/HR objective HEENT: Dry oral mucosa Pulmonary: Lungs are clear on auscultation bilaterally Cardiovascular S1-S2, no S3 or S4 Abdomen: Bowel sounds positive, soft no rebound tenderness Skin: No rash Neurological: Alert, oriented, no focal weakness laboratory and microbiology Laboratory Tests 12/13/24 06:13 Test 12/13/24 06:13 Range/Units Serum Glucose 160 H 74-106 mg/dL Assessment/Plan Assessment KYLER , pre-renal secondary to volume depletion from osmotic diuresis from diabetic ketoacidosis Hypokalemia DKA on insulin drip Increase anion gap metabolic acidosis from DKA - resolved Hypernatremia from volume depletion Hypokalemia Hypophosphatemia Sepsis - staphylococcus hemolyticus bacteremia Plan: NS drip at 100 mL/hour supplement KCl as needed continue cefepime and Vancomycin per ID consult BMP, Mg and phos level daily Status post I&D by hearing aid dispenser Strict I&Os Dietary Evaluation Review Comments: Nutrition Recommendation 1) Advance to CCHO 60gm diet as medically feasible 2) TPN if NPO > 7 days 3) If feeding tube is placed, consider TF Glucerna 1.2Cal @ 65ml/hr x 24hr (goal). Water flush 160ml Q4H TF at goal volume provides 1872 kcal (100% estimated energy needs), 94 gm protein (100% estimated protein needs), and 1896 ml free water (including flush) 4) Monitor NPO status, lab values, weight trend, and I/O Expected Outcomes/Goals: To meet >75% estimated needs Lab values to improve Fu 2-3 days Plan discussed with: Patient Is the fluid challenge complet: Yes Date of Reassessment: Dec 06, 2024 Time of Reassessment: 164 Blood Culture Time: 1528 Time Antibiotics Given: 1548 Systolic BP: 80 Diastolic BP: 42 Blood Pressure Mean: 55 Respiration: 21 Respiratory Effort: Non-Labored, Labored Respiratory Pattern: Regular Oxygen Saturation: 97 Pulse Rate: 88 Pulse Location: Radial Pulse Strength: Normal Pulse Assessment Method: Palpation Pulse Rhythm: Regular Capillary Refill: < 3 seconds Heart Sounds: S1 & S2 Breath sounds: Clear Skin Moisture: Moist Skin Tugor: WNL Skin Color: WNL MARY ANN TRAMMELL MD Dec 13, 2024 17:21
[2024-12-14] VITALS (9 sets, daily range): BP systolic 100–117; BP diastolic 59–79; PULSE 84–93; RESP 16–19; TEMP 97.8–98.3; O2SAT 88–99
--- NOTE | 2024-12-14 12:32 | DVHPN2 ---
Progress Note - Dictate Date Seen: Dec 14, 2024 Medical Necessity Reason Pt with a Central, PICC or Fol: No Subjective on 3 L of oxygen seen by Podiatry vital signs Vital Sign Date Time Temp Pulse Resp B/P (MAP) Pulse Ox O2 Delivery O2 Flow Rate FiO2 12/14/24 10:00 94 Nasal Cannula 3.0 12/14/24 10:00 32 12/14/24 08:00 85 17 12/14/24 05:00 98.1 100/59 (73) 98.1 Total Intake and Output 12/14/24 12/14/24 12/14/24 02:30 10:30 18:30 Intake Total 250 ml 850 ml 250 ml Output Total 350 ml Balance 250 ml 500 ml 250 ml medications Current Medications Medications Dose Ordered Sig/[place] Route Start Time Stop Time Status Last Admin Dose Admin Insulin Glargine 15 units DAILY SC 12/07/24 10:00 12/14/24 09:35 15 UNITS Albuterol 2.5 mg Q6HPRN PRN NEB 12/06/24 19:45 Cancel Ondansetron HCl 4 mg Q4HP PRN IV 12/06/24 19:45 Hold Acetaminophen 650 mg Q6HP PRN PO 12/06/24 19:45 12/11/24 14:40 650 MG Nitroglycerin 0.4 mg Q5MINP PRN SL 12/06/24 19:45 Morphine Sulfate 2 mg Q30M PRN IV 12/06/24 19:45 Pantoprazole Sodium 40 mg DAILY IV 12/07/24 04:45 12/14/24 09:35 40 MG Vancomycin HCl 0 ml @ 0 mls/hr UD IV 12/07/24 11:45 Acetaminophen 650 mg Q6HP PRN [place] 12/08/24 14:45 12/10/24 04:26 650 MG Phenol/Menthol 1 spr Q2HP PRN MT 12/09/24 14:30 12/09/24 17:02 1 SPR Diagnostic Test (Pha) 1 strip IQ4HR 12/11/24 20:00 12/14/24 12:29 1 STRIP Insulin Human Regular IQ4HR SC 12/11/24 20:00 12/14/24 08:00 2 UNITS Dextrose 50 ml UD PRN IV 12/11/24 16:45 Vancomycin HCl 250 ml @ 200 mls/hr Q12HR IV 12/13/24 10:00 12/14/24 09:35 200 MLS/HR objective Gen: 49-year-old male Skin: Warm, dry, normal color and texture, no rash. HEENT: Normocephalic atraumatic, mucous membranes moist and pink. Neck: supple Pulmonary: Clear to auscultation bilaterally. Cardiac: no murmur Abdomen: Soft, nontender, nondistended, bowel sounds present all 4 quadrants, no guarding, no rigidity, no organomegaly. Extremities: No cyanosis, clubbing, no edema Neuro: defer foot there is a wound on left foot, slightly looks necrotic laboratory and microbiology Laboratory Tests 12/14/24 05:15 12/13/24 06:13 Test 12/13/24 06:13 Range/Units Serum Glucose 160 H 74-106 mg/dL Problem List Assessment/Plan Assessment/Plan left foot wound Sepsis resolving Bacteremia due to staphylococcus hemolyticus MSSA Pneumonia ( staphylococcus aureus) Diabetic ketoacidosis Metabolic encephalopathy Pneumonia leukocytosis KYLER resolving Hypokalemia Plan on floor, on 3L oxygen fever is better reviewed sensitivity dcd cefepime IV continue IV Vancomycin, follow vancomycin trough, creatinine reviewed sputum cultures: MSSA repeat blood cx negative follow blood culture, prelim shows Staphylococcus hemolyticus probably from skin Negative for MRSA in recent blood cultures patient had MINDI, pending report MRSA NAAT negative trend CBC daily, WBC is trending down seen by podiatry, recommended MRI of foot, will follow Prognosis gaurded Total time spent 50minutes during the encounter Discussed with treatment team Dietary Evaluation Review Comments: Nutrition Recommendation 1) Advance to [facility] 60gm diet as medically feasible 2) TPN if NPO > 7 days 3) If feeding tube is placed, consider TF Glucerna 1.2Cal @ 65ml/hr x 24hr (goal). Water flush 160ml Q4H TF at goal volume provides 1872 kcal (100% estimated energy needs), 94 gm protein (100% estimated protein needs), and 1896 ml free water (including flush) 4) Monitor NPO status, lab values, weight trend, and I/O Expected Outcomes/Goals: To meet >75% estimated needs Lab values to improve Fu 2-3 days Plan discussed with: Other Is the fluid challenge complet: Yes Date of Reassessment: Dec 06, 2024 Time of Reassessment: 1645 Blood Culture Time: 1528 Time Antibiotics Given: 1548 Systolic BP: 80 Diastolic BP: 42 Blood Pressure Mean: 55 Respiration: 21 Respiratory Effort: Non-Labored, Labored Respiratory Pattern: Regular Oxygen Saturation: 97 Pulse Rate: 88 Pulse Location: Radial Pulse Strength: Normal Pulse Assessment Method: Palpation Pulse Rhythm: Regular Capillary Refill: < 3 seconds Heart Sounds: S1 & S2 Breath sounds: Clear Skin Moisture: Moist Skin Tugor: WNL Skin Color: WNL FELECIA BROWN MD Dec 14, 2024 12:32
--- NOTE | 2024-12-14 12:35 | DVHCONRES ---
Date Seen: Dec 14, 2024 Reason for Consultation Left foot wound History of Present Illness 49-year-old male presents for evaluation of altered mental status. Patient was found altered by family members. In the feel patient's blood sugar was reading high in the patient was hypotensive. Currently patient is lethargic oriented x2. No slurred speech or unilateral weakness. No complaints of cardiac or respiratory symptoms. Past Medical History See H&P Past Surgical History See H&P Allergies: Coded Allergies: NO KNOWN ALLERGIES (Unverified , 12/08/24) Vital Signs Vital Signs Date Time Temp Pulse Resp B/P (MAP) Pulse Ox O2 Delivery O2 Flow Rate FiO2 12/14/24 10:00 94 Nasal Cannula 3.0 12/14/24 10:00 32 12/14/24 08:00 85 17 12/14/24 05:00 98.1 100/59 (73) 98.1 Physical Exam Dermatological: Skin is dry with mild erythema and some maceration around the wound site No gross deformities noted Mild non-pitting edema present bilaterally Left lateral hallux wound with eschar surrounding erythema fluctuance Vascular: Dorsalis pedis and posterior tibial pulses are 1+ bilaterally Capillary refill is under 2 seconds Skin temperature is warm bilaterally Neurologic: Protective sensation is absent on the plantar forefoot bilaterally Monofilament testing reveals decreased sensation in multiple plantar sites Musculoskeletal: Range of motion at the ankle and MTP joints is within normal limits. Strength is 5/5 in all tested muscle groups. Gait is antalgic due to offloading of the affected limb. Labs/Diagnostic Data Labs Test 12/14/24 08:56 12/14/24 05:15 12/13/24 06:13 12/12/24 05:36 Range/Units POC Glucose 156 H 70-106 mg/dl Creatinine 0.91 0.700-1.30 mg/dL Glomerular Filtration Rate Calc 103 >90 mL/min White Blood Count 13.6 H 4.4-10.8 10^3/uL Red Blood Count 3.39 L 4.5-5.90 10^6/uL Hemoglobin 10.0 L 13.5-17.5 g/dL Hematocrit 28.0 L 41.0-53.0 % Mean Corpuscular Volume 82.6 80.0-100.0 fL Mean Corpuscular Hemoglobin 29.5 28.0-32.0 pg Mean Corpuscular Hemoglobin Concent 35.7 32.0-36.0 g/dL Red Cell Distribution Width 12.1 11.8-14.3 % Platelet Count 391 # 140-450 10^3/uL Mean Platelet Volume 7.2 6.9-10.8 fL Neutrophils (%) (Auto) 78.5 37.0-80.0 % Lymphocytes (%) (Auto) 6.0 L 10.0-50.0 % Monocytes (%) (Auto) 14.4 H 0.0-12.0 % Eosinophils (%) (Auto) 0.9 0.0-7.0 % Basophils (%) (Auto) 0.2 0.0-2.0 % Neutrophils # (Auto) 10.6 H 1.6-8.6 10 ^3/uL Lymphocytes # (Auto) 0.8 0.4-5.4 10 ^3/uL Monocytes # (Auto) 2.0 H 0-1.3 10 ^3/uL Eosinophils # (Auto) 0.1 0-0.8 10 ^3/uL Basophils # (Auto) 0 0-0.2 10 ^3/uL Nucleated Red Blood Cells 0.1 % Sodium Level 144 136-145 mmol/L Potassium Level 3.2 L 3.5-5.1 mmol/L Chloride Level 99 98-107 mmol/L Carbon Dioxide Level 30 20-31 mmol/L Anion Gap 15 5-15 Blood Urea Nitrogen 10 9-23 mg/dL BUN/Creatinine Ratio 10.4 10.0-20.0 Serum Glucose 160 H 74-106 mg/dL Calcium Level 7.5 L 8.7-10.4 mg/dL Phosphorus Level 3.1 2.4-5.1 mg/dL Magnesium Level 1.9 1.6-2.6 mg/dL Random Vancomycin Level 12.7 H 5-10 ug/mL Total Bilirubin 0.6 0.2-1.0 mg/dL Aspartate Amino Transferase (AST) 22 13-40 U/L Alanine Aminotransferase (ALT) 11 7-40 U/L Alkaline Phosphatase 92 46-116 U/L Total Protein 5.1 L 5.7-8.2 g/dL Albumin 2.7 L 3.2-4.8 g/dL Vancomycin Level Trough 20.8 H 5-10 ug/mL Test 12/11/24 11:00 12/10/24 04:33 12/09/24 13:19 12/09/24 05:06 Range/Units SARS-CoV-2 Antigen (Rapid) Negative NEGATIVE Prothrombin Time 14.4 H 9.3-11.8 sec Prothrombin Time INR 1.41 H 0.9-1.15 Activated Partial Thromboplast Time 36.4 H 24.5-34.5 SEC Triglycerides Level 91 < 150 mg/dL Cholesterol Level 81 < 200 mg/dL LDL Cholesterol 36 < 100 mg/dL HDL Cholesterol 31 L 40-59 mg/dL Thyroid Stimulating Hormone (TSH) 0.87 0.55-4.78 uIU/mL Hemoglobin A1c 11.4 H <5.7 % A1C Test 12/06/24 22:15 12/06/24 17:45 12/06/24 15:54 12/06/24 15:50 Range/Units Blood Gas Specimen Type Arterial Blood Gas Sample Site Left radial Blood Gas Patient Temperature 37.0 Arterial Blood Date Drawn [id number] Arterial Blood pH 7.348 L 7.350-7.450 Arterial Blood Partial Pressure CO2 32.8 L 35.0-48.0 mmHg Arterial Blood Partial Pressure O2 81.9 L 83.0-108.0 mmHg Arterial Blood HCO3 17.6 L 21.0-28.0 mmol/L Arterial Blood Oxygen Saturation 95.2 94.0-98.0 % Arterial Blood Base Excess -6.9 L -2.0-3.0 mmol/L Arterial Blood Oxyhemoglobin 93.5 L 94.0-98.0 % Arterial Blood Carboxyhemoglobin 1.1 0.5-1.5 % Arterial Blood Methemoglobin 0.7 0.0-1.5 % Frankie Test Yes Blood Gas Total Hemoglobin 14.20 13.5-17.5 g/dL Blood Gas Modality Room air FiO2 % 21.0 Lactic Acid Level 1.8 0.4-2.0 mmol/L Urine Color Light-yellow Yellow Urine Clarity Turbid H Clear Urine pH 5.5 5.0-9.0 Urine Specific [place] 1.019 1.001-1.035 Urine Protein Trace H Negative Urine Ketones 3+ H Negative Urine Blood Trace H Negative /uL Urine Nitrite Negative Negative Urine Bilirubin Negative Negative Urine Urobilinogen Normal Negative mg/dL Urine Leukocyte Esterase Negative Negative /uL Urine RBC <1 0 - 3 /hpf Urine Microscopic WBC 1 0-3 /HPF Urine Squamous Epithelial Cells Few <5 /hpf Urine Bacteria None seen None Seen /hpf Urine Hyaline Casts Many 0 - 2 /lpf Urine Mucus Few None Seen Urine Glucose 4+ H Normal mg/dL Urine Opiates Screen Neg NEGATIVE Urine Fentanyl Screen Neg NEGATIVE Urine Barbiturates Screen Neg NEGATIVE Urine Phencyclidine Screen Neg NEGATIVE Urine Amphetamines Screen Neg NEGATIVE Urine Benzodiazepines Screen Neg NEGATIVE Urine Cocaine Screen Neg NEGATIVE Urine Cannabinoids Screen Neg NEGATIVE Blood Gas Critical Value Read Back Yes Blood Gas Notified Whom Dr. ayala Blood Gas Notified Time [id number] Blood Gas Notified By Tiago william, public finance specialist Test 12/06/24 15:28 Range/Units Differential Total Cells Counted 100.0 100 Neutrophils % (Manual) 84 H 37.0-80.0 Band Neutrophils % (Manual) 6 Lymphocytes % (Manual) 2 L 10.0-50.0 Monocytes % (Manual) 8 0-12 Eosinophils % (Manual) 0 0-7 Basophils % (Manual) 0 0.0-2.0 Metamyelocytes % (manual) 0 Myelocytes % (Manual) 0 Promyelocytes % (Manual) 0 Blast Cells % (Manual) 0 Reactive Lymphocytes 0 Platelet Estimate Adequate Red Blood Cell Morphology Normal Serum Osmolality 456 H 278-298 mOsm/kg Beta-Hydroxybutyric Acid > 4.500 H < 0.4 mmol/L Plasma/Serum Blood Alcohol 7.2 <10 mg/dL Microbiology Date/Time Source Procedure Growth Status 12/09/24 14:07 Sputum Gram Stain - Final Complete 12/09/24 14:07 Respiratory Culture - Final Staphylococcus aureus Complete 12/08/24 16:09 Blood Blood Culture - Final NO GROWTH AFTER 5 DAYS OF INCUBATION. Complete 12/06/24 23:40 Nose MRSA Screen - Final Complete Problems(with codes): (1) Hypokalemia (2) Acute renal failure (3) Sepsis (4) Pneumonia (5) DKA (diabetic ketoacidosis) Plan/Recommendation ASSESSMENT: Patient is a 49 year old seen on the floor for a worsening ulcer PLAN: - The patients chart was reviewed, clinical findings were discussed with the patient, the etiologies of the conditions were discussed in detail, and a treatment plan was agreed to at this time, with both oral and written instructions provided. - recommend we get an MRI of the left foot - concern for possible osteomyelitis - we will determine next steps after the MRI - possible debridement All questions were answered and concerns addressed to the patient's satisfaction. The patient was given the phone number to the clinic and was told how to make contact with the clinic should any concerns or questions arise. Patient understands that if any questions or concerns arise prior to the next ap pointment, we should be contacted immediately. FOLLOW-UP: Continue to follow while inpatient Plan discussed with: Patient Visit Coding Podiatry Date of Service if different f: Dec 14, 2024 Billing Provider: ROSARIO HAY DPM Podiatry Common Visit Codes: CONSULT ONLY Podiatry Consult Codes: [id number] NEW/EST HI 80 ROSARIO HAY DPM Dec 14, 2024 12:35
--- NOTE | 2024-12-14 16:34 | DVH ---
EXAMINATION: MRI MRI L FOOT WO CONTRAST TECHNIQUE: Multisequence multiplanar MRI images of the left foot were obtained without intravenous co ntrast. HISTORY: r/o OM COMPARISON: None FINDINGS/IMRESSION: Diffuse subcutaneous soft-tissue edema and swelling throughout the foot suspicious for cellulitis. Th is is most severe at the distal 1st digit. Bone marrow edema is present at the middle and distal phalanx of the 1st digit suggestive of osteomye litis (evaluation of the region, however, is limited secondary to MRI artifact and patient positionin g).
--- NOTE | 2024-12-14 18:30 | DVHSR ---
APPROVED REPORT EXAM: Two-dimensional and M-mode echocardiogram with Doppler and color Doppler. Blood Pressure: 110/69 mmHg INDICATION R/O endocarditis RISK FACTORS Height: 73, Weight: 145 DIMENSIONS LVDd4.3 (3.8-5.7cm)LA (2D) (1.9-4.0cm)Aortic Root4.0 (2.0-3.7cm) LVDs2.9 (2.5-4.0cm)LA (MM) (1.9-4.0cm)Aortic Cusp Exc1.9 (1.5-2.0cm) EF (%) 61.0 (55-70%)Rt. Atrium (1.9-4.0cm)Asc. Aorta cm Mitral Valve MitralMitral Stenosis E wave0.71m/sMV Mean GR.mmHg A wave0.85m/sMV Peak GR.mmHg E/A ratio0.82D MVAcm2 DECEL [id number] 1/2 Timems Aortic Valve Aortic ValveAortic Stenosis V10.89m/David Mean GR.3mmHg V21.18m/David Peak GR.6mmHg LVOT Diameter2.3 (1.8-2.4cm)Doppler AVA3.13cm2 Other Information Technically limited study due to patient laying flat and patients breathing. Conclusion Sinus rhythm. Aortic root enlargement. Valves appear to be structurally normal. Left ventricular function is preserved however there is mild anterior hypokinesis. EF is 55% with no rmal RV function. Unremarkable Doppler. No pericardial effusion masses or vegetations.
--- NOTE | 2024-12-14 18:36 | DVHPN2 ---
Subjective No acute events overnight. Patient is off of insulin drip, currently tolerating diet, we will be downgraded to telemetry. Patient denies any complaints. 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 Medications Current Medications Medications Dose Ordered Sig/[place] Route Start Time Stop Time Status Last Admin Dose Admin Insulin Glargine 15 units DAILY SC 12/07/24 10:00 12/14/24 09:35 15 UNITS Albuterol 2.5 mg Q6HPRN PRN NEB 12/06/24 19:45 Cancel Ondansetron HCl 4 mg Q4HP PRN IV 12/06/24 19:45 Hold Acetaminophen 650 mg Q6HP PRN PO 12/06/24 19:45 12/11/24 14:40 650 MG Nitroglycerin 0.4 mg Q5MINP PRN SL 12/06/24 19:45 Morphine Sulfate 2 mg Q30M PRN IV 12/06/24 19:45 Pantoprazole Sodium 40 mg DAILY IV 12/07/24 04:45 12/14/24 09:35 40 MG Vancomycin HCl 0 ml @ 0 mls/hr UD IV 12/07/24 11:45 Acetaminophen 650 mg Q6HP PRN DE 12/08/24 14:45 12/10/24 04:26 650 MG Phenol/Menthol 1 spr Q2HP PRN MT 12/09/24 14:30 12/09/24 17:02 1 SPR Diagnostic Test (Pha) 1 strip IQ4HR 12/11/24 20:00 12/14/24 16:00 1 STRIP Insulin Human Regular IQ4HR SC 12/11/24 20:00 12/14/24 12:32 2 UNITS Dextrose 50 ml UD PRN IV 12/11/24 16:45 Vancomycin HCl 250 ml @ 200 mls/hr Q12HR IV 12/13/24 10:00 12/14/24 09:35 200 MLS/HR Laboratory Results Laboratory Tests 12/13/24 06:13 12/14/24 05:15 Urinalysis Test 12/06/24 15:54 Urine Color Light-yellow (Yellow) Urine Clarity Turbid (Clear) H Urine pH 5.5 (5.0-9.0) Urine Specific [place] 1.019 (1.001-1.035) Urine Protein Trace (Negative) H Urine Ketones 3+ (Negative) H Urine Blood Trace /uL (Negative) H Urine Nitrite Negative (Negative) Urine Bilirubin Negative (Negative) Urine Urobilinogen Normal mg/dL (Negative) Urine Leukocyte Esterase Negative /uL (Negative) Urine RBC <1 /hpf (0 - 3) Urine Microscopic WBC 1 /HPF (0-3) Urine Squamous Epithelial Cells Few /hpf (<5) Urine Bacteria None seen /hpf (None Seen) Urine Hyaline Casts Many /lpf (0 - 2) Urine Mucus Few (None Seen) Urine Glucose 4+ mg/dL (Normal) H Microbiology Microbiology Date/Time Source Procedure Growth Status 12/09/24 14:07 Sputum Gram Stain - Final Complete 12/09/24 14:07 Respiratory Culture - Final Staphylococcus aureus Complete 12/08/24 16:09 Blood Blood Culture - Final NO GROWTH AFTER 5 DAYS OF INCUBATION. Complete 12/06/24 23:40 Nose MRSA Screen - Final Complete Assessment/Plan Assessment/Plan 49-year-old male with a known history of insulin-dependent diabetes mellitus, who initially present with the hospital with generalized weakness lethargic with a high blood sugar found to have 1. Severe diabetic ketoacidosis, insulin drip stopped, currently long-acting insulin 2. Leukocytosis secondary to 1. 3. Sepsis secondary to Gram-positive bacteremia, repeat blood cultures are negative, status post MINDI negative 4. Acute kidney injury suspected secondary to vasomotor nephropathy 5. Hypernatremia 6. Left great toe cellulitis ruled in osteomyelitis of the left great toe -Podiatry Services consultation for possible debridement of the left great toe -patient will need six weeks of IV antibiotics upon discharge. , continue IV antibiotics, continue tight glycemic control -status post MINDI done no evidence of any infective endocarditis. Plan discussed with: Patient Date of Service: Dec 14, 2024 Billing Provider: ALANA LOPEZ MD Common Visit Codes: [id number] INP/OBS CARE(HIGH) ALANA LOPEZ MD Dec 14, 2024 18:36
[2024-12-15] VITALS (8 sets, daily range): BP systolic 99–109; BP diastolic 62–70; PULSE 89–94; RESP 16–22; TEMP 98–98.8; O2SAT 90–94
[2024-12-15 07:03] LABS: Hemoglobin 8.7 g/dL (13.5-17.5); Nucleated Red Blood Cells % 0.0 %
[2024-12-15 07:06] LABS: Hematocrit 23.9 % (41.0-53.0); Mean Corpuscular Hemoglobin 29.6 pg (28.0-32.0); Mean Corpuscular Volume 81.3 fL (80.0-100.0)
--- NOTE | 2024-12-15 10:03 | DVHPN2 ---
Progress Note - Dictate Date Seen: Dec 15, 2024 Medical Necessity Reason Pt with a Central, PICC or Fol: No Subjective on 3 L of oxygen seen by Podiatry vital signs Vital Sign Date Time Temp Pulse Resp B/P (MAP) Pulse Ox O2 Delivery O2 Flow Rate FiO2 12/15/24 09:00 98.1 89 18 109/66 (80) 93 98.1 12/15/24 08:00 Nasal Cannula* 3 32 Total Intake and Output 12/14/24 12/14/24 12/15/24 15:00 23:00 07:00 Intake Total 250 ml 875 ml 550 ml Output Total 450 ml Balance 250 ml 425 ml 550 ml medications Current Medications Medications Dose Ordered Sig/[place] Route Start Time Stop Time Status Last Admin Dose Admin Insulin Glargine 15 units DAILY SC 12/07/24 10:00 12/15/24 09:12 15 UNITS Albuterol 2.5 mg Q6HPRN PRN NEB 12/06/24 19:45 Cancel Ondansetron HCl 4 mg Q4HP PRN IV 12/06/24 19:45 Hold Acetaminophen 650 mg Q6HP PRN PO 12/06/24 19:45 12/11/24 14:40 650 MG Nitroglycerin 0.4 mg Q5MINP PRN SL 12/06/24 19:45 Morphine Sulfate 2 mg Q30M PRN IV 12/06/24 19:45 Pantoprazole Sodium 40 mg DAILY IV 12/07/24 04:45 12/15/24 09:12 40 MG Vancomycin HCl 0 ml @ 0 mls/hr UD IV 12/07/24 11:45 Acetaminophen 650 mg Q6HP PRN LA 12/08/24 14:45 12/10/24 04:26 650 MG Phenol/Menthol 1 spr Q2HP PRN MT 12/09/24 14:30 12/09/24 17:02 1 SPR Diagnostic Test (Pha) 1 strip IQ4HR 12/11/24 20:00 12/15/24 08:51 1 STRIP Insulin Human Regular IQ4HR SC 12/11/24 20:00 12/15/24 09:04 2 UNITS Dextrose 50 ml UD PRN IV 12/11/24 16:45 Vancomycin HCl 250 ml @ 200 mls/hr Q12HR IV 12/13/24 10:00 12/14/24 21:32 200 MLS/HR objective Gen: 49-year-old male Skin: Warm, dry, normal color and texture, no rash. HEENT: Normocephalic atraumatic, mucous membranes moist and pink. Neck: supple Pulmonary: Clear to auscultation bilaterally. Cardiac: no murmur Abdomen: Soft, nontender, nondistended, bowel sounds present all 4 quadrants, no guarding, no rigidity, no organomegaly. Extremities: No cyanosis, clubbing, no edema Neuro: defer foot there is a wound on left foot, slightly looks necrotic laboratory and microbiology Laboratory Tests 12/15/24 05:10 12/13/24 06:13 Test 12/13/24 06:13 Range/Units Serum Glucose 160 H 74-106 mg/dL Problem List Assessment/Plan Assessment/Plan left foot wound; suggestive of osteomyelitis Sepsis resolving Bacteremia due to staphylococcus hemolyticus MSSA Pneumonia ( staphylococcus aureus) Diabetic ketoacidosis Metabolic encephalopathy Pneumonia leukocytosis KYLER resolving Hypokalemia Plan on floor, on 3L oxygen fever is better and WBC is trending up - 14.2 k reviewed sensitivity dcd cefepime IV continue IV Vancomycin, follow vancomycin trough, creatinine reviewed sputum cultures: MSSA repeat blood cx negative follow blood culture, prelim shows Staphylococcus hemolyticus probably from skin Negative for MRSA in recent blood cultures patient had MINDI, No evidence of Infective endocarditis MRSA NAAT negative trend CBC daily seen by podiatry, recommended MRI of foot, possibly suggestive of OSteomyelitis, pending podiatry review Prognosis gaurded Total time spent 50minutes during the encounter Discussed with treatment team Dietary Evaluation Review Comments: Nutrition Recommendation 1) Advance to [facility] 60gm diet as medically feasible 2) TPN if NPO > 7 days 3) If feeding tube is placed, consider TF Glucerna 1.2Cal @ 65ml/hr x 24hr (goal). Water flush 160ml Q4H TF at goal volume provides 1872 kcal (100% estimated energy needs), 94 gm protein (100% estimated protein needs), and 1896 ml free water (including flush) 4) Monitor NPO status, lab values, weight trend, and I/O Expected Outcomes/Goals: To meet >75% estimated needs Lab values to improve Fu 2-3 days Plan discussed with: Other Is the fluid challenge complet: Yes Date of Reassessment: Dec 06, 2024 Time of Reassessment: 1645 Blood Culture Time: 1528 Time Antibiotics Given: 1548 Systolic BP: 80 Diastolic BP: 42 Blood Pressure Mean: 55 Respiration: 21 Respiratory Effort: Non-Labored, Labored Respiratory Pattern: Regular Oxygen Saturation: 97 Pulse Rate: 88 Pulse Location: Radial Pulse Strength: Normal Pulse Assessment Method: Palpation Pulse Rhythm: Regular Capillary Refill: < 3 seconds Heart Sounds: S1 & S2 Breath sounds: Clear Skin Moisture: Moist Skin Tugor: WNL Skin Color: WNL FELECIA BROWN MD Dec 15, 2024 10:03
[2024-12-15] MEDS: VANCOMYCIN 1GM/250ML KIT 250 ML IV SCH (12:03)
--- NOTE | 2024-12-15 16:51 | DVHPN2 ---
Subjective Patient's foot MRI positive for osteomyelitis. Currently scheduled for surgical intervention by Podiatry. 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 Medications Current Medications Medications Dose Ordered Sig/[place] Route Start Time Stop Time Status Last Admin Dose Admin Insulin Glargine 15 units DAILY SC 12/07/24 10:00 12/15/24 09:12 15 UNITS Albuterol 2.5 mg Q6HPRN PRN NEB 12/06/24 19:45 Cancel Ondansetron HCl 4 mg Q4HP PRN IV 12/06/24 19:45 Hold Acetaminophen 650 mg Q6HP PRN PO 12/06/24 19:45 12/11/24 14:40 650 MG Nitroglycerin 0.4 mg Q5MINP PRN SL 12/06/24 19:45 Morphine Sulfate 2 mg Q30M PRN IV 12/06/24 19:45 Pantoprazole Sodium 40 mg DAILY IV 12/07/24 04:45 12/15/24 09:12 40 MG Vancomycin HCl 0 ml @ 0 mls/hr UD IV 12/07/24 11:45 Acetaminophen 650 mg Q6HP PRN AK 12/08/24 14:45 12/10/24 04:26 650 MG Phenol/Menthol 1 spr Q2HP PRN MT 12/09/24 14:30 12/09/24 17:02 1 SPR Diagnostic Test (Pha) 1 strip IQ4HR 12/11/24 20:00 12/15/24 12:03 1 STRIP Insulin Human Regular IQ4HR SC 12/11/24 20:00 12/15/24 12:22 3 UNITS Dextrose 50 ml UD PRN IV 12/11/24 16:45 Vancomycin HCl 250 ml @ 250 mls/hr Q12H IV 12/15/24 11:00 12/15/24 12:03 250 MLS/HR Laboratory Results Laboratory Tests 12/13/24 06:13 12/15/24 05:10 Urinalysis Test 12/06/24 15:54 Urine Color Light-yellow (Yellow) Urine Clarity Turbid (Clear) H Urine pH 5.5 (5.0-9.0) Urine Specific [place] 1.019 (1.001-1.035) Urine Protein Trace (Negative) H Urine Ketones 3+ (Negative) H Urine Blood Trace /uL (Negative) H Urine Nitrite Negative (Negative) Urine Bilirubin Negative (Negative) Urine Urobilinogen Normal mg/dL (Negative) Urine Leukocyte Esterase Negative /uL (Negative) Urine RBC <1 /hpf (0 - 3) Urine Microscopic WBC 1 /HPF (0-3) Urine Squamous Epithelial Cells Few /hpf (<5) Urine Bacteria None seen /hpf (None Seen) Urine Hyaline Casts Many /lpf (0 - 2) Urine Mucus Few (None Seen) Urine Glucose 4+ mg/dL (Normal) H Microbiology Microbiology Date/Time Source Procedure Growth Status 12/09/24 14:07 Sputum Gram Stain - Final Complete 12/09/24 14:07 Respiratory Culture - Final Staphylococcus aureus Complete 12/08/24 16:09 Blood Blood Culture - Final NO GROWTH AFTER 5 DAYS OF INCUBATION. Complete 12/06/24 23:40 Nose MRSA Screen - Final Complete Assessment/Plan Assessment/Plan 49-year-old male with a known history of insulin-dependent diabetes mellitus, who initially present with the hospital with generalized weakness lethargic with a high blood sugar found to have 1. Severe diabetic ketoacidosis, insulin drip stopped, currently long-acting insulin 2. Leukocytosis secondary to 1. 3. Sepsis secondary to Gram-positive bacteremia, repeat blood cultures are negative, status post MINDI negative 4. Acute kidney injury suspected secondary to vasomotor nephropathy 5. Hypernatremia 6. Left great toe cellulitis ruled in osteomyelitis of the left great toe -Podiatry Services consultation for possible debridement of the left great toe -patient will need six weeks of IV antibiotics upon discharge. , continue IV antibiotics, continue tight glycemic control -status post MINDI done no evidence of any infective endocarditis. Plan discussed with: Patient My Orders Orders - ALANA LOPEZ MD Procedure Category Date Status Time Vancomycin 1gm/250ml PHA 12/15/24 In Process Kit 11:00 Vancomycin,Trough LAB 12/16/24 Verified 22:00 Vancomycin Per MADELYN 12/15/24 In Process Pharmacy Protoc 09:43 Creatinine LAB 12/16/24 Verified 04:00 Cleanse Wound With MADELYN 12/15/24 In Process Wound Clean 13:24 Date of Service: Dec 15, 2024 Billing Provider: ALANA LOPEZ MD Common Visit Codes: [id number] INP/OBS CARE(HIGH) ALANA LOPEZ MD Dec 15, 2024 16:51
[2024-12-16] VITALS (9 sets, daily range): BP systolic 96–110; BP diastolic 40–64; PULSE 87–100; RESP 10–20; TEMP 97.6–98.7; O2SAT 90–99
--- NOTE | 2024-12-16 10:45 | DVHPN2 ---
Progress Note - Dictate Date Seen: Dec 16, 2024 Medical Necessity Reason Pt with a Central, PICC or Fol: No Subjective On floor,on 3 L of oxygen seen by Podiatry; plan for I and D today vital signs Vital Sign Date Time Temp Pulse Resp B/P (MAP) Pulse Ox O2 Delivery O2 Flow Rate FiO2 12/16/24 09:00 97.8 87 18 102/58 (73) 91 97.8 12/15/24 20:00 Nasal Cannula* 3 32 Total Intake and Output 12/15/24 12/15/24 12/16/24 15:00 23:00 07:00 Intake Total 250 ml 1000 ml Balance 250 ml 1000 ml medications Current Medications Medications Dose Ordered Sig/[place] Route Start Time Stop Time Status Last Admin Dose Admin Insulin Glargine 15 units DAILY SC 12/07/24 10:00 12/15/24 09:12 15 UNITS Albuterol 2.5 mg Q6HPRN PRN NEB 12/06/24 19:45 Cancel Ondansetron HCl 4 mg Q4HP PRN IV 12/06/24 19:45 Hold Acetaminophen 650 mg Q6HP PRN PO 12/06/24 19:45 12/11/24 14:40 650 MG Nitroglycerin 0.4 mg Q5MINP PRN SL 12/06/24 19:45 Morphine Sulfate 2 mg Q30M PRN IV 12/06/24 19:45 Pantoprazole Sodium 40 mg DAILY IV 12/07/24 04:45 12/15/24 09:12 40 MG Vancomycin HCl 0 ml @ 0 mls/hr UD IV 12/07/24 11:45 Acetaminophen 650 mg Q6HP PRN WI 12/08/24 14:45 12/10/24 04:26 650 MG Phenol/Menthol 1 spr Q2HP PRN MT 12/09/24 14:30 12/09/24 17:02 1 SPR Diagnostic Test (Pha) 1 strip IQ4HR 12/11/24 20:00 12/16/24 04:08 1 STRIP Insulin Human Regular IQ4HR SC 12/11/24 20:00 12/16/24 04:06 2 UNITS Dextrose 50 ml UD PRN IV 12/11/24 16:45 Vancomycin HCl 250 ml @ 250 mls/hr Q12H IV 12/15/24 11:00 12/16/24 00:27 250 MLS/HR objective Gen: 49-year-old male Skin: Warm, dry, normal color and texture, no rash. HEENT: Normocephalic atraumatic, mucous membranes moist and pink. Neck: supple Pulmonary: Clear to auscultation bilaterally. Cardiac: no murmur Abdomen: Soft, nontender, nondistended, bowel sounds present all 4 quadrants, no guarding, no rigidity, no organomegaly. Extremities: No cyanosis, clubbing, no edema Neuro: defer foot there is a wound on left foot, slightly looks necrotic laboratory and microbiology Laboratory Tests 12/16/24 06:25 12/15/24 05:10 12/13/24 06:13 Test 12/13/24 06:13 Range/Units Serum Glucose 160 H 74-106 mg/dL Problem List Assessment/Plan Assessment/Plan left foot wound; suggestive of osteomyelitis Sepsis resolving Bacteremia due to staphylococcus hemolyticus MSSA Pneumonia ( staphylococcus aureus) Diabetic ketoacidosis Metabolic encephalopathy Pneumonia leukocytosis KYLER resolving Hypokalemia Plan today, planned for I and D OR cultures to be sent, off cefepime IV; will add ceftriaxone for now until OR cultures are back continue IV Vancomycin, follow vancomycin trough, creatinine reviewed sputum cultures: MSSA repeat blood cx negative follow blood culture, prelim shows Staphylococcus hemolyticus probably from skin Negative for MRSA in recent blood cultures patient had MINID, No evidence of Infective endocarditis MRSA NAAT negative trend CBC daily seen by podiatry, recommended MRI of foot, possibly suggestive of OSteomyelitis, pending podiatry review Prognosis gaurded Total time spent 50minutes during the encounter Discussed with treatment team Dietary Evaluation Review Comments: Nutrition Recommendation 1) Advance to [facility] 60gm diet as medically feasible 2) TPN if NPO > 7 days 3) If feeding tube is placed, consider TF Glucerna 1.2Cal @ 65ml/hr x 24hr (goal). Water flush 160ml Q4H TF at goal volume provides 1872 kcal (100% estimated energy needs), 94 gm protein (100% estimated protein needs), and 1896 ml free water (including flush) 4) Monitor NPO status, lab values, weight trend, and I/O Expected Outcomes/Goals: To meet >75% estimated needs Lab values to improve Fu 2-3 days Plan discussed with: Other Is the fluid challenge complet: Yes Date of Reassessment: Dec 06, 2024 Time of Reassessment: 1645 Blood Culture Time: 1528 Time Antibiotics Given: 1548 Systolic BP: 80 Diastolic BP: 42 Blood Pressure Mean: 55 Respiration: 21 Respiratory Effort: Non-Labored, Labored Respiratory Pattern: Regular Oxygen Saturation: 97 Pulse Rate: 88 Pulse Location: Radial Pulse Strength: Normal Pulse Assessment Method: Palpation Pulse Rhythm: Regular Capillary Refill: < 3 seconds Heart Sounds: S1 & S2 Breath sounds: Clear Skin Moisture: Moist Skin Tugor: WNL Skin Color: WNL FELECIA BROWN MD Dec 16, 2024 10:44
--- NOTE | 2024-12-16 12:15 | DVHPN2 ---
Subjective 49-year-old male presents for evaluation of altered mental status. Patient was found altered by family members. In the feel patient's blood sugar was reading high in the patient was hypotensive. Currently patient is lethargic oriented x2. No slurred speech or unilateral weakness. No complaints of cardiac or respiratory symptoms. Changes from previous H/P or p: No Changes Objective Vitals Vital Signs Date Time Temp Pulse Resp B/P (MAP) Pulse Ox O2 Delivery O2 Flow Rate FiO2 12/16/24 10:30 96 Nasal Cannula 3.0 12/16/24 10:30 32 12/16/24 09:00 97.8 87 18 102/58 (73) 97.8 Intake/Output Intake and Output 12/16/24 07:00 Intake Total 1250 ml Balance 1250 ml Intake Oral 1000 ml IV Total 250 ml # Voids 3 # Bowel Movements 4 Exam Dermatological: Skin is dry with mild erythema and some maceration around the wound site No gross deformities noted Mild non-pitting edema present bilaterally Left lateral hallux wound with eschar surrounding erythema fluctuance Vascular: Dorsalis pedis and posterior tibial pulses are 1+ bilaterally Capillary refill is under 2 seconds Skin temperature is warm bilaterally Neurologic: Protective sensation is absent on the plantar forefoot bilaterally Monofilament testing reveals decreased sensation in multiple plantar sites Musculoskeletal: Range of motion at the ankle and MTP joints is within normal limits. Strength is 5/5 in all tested muscle groups. Gait is antalgic due to offloading of the affected limb. Medications Current Medications Medications Dose Ordered Sig/[place] Route Start Time Stop Time Status Last Admin Dose Admin Insulin Glargine 15 units DAILY SC 12/07/24 10:00 12/15/24 09:12 15 UNITS Albuterol 2.5 mg Q6HPRN PRN NEB 12/06/24 19:45 Cancel Ondansetron HCl 4 mg Q4HP PRN IV 12/06/24 19:45 Hold Acetaminophen 650 mg Q6HP PRN PO 12/06/24 19:45 12/11/24 14:40 650 MG Nitroglycerin 0.4 mg Q5MINP PRN SL 12/06/24 19:45 Morphine Sulfate 2 mg Q30M PRN IV 12/06/24 19:45 Pantoprazole Sodium 40 mg DAILY IV 12/07/24 04:45 12/15/24 09:12 40 MG Vancomycin HCl 0 ml @ 0 mls/hr UD IV 12/07/24 11:45 Acetaminophen 650 mg Q6HP PRN [place] 12/08/24 14:45 12/10/24 04:26 650 MG Phenol/Menthol 1 spr Q2HP PRN MT 12/09/24 14:30 12/09/24 17:02 1 SPR Diagnostic Test (Pha) 1 strip IQ4HR 12/11/24 20:00 12/16/24 04:08 1 STRIP Insulin Human Regular IQ4HR SC 12/11/24 20:00 12/16/24 04:06 2 UNITS Dextrose 50 ml UD PRN IV 12/11/24 16:45 Vancomycin HCl 250 ml @ 250 mls/hr Q12H IV 12/15/24 11:00 12/16/24 00:27 250 MLS/HR Laboratory Results Laboratory Tests 12/13/24 06:13 12/15/24 05:10 12/16/24 06:25 Urinalysis Test 12/06/24 15:54 Urine Color Light-yellow (Yellow) Urine Clarity Turbid (Clear) H Urine pH 5.5 (5.0-9.0) Urine Specific [place] 1.019 (1.001-1.035) Urine Protein Trace (Negative) H Urine Ketones 3+ (Negative) H Urine Blood Trace /uL (Negative) H Urine Nitrite Negative (Negative) Urine Bilirubin Negative (Negative) Urine Urobilinogen Normal mg/dL (Negative) Urine Leukocyte Esterase Negative /uL (Negative) Urine RBC <1 /hpf (0 - 3) Urine Microscopic WBC 1 /HPF (0-3) Urine Squamous Epithelial Cells Few /hpf (<5) Urine Bacteria None seen /hpf (None Seen) Urine Hyaline Casts Many /lpf (0 - 2) Urine Mucus Few (None Seen) Urine Glucose 4+ mg/dL (Normal) H Microbiology Microbiology Date/Time Source Procedure Growth Status 12/09/24 14:07 Sputum Gram Stain - Final Complete 12/09/24 14:07 Respiratory Culture - Final Staphylococcus aureus Complete 12/08/24 16:09 Blood Blood Culture - Final NO GROWTH AFTER 5 DAYS OF INCUBATION. Complete 12/06/24 23:40 Nose MRSA Screen - Final Complete Assessment/Plan Assessment/Plan ASSESSMENT: Patient is a 49 year old seen on the floor for a worsening ulcer PLAN: - The patients chart was reviewed, clinical findings were discussed with the patient, the etiologies of the conditions were discussed in detail, and a treatment plan was agreed to at this time, with both oral and written instructions provided. - reviewed advanced imaging - discussed plan is to perform an incision and drainage - patient has been NPO since midnight - take him to the OR today - we will get cultures in the OR - can weightbear as tolerated in postoperative shoe All questions were answered and concerns addressed to the patient's satisfaction. The patient was given the phone number to the clinic and was told how to make contact with the clinic should any concerns or questions arise. Patient understands that if any questions or concerns arise prior to the next appointment, we should be contacted immediately. FOLLOW-UP: Continue to follow while inpatient Plan discussed with: Patient My Orders Orders - ROSARIO HAY DPM Procedure Category Date Status Time Npo After Midnight MADELYN 12/15/24 In Process 14:15 Npo (Nothing By DIET 12/16/24 Transmitted Mouth) Diet Breakfast Obtain Consent For: ORDERS 12/15/24 Transmitted 14:15 Problem List: (1) Hypokalemia (2) Acute renal failure (3) Sepsis (4) Pneumonia (5) DKA (diabetic ketoacidosis) Visit Coding Podiatry Date of Service if different f: Dec 16, 2024 Billing Provider: ROSARIO HAY DPM Podiatry Common Visit Codes: [id number] INP/OBS CARE(HIGH) ROSARIO HAY DPM Dec 16, 2024 12:15
[2024-12-16] MEDS ORDERED: ONDANSETRON HCL 4 MG/2 ML VIAL ONE (12:20)
[2024-12-16] MEDS ORDERED: PROPOFOL 10 MG/ML 20 ML IV ONE (12:20)
[2024-12-16] MEDS ORDERED: GLYCOPYRROLATE 0.2 MG/ML 1ML VIAL ONE (12:20)
[2024-12-16] MEDS ORDERED: MIDAZOLAM HCL 2MG/2ML 2ml VIAL (1mg/ml) ONE (12:20)
[2024-12-16] MEDS: BUPIVACAINE 0.5% P/F INJ 10 ML VIAL ONE (12:32)
[2024-12-16] MEDS: ACCU-CHEK COMFORT CURVE STRIP VI ONE (13:00)
--- NOTE | 2024-12-16 13:26 | DVHOP2 ---
Operative Report - 2 Report Details Date: 12/16/24 Preop Diagnosis: 1. Left foot osteomyelitis 2. Left foot abscess 3. Left foot cellulitis 4. Left foot diabetic ulcer Postop Diagnosis: same as preop Surgeon: Rosario Hay MD Anesthesiologist: See anesthesia Anesthesia: Mac Consent: The patient was informed of the risks and benefits of the procedure. These include but are not limited to complications of anesthesia, postoperative infection, incomplete relief of symptoms, recurrence of symptoms, damage to blood vessels, nerves and tendons, deep venous thrombosis, pulmonary embolism and possible need for repeat surgery in the future. Complications: None Estimated Blood Loss: Minimal Fluids: See anesthesia Findings: Consistent with diagnosis Indications for Surgery: Worsening wound Name of Procedure Performed 1. Left hallux I&D to bone (87054) Procedure Details Procedure Details: PRE-PROCEDURE INFORMATION: In the pre-op holding area, the extremity to be operated on was clearly marked and the patient verified correct laterality of the marking. The patient was transferred to the OR table and placed in a supine position. A timeout was performed in which identification of the correct patient, procedure, location, and materials was done. The left foot and leg were prepped and draped in normal sterile fashion. DESCRIPTION OF PROCEDURE: Attention was directed to the left where area of fluctuance was noted. An incision was made over this area and was deepened through blunt dissection. The incision was deepened to the level of abscess and bone. Care was taken to the dissection to avoid any neurovascular and tendinous structures. The incision was deepened to the bone, and the abscess appeared to be purulent fluid consistent with pus. The cortices of the bone was then removed with rongeur an all necrotic tissue. After the abscess was drained, the area was irrigated with 3 L normal saline using cysto tubing. Deep cultures were then obtained from the wound. The area was then inspected and any areas of tracking, especially along the tendons were also drained. The wound was packed with Betadine-soaked gauze. POSTOPERATIVE INFORMATION: The patient tolerated the above noted procedure and anesthesia well and was transferred to the PACU with vital signs stable, and vascular status intact with capillary refill intact to all digits. Deep cultures were taken. Patient will need 6 weeks IV antibiotics. Betadine gauze Gerardo Adarsh on the foot. Change every other day. Weightbearing as tolerated in a postop shoe. Condition Fair Disposition Still a Patient Visit Coding Podiatry Date of Service if different f: Dec 16, 2024 Billing Provider: ROSARIO HAY DPM Podiatry Common Visit Codes: PROCEDURE ONLY ROSARIO HAY DPM Dec 16, 2024 13:26
--- NOTE | 2024-12-16 15:51 | DVHPN2 ---
Subjective Patient denies any symptoms at this time. Reviewed: Care Plan, H&P, Labs, Medications Changes from previous H/P or p: No Changes General: Per HPI Objective Vitals Vital Signs Date Time Temp Pulse Resp B/P (MAP) Pulse Ox O2 Delivery O2 Flow Rate FiO2 12/16/24 13:19 Nasal Cannula 2.0 99 12/16/24 13:16 89 14 117/70 (86) 99 12/16/24 13:00 97.8 97.8 Intake/Output Intake and Output 12/16/24 07:00 Intake Total 1250 ml Balance 1250 ml Intake Oral 1000 ml IV Total 250 ml # Voids 3 # Bowel Movements 4 General Appearance: Alert, Oriented X3, Cooperative, No acute distress HEENT: Atraumatic, PERRLA Lungs: Clear to auscultation, Normal air movement Cardiovascular: Normal S1, Normal S2 Musculoskeletal: Normal sensory function, Normal motor function Skin: Dry, Intact Psych/Mental Status: Mental status NL, Mood NL Medications Current Medications Medications Dose Ordered Sig/[place] Route Start Time Stop Time Status Last Admin Dose Admin Insulin Glargine 15 units DAILY SC 12/07/24 10:00 12/15/24 09:12 15 UNITS Albuterol 2.5 mg Q6HPRN PRN NEB 12/06/24 19:45 Cancel Ondansetron HCl 4 mg Q4HP PRN IV 12/06/24 19:45 Hold Acetaminophen 650 mg Q6HP PRN PO 12/06/24 19:45 12/11/24 14:40 650 MG Nitroglycerin 0.4 mg Q5MINP PRN SL 12/06/24 19:45 Morphine Sulfate 2 mg Q30M PRN IV 12/06/24 19:45 Pantoprazole Sodium 40 mg DAILY IV 12/07/24 04:45 12/15/24 09:12 40 MG Vancomycin HCl 0 ml @ 0 mls/hr UD IV 12/07/24 11:45 Acetaminophen 650 mg Q6HP PRN [place] 12/08/24 14:45 12/10/24 04:26 650 MG Phenol/Menthol 1 spr Q2HP PRN MT 12/09/24 14:30 12/09/24 17:02 1 SPR Diagnostic Test (Pha) 1 strip IQ4HR 12/11/24 20:00 12/16/24 12:22 1 STRIP Insulin Human Regular IQ4HR SC 12/11/24 20:00 12/16/24 12:57 3 UNITS Dextrose 50 ml UD PRN IV 12/11/24 16:45 Vancomycin HCl 250 ml @ 250 mls/hr Q12H IV 12/15/24 11:00 12/16/24 11:00 250 MLS/HR Laboratory Results Laboratory Tests 12/13/24 06:13 12/15/24 05:10 12/16/24 06:25 Urinalysis Test 12/06/24 15:54 Urine Color Light-yellow (Yellow) Urine Clarity Turbid (Clear) H Urine pH 5.5 (5.0-9.0) Urine Specific [place] 1.019 (1.001-1.035) Urine Protein Trace (Negative) H Urine Ketones 3+ (Negative) H Urine Blood Trace /uL (Negative) H Urine Nitrite Negative (Negative) Urine Bilirubin Negative (Negative) Urine Urobilinogen Normal mg/dL (Negative) Urine Leukocyte Esterase Negative /uL (Negative) Urine RBC <1 /hpf (0 - 3) Urine Microscopic WBC 1 /HPF (0-3) Urine Squamous Epithelial Cells Few /hpf (<5) Urine Bacteria None seen /hpf (None Seen) Urine Hyaline Casts Many /lpf (0 - 2) Urine Mucus Few (None Seen) Urine Glucose 4+ mg/dL (Normal) H Microbiology Microbiology Date/Time Source Procedure Growth Status 12/09/24 14:07 Sputum Gram Stain - Final Complete 12/09/24 14:07 Respiratory Culture - Final Staphylococcus aureus Complete 12/08/24 16:09 Blood Blood Culture - Final NO GROWTH AFTER 5 DAYS OF INCUBATION. Complete 12/06/24 23:40 Nose MRSA Screen - Final Complete Labs and/or images reviewed: Labs reviewed by me, Image(s) reviewed by me Assessment/Plan Assessment/Plan Impression: -diabetic ketoacidosis -acute kidney injury, vasomotor nephropathy -sepsis -Osteomyelitis to right great toe -hypokalemia Plan: -patient is status post I and D to right foot -infectious disease consultation for outpatient IV antibiotic therapy management -PICC line placement -continue IV vancomycin -pain management -regular insulin sliding scale -social service consultation for establishment of home health services for wound care and IV antibiotics Total time spent with patient discussing and formulating plan of care: 35 minutes. This medical document was created using an electronic medical record system with [employer] dictation system. Although this document has been carefully reviewed, there may still be some phonetic and typographical errors. These areas are purely typographical due to imperfections of the software programs, and do not reflect any compromise in the patient's medical care. Plan discussed with: Patient, Other (RN) My Orders Orders - LEOLA CAMPA NP Procedure Category Date Status Time Complete Blood Count LAB 12/17/24 Verified 04:00 Basic Metabolic Panel LAB 12/17/24 Verified 04:00 * Picc Line Consult CONS 12/16/24 Transmitted 15:10 Consistent DIET 12/16/24 Transmitted Carb(Ccho)Diabetes Dinner * Assistant Portfolio Manager CONS 12/16/24 Verified Consult Ss Consult To Arrange MADELYN 12/16/24 Verified Home Iv 15:44 Date of Service: Dec 16, 2024 Billing Provider: LEOLA CAMPA NP Common Visit Codes: [id number] INP/OBS CARE(HIGH) LEOLA CAMPA NP Dec 16, 2024 15:51
[2024-12-16 17:10] LABS: INR 1.08 (0.9-1.15); Partial Thromboplastin Time 28.6 SEC (24.5-34.5); Prothrombin Time 11.4 sec (9.3-11.8)
[2024-12-17] VITALS (7 sets, daily range): BP systolic 98–110; BP diastolic 54–64; PULSE 89–107; RESP 17–18; TEMP 98.6–99.5; O2SAT 92–95
[2024-12-17 07:47] LABS: Hemoglobin 9.0 g/dL (13.5-17.5)
[2024-12-17 07:50] LABS: Hematocrit 25.1 % (41.0-53.0); Mean Corpuscular Hemoglobin 29.4 pg (28.0-32.0); Mean Corpuscular Volume 82.1 fL (80.0-100.0); Nucleated Red Blood Cells % 0.1 %
[2024-12-17 08:00] LABS: Sodium 138 mmol/L (136-145)
[2024-12-17 08:01] LABS: Anion Gap 10 (5-15); Calcium 7.6 mg/dL (8.7-10.4); Carbon Dioxide 35 mmol/L (20-31); Chloride 93 mmol/L (98-107); Potassium 3.2 mmol/L (3.5-5.1)
[2024-12-17 08:06] LABS: BUN/Creatinine Ratio 8.2 (10.0-20.0); Blood Urea Nitrogen 13 mg/dL (9-23)
[2024-12-17 08:07] LABS: Glucose 198 mg/dL (74-106)
--- NOTE | 2024-12-17 12:04 | DVHPN2 ---
Progress Note - Dictate Date Seen: Dec 17, 2024 Medical Necessity Reason Pt with a Central, PICC or Fol: No Subjective seen by Podiatry; S/P I&D on 12/16 no new complaints vital signs Vital Sign Date Time Temp Pulse Resp B/P (MAP) Pulse Ox O2 Delivery O2 Flow Rate FiO2 12/17/24 07:30 89 12/17/24 07:30 Nasal Cannula* 3 32 12/17/24 05:00 99.1 17 101/62 (75) 95 99.1 Total Intake and Output 12/16/24 12/16/24 12/17/24 15:00 23:00 07:00 Intake Total 250 ml 460 ml 1030 ml Balance 250 ml 460 ml 1030 ml medications Current Medications Medications Dose Ordered Sig/[place] Route Start Time Stop Time Status Last Admin Dose Admin Insulin Glargine 15 units DAILY SC 12/07/24 10:00 12/17/24 11:39 15 UNITS Albuterol 2.5 mg Q6HPRN PRN NEB 12/06/24 19:45 Cancel Ondansetron HCl 4 mg Q4HP PRN IV 12/06/24 19:45 Hold Acetaminophen 650 mg Q6HP PRN PO 12/06/24 19:45 12/11/24 14:40 650 MG Nitroglycerin 0.4 mg Q5MINP PRN SL 12/06/24 19:45 Morphine Sulfate 2 mg Q30M PRN IV 12/06/24 19:45 Pantoprazole Sodium 40 mg DAILY IV 12/07/24 04:45 12/17/24 09:28 40 MG Vancomycin HCl 0 ml @ 0 mls/hr UD IV 12/07/24 11:45 Acetaminophen 650 mg Q6HP PRN [place] 12/08/24 14:45 12/10/24 04:26 650 MG Phenol/Menthol 1 spr Q2HP PRN MT 12/09/24 14:30 12/09/24 17:02 1 SPR Diagnostic Test (Pha) 1 strip IQ4HR 12/11/24 20:00 12/17/24 11:37 1 STRIP Insulin Human Regular IQ4HR SC 12/11/24 20:00 12/17/24 11:39 6 UNITS Dextrose 50 ml UD PRN IV 12/11/24 16:45 Ceftriaxone Sodium/Dextrose 50 ml @ 50 mls/hr DAILY IV 12/18/24 10:00 objective Gen: 49-year-old male Skin: Warm, dry, normal color and texture, no rash. HEENT: Normocephalic atraumatic, mucous membranes moist and pink. Neck: supple Pulmonary: Clear to auscultation bilaterally. Cardiac: no murmur Abdomen: Soft, nontender, nondistended, bowel sounds present all 4 quadrants, no guarding, no rigidity, no organomegaly. Extremities: No cyanosis, clubbing, no edema Neuro: grossly intact foot s/p I and D of great toe laboratory and microbiology Laboratory Tests 12/17/24 07:11 Test 12/17/24 07:11 Range/Units Serum Glucose 198 H 74-106 mg/dL Problem List Assessment/Plan Assessment/Plan acute osteomyelitis of left foot toe Sepsis resolved Bacteremia due to staphylococcus hemolyticus MSSA Pneumonia ( staphylococcus aureus) Diabetic ketoacidosis Metabolic encephalopathy Pneumonia leukocytosis KYLER resolving Hypokalemia Plan S/P I and D on 12/16 OR cultures results are pending; follow WBC is elevated at 14.7 cont ceftriaxone for now until OR cultures are back continue IV Vancomycin, follow vancomycin trough, creatinine reviewed sputum cultures: MSSA repeat blood cx negative follow blood culture, prelim shows Staphylococcus hemolyticus probably from skin Negative for MRSA in recent blood cultures patient had MINDI, No evidence of Infective endocarditis MRSA NAAT negative trend CBC daily Prognosis gaurded Total time spent 50minutes during the encounter Discussed with treatment team Dietary Evaluation Review Comments: Nutrition Recommendation 1) Advance to [facility] 60gm diet as medically feasible 2) TPN if NPO > 7 days 3) If feeding tube is placed, consider TF Glucerna 1.2Cal @ 65ml/hr x 24hr (goal). Water flush 160ml Q4H TF at goal volume provides 1872 kcal (100% estimated energy needs), 94 gm protein (100% estimated protein needs), and 1896 ml free water (including flush) 4) Monitor NPO status, lab values, weight trend, and I/O Expected Outcomes/Goals: To meet >75% estimated needs Lab values to improve Fu 2-3 days Plan discussed with: Other Is the fluid challenge complet: Yes Date of Reassessment: Dec 06, 2024 Time of Reassessment: 164 Blood Culture Time: 1528 Time Antibiotics Given: 1548 Systolic BP: 80 Diastolic BP: 42 Blood Pressure Mean: 55 Respiration: 21 Respiratory Effort: Non-Labored, Labored Respiratory Pattern: Regular Oxygen Saturation: 97 Pulse Rate: 88 Pulse Location: Radial Pulse Strength: Normal Pulse Assessment Method: Palpation Pulse Rhythm: Regular Capillary Refill: < 3 seconds Heart Sounds: S1 & S2 Breath sounds: Clear Skin Moisture: Moist Skin Tugor: WNL Skin Color: WNL FELECIA BROWN MD Dec 17, 2024 12:04
[2024-12-17] MEDS ORDERED: KETAMINE 50mg/ML 1ml syringe IM ONE (13:02)
--- NOTE | 2024-12-17 14:28 | DVHPN2 ---
Subjective Patient denies any symptoms at this time. Reviewed: Care Plan, H&P, Labs, Medications Changes from previous H/P or p: No Changes General: Per HPI Objective Vitals Vital Signs Date Time Temp Pulse Resp B/P (MAP) Pulse Ox O2 Delivery O2 Flow Rate FiO2 12/17/24 13:00 98.7 90 18 110/54 (72) 94 98.7 12/17/24 07:30 Nasal Cannula* 3 32 Intake/Output Intake and Output 12/17/24 07:00 Intake Total 1740 ml Balance 1740 ml Intake Oral 1490 ml IV Total 250 ml # Voids 3 # Bowel Movements 1 General Appearance: Alert, Oriented X3, Cooperative, No acute distress HEENT: Atraumatic, PERRLA Lungs: Clear to auscultation, Normal air movement Cardiovascular: Normal S1, Normal S2 Musculoskeletal: Normal sensory function, Normal motor function Skin: Dry, Intact Psych/Mental Status: Mental status NL, Mood NL Medications Current Medications Medications Dose Ordered Sig/[place] Route Start Time Stop Time Status Last Admin Dose Admin Insulin Glargine 15 units DAILY SC 12/07/24 10:00 12/17/24 11:39 15 UNITS Albuterol 2.5 mg Q6HPRN PRN NEB 12/06/24 19:45 Cancel Ondansetron HCl 4 mg Q4HP PRN IV 12/06/24 19:45 Hold Acetaminophen 650 mg Q6HP PRN PO 12/06/24 19:45 12/11/24 14:40 650 MG Nitroglycerin 0.4 mg Q5MINP PRN SL 12/06/24 19:45 Morphine Sulfate 2 mg Q30M PRN IV 12/06/24 19:45 Pantoprazole Sodium 40 mg DAILY IV 12/07/24 04:45 12/17/24 09:28 40 MG Vancomycin HCl 0 ml @ 0 mls/hr UD IV 12/07/24 11:45 Acetaminophen 650 mg Q6HP PRN ID 12/08/24 14:45 12/10/24 04:26 650 MG Phenol/Menthol 1 spr Q2HP PRN MT 12/09/24 14:30 12/09/24 17:02 1 SPR Diagnostic Test (Pha) 1 strip IQ4HR 12/11/24 20:00 12/17/24 11:37 1 STRIP Insulin Human Regular IQ4HR SC 12/11/24 20:00 12/17/24 11:39 6 UNITS Dextrose 50 ml UD PRN IV 12/11/24 16:45 Ceftriaxone Sodium/Dextrose 50 ml @ 50 mls/hr DAILY IV 12/18/24 10:00 Laboratory Results Laboratory Tests 12/17/24 07:11 Chemistry Test 12/17/24 07:11 Calcium Level 7.6 mg/dL (8.7-10.4) L Coagulation Test 12/16/24 16:36 Prothrombin Time 11.4 sec (9.3-11.8) Prothrombin Time INR 1.08 (0.9-1.15) Activated Partial Thromboplast Time 28.6 SEC (24.5-34.5) Urinalysis Test 12/06/24 15:54 Urine Color Light-yellow (Yellow) Urine Clarity Turbid (Clear) H Urine pH 5.5 (5.0-9.0) Urine Specific [place] 1.019 (1.001-1.035) Urine Protein Trace (Negative) H Urine Ketones 3+ (Negative) H Urine Blood Trace /uL (Negative) H Urine Nitrite Negative (Negative) Urine Bilirubin Negative (Negative) Urine Urobilinogen Normal mg/dL (Negative) Urine Leukocyte Esterase Negative /uL (Negative) Urine RBC <1 /hpf (0 - 3) Urine Microscopic WBC 1 /HPF (0-3) Urine Squamous Epithelial Cells Few /hpf (<5) Urine Bacteria None seen /hpf (None Seen) Urine Hyaline Casts Many /lpf (0 - 2) Urine Mucus Few (None Seen) Urine Glucose 4+ mg/dL (Normal) H Microbiology Microbiology Date/Time Source Procedure Growth Status 12/16/24 12:34 Foot Left Anaerobic Culture - Preliminary Resulted 12/16/24 12:34 Foot Left Aerobic Culture - Preliminary Resulted 12/09/24 14:07 Sputum Gram Stain - Final Complete 12/09/24 14:07 Respiratory Culture - Final Staphylococcus aureus Complete 12/08/24 16:09 Blood Blood Culture - Final NO GROWTH AFTER 5 DAYS OF INCUBATION. Complete Labs and/or images reviewed: Labs reviewed by me, Image(s) reviewed by me Assessment/Plan Assessment/Plan Impression: -diabetic ketoacidosis -acute kidney injury, vasomotor nephropathy -sepsis -Osteomyelitis to right great toe -hypokalemia Plan: Events: Patient continues to not have PICC line. Unknown when PICC line will be placed. Discharge planning once IV antibiotics and PICC line has been established. -infectious disease consultation for outpatient IV antibiotic therapy management -continue IV vancomycin -pain management -regular insulin sliding scale -social service consultation for establishment of home health services for wound care and IV antibiotics Total time spent with patient discussing and formulating plan of care: 35 minutes. This medical document was created using an electronic medical record system with [employer] dictation system. Although this document has been carefully reviewed, there may still be some phonetic and typographical errors. These areas are purely typographical due to imperfections of the software programs, and do not reflect any compromise in the patient's medical care. Plan discussed with: Patient, Other (RN) My Orders Orders - LEOLA CAMPA NP Procedure Category Date Status Time * Picc Line Consult CONS 12/16/24 Transmitted 15:10 Consistent DIET 12/16/24 Transmitted Carb(Ccho)Diabetes Dinner Ss Consult To Arrange MADELYN 12/16/24 In Process Home Iv 15:44 * Horologist CONS 12/17/24 Transmitted Consult 11:41 Potassium Effervesent PHA 12/17/24 Verified Tab (Klor-Con/Ef) 14:30 Date of Service: Dec 17, 2024 Billing Provider: LEOLA CAMPA NP Common Visit Codes: [id number] INP/OBS CARE(HIGH) LEOLA CAMPA NP Dec 17, 2024 14:28
[2024-12-17] MEDS: POTASSIUM EFFERVESENT TAB 25 MEQ PO ONE (15:50)
[2024-12-17] MEDS ORDERED: IOHEXOL 350 MG/ML 100ML IJ ONE (17:27)
[2024-12-17] MEDS: LIDOCAINE 1% (LOCAL ANESTH.) PF 5ml SDV ID ONE (17:30)
--- NOTE | 2024-12-17 18:31 | DVH ---
Indication: rule out PE Technique: CT axial images of the chest are obtained with intravenous contrast per CT angiogram prot ocol. Coronal and sagittal reformats were obtained. Radiation Dose Information: CTDI volume is 14.8 mGy. Dose-length product is 410.06 mGy*cm Comparison: None FINDINGS: No large defect within the main left and right pulmonary arteries. Trachea patent. No pneumothorax. Diffuse bilateral pulmonary airspace consolidation, nodularity, interlobular septal thickening, tree- in-bud nodularity. Some of the larger nodules include 1.7 cm right upper lobe nodule, left upper lobe nodule measuring 1.3 cm, left upper lobe nodule measuring 1.1 cm, left lower lobe nodule measuring 9 mm, right lower lobe nodule measuring 10 mm. Small bilateral pleural effusions. Small pericardial effusion. Diffuse esophageal wall thickening and esophageal distention. Right hilar lymph node measuring 2 cm. Subcarinal lymph node measuring 1.7 cm. Left hilar lymph node measuring 1.7 cm. Left paratracheal lymph node measuring 1.3 cm. No supraclavicular, axillary lymphadenopathy. No acute osseous abnormality. Soft tissue edema / anasarca. Diffuse gastric wall thickening. IMPRESSION: No evidence for large pulmonary embolism. Diffuse bilateral pulmonary airspace consolidation, nodularity, tree-in-bud nodularity and interlobul ar septal thickening. This could be secondary to combination of infection, metastatic disease/ malign rustam. Correlate with clinical history / oncology. Multiple nodular lesions as described above measuring up to 1.7 cm which could be secondary to infect ion, malignancy / metastatic disease. Diffuse esophageal thickening and distention. Recommend GI consultation for further evaluation evalu ate for esophagitis and other etiologies. Mediastinal and hilar lymphadenopathy which can be secondary to malignancy, infectious/ inflammatory etiologies. Small bilateral pleural effusions. Diffuse gastric wall thickening. Correlate for gastritis, malignancy and other etiologies. Other findings as described
[2024-12-17] MEDS: SODIUM CHLOR 0.9% PF (SALINE LOCK) 10ML VIAL/SYR IV SCH (22:13)
[2024-12-18] VITALS (9 sets, daily range): BP systolic 96–131; BP diastolic 59–87; PULSE 88–99; RESP 15–20; TEMP 97.9–98.6; O2SAT 90–100
[2024-12-18] MEDS: ENOXAPARIN SOD 40 MG/0.4 ML SYRINGE SC SCH (10:23)
--- NOTE | 2024-12-18 12:00 | DVHPN2 ---
Progress Note - Dictate Date Seen: Dec 18, 2024 Medical Necessity Reason Pt with a Central, PICC or Fol: No Subjective s/p Picc line seen by Podiatry; S/P I&D on 12/16 no new complaints vital signs Vital Sign Date Time Temp Pulse Resp B/P (MAP) Pulse Ox O2 Delivery O2 Flow Rate FiO2 12/18/24 09:00 98.3 88 16 111/72 (85) 98 98.3 12/17/24 20:00 Nasal Cannula* 6 44 Total Intake and Output 12/17/24 12/17/24 12/18/24 15:00 23:00 07:00 Intake Total 870 ml 200 ml Balance 870 ml 200 ml medications Current Medications Medications Dose Ordered Sig/[place] Route Start Time Stop Time Status Last Admin Dose Admin Insulin Glargine 15 units DAILY SC 12/07/24 10:00 12/18/24 10:29 15 UNITS Albuterol 2.5 mg Q6HPRN PRN NEB 12/06/24 19:45 Cancel Ondansetron HCl 4 mg Q4HP PRN IV 12/06/24 19:45 Hold Acetaminophen 650 mg Q6HP PRN PO 12/06/24 19:45 12/11/24 14:40 650 MG Nitroglycerin 0.4 mg Q5MINP PRN SL 12/06/24 19:45 Morphine Sulfate 2 mg Q30M PRN IV 12/06/24 19:45 Pantoprazole Sodium 40 mg DAILY IV 12/07/24 04:45 12/17/24 09:28 40 MG Vancomycin HCl 0 ml @ 0 mls/hr UD IV 12/07/24 11:45 Acetaminophen 650 mg Q6HP PRN [place] 12/08/24 14:45 12/10/24 04:26 650 MG Phenol/Menthol 1 spr Q2HP PRN MT 12/09/24 14:30 12/09/24 17:02 1 SPR Diagnostic Test (Pha) 1 strip IQ4HR 12/11/24 20:00 12/18/24 10:48 1 STRIP Insulin Human Regular IQ4HR SC 12/11/24 20:00 12/18/24 10:29 3 UNITS Dextrose 50 ml UD PRN IV 12/11/24 16:45 Ceftriaxone Sodium/Dextrose 50 ml @ 50 mls/hr DAILY IV 12/18/24 10:00 12/18/24 10:24 50 MLS/HR Enoxaparin Sodium 40 mg DAILY SC 12/18/24 10:00 12/18/24 10:23 40 MG Sodium Chloride 10 ml QSHIFT@10,22 IV 12/17/24 22:00 12/18/24 10:24 10 ML objective Gen: 49-year-old male Skin: Warm, dry, normal color and texture, no rash. HEENT: Normocephalic atraumatic, mucous membranes moist and pink. Neck: supple Pulmonary: Clear to auscultation bilaterally. Cardiac: no murmur Abdomen: Soft, nontender, nondistended, bowel sounds present all 4 quadrants, no guarding, no rigidity, no organomegaly. Extremities: No cyanosis, clubbing, no edema Neuro: grossly intact foot s/p I and D of great toe of left foot laboratory and microbiology Laboratory Tests 12/18/24 05:05 12/17/24 07:11 Test 12/17/24 07:11 Range/Units Serum Glucose 198 H 74-106 mg/dL Problem List Assessment/Plan Assessment/Plan acute osteomyelitis of left foot toe group B streptococcal infection Sepsis resolved Bacteremia due to staphylococcus hemolyticus MSSA Pneumonia ( staphylococcus aureus) Diabetic ketoacidosis Metabolic encephalopathy Pneumonia leukocytosis KYLER resolving Hypokalemia Plan S/P I and D on 12/16 OR cultures results show group b streptococcal infection He has Picc line SW consult placed to arrange IV Ceftriaxone 2g daily for 6 weeks with stop date 01/27 for acute osteomyelitis for left foot Weekly labs cbc with diff, cmp, esr. fax to [phone] HE need outpatient ID referral within his network and also podiatry follow up in 1-2 weeks continue wound care cont ceftriaxone for now continue IV Vancomycin,until discharge and then stop. This will complete course for pneumonia and staph hemolyticus since 12/07 and even before. reviewed sputum cultures: MSSA repeat blood cx negative follow blood culture, prelim shows Staphylococcus hemolyticus probably from skin Negative for MRSA in recent blood cultures patient had MINDI, No evidence of Infective endocarditis He is clinically stable however his prognosis of foot depends. recommend good control of diabetes and off pressure bearing. Total time spent 50minutes during the encounter Discussed with treatment team Dietary Evaluation Review Comments: Nutrition Recommendation 1) Advance to [facility] 60gm diet as medically feasible 2) TPN if NPO > 7 days 3) If feeding tube is placed, consider TF Glucerna 1.2Cal @ 65ml/hr x 24hr (goal). Water flush 160ml Q4H TF at goal volume provides 1872 kcal (100% estimated energy needs), 94 gm protein (100% estimated protein needs), and 1896 ml free water (including flush) 4) Monitor NPO status, lab values, weight trend, and I/O Expected Outcomes/Goals: To meet >75% estimated needs Lab values to improve Fu 2-3 days Plan discussed with: Other Is the fluid challenge complet: Yes Date of Reassessment: Dec 06, 2024 Time of Reassessment: 1645 Blood Culture Time: 1528 Time Antibiotics Given: 1548 Systolic BP: 80 Diastolic BP: 42 Blood Pressure Mean: 55 Respiration: 21 Respiratory Effort: Non-Labored, Labored Respiratory Pattern: Regular Oxygen Saturation: 97 Pulse Rate: 88 Pulse Location: Radial Pulse Strength: Normal Pulse Assessment Method: Palpation Pulse Rhythm: Regular Capillary Refill: < 3 seconds Heart Sounds: S1 & S2 Breath sounds: Clear Skin Moisture: Moist Skin Tugor: WNL Skin Color: WNL FELECIA BROWN MD Dec 18, 2024 12:00
[2024-12-18] MEDS: VANCOMYCIN 500mg/100mL 100 ML IV ONE (18:45)
[2024-12-18] MEDS ORDERED: DEXTROSE (50%) 50ML SYRG IV PRN (19:15)
--- NOTE | 2024-12-18 20:05 | DVHPN2 ---
Subjective denies any complaints/asking if can go home today/still on o2 at 10 l/min Reviewed: Care Plan, H&P, Labs, Medications Changes from previous H/P or p: No Changes General: Per HPI Objective Vitals Vital Signs Date Time Temp Pulse Resp B/P (MAP) Pulse Ox O2 Delivery O2 Flow Rate FiO2 12/18/24 17:00 98.6 94 20 97/65 (76) 90 98.6 12/18/24 10:00 Nasal Cannula* 6 44 Intake/Output Intake and Output 12/18/24 07:00 Intake Total 1070 ml Balance 1070 ml Intake Oral 1070 ml # Voids 2 # Bowel Movements 4 General Appearance: Alert, Oriented X3, Cooperative, No acute distress HEENT: Atraumatic, PERRLA Lungs: Clear to auscultation, Normal air movement Cardiovascular: Normal S1, Normal S2 Musculoskeletal: Normal sensory function, Normal motor function Extremities: No edema Neuro: Normal speech, Strength at 5/5 X4 ext, Normal tone, Sensation intact, C ranial nerves 3-12 NL Skin: Dry, Intact Psych/Mental Status: Mental status NL, Mood NL Medications Current Medications Medications Dose Ordered Sig/[place] Route Start Time Stop Time Status Last Admin Dose Admin Insulin Glargine 15 units DAILY SC 12/07/24 10:00 12/18/24 10:29 15 UNITS Albuterol 2.5 mg Q6HPRN PRN NEB 12/06/24 19:45 Cancel Acetaminophen 650 mg Q6HP PRN PO 12/06/24 19:45 12/11/24 14:40 650 MG Pantoprazole Sodium 40 mg DAILY IV 12/07/24 04:45 12/17/24 09:28 40 MG Vancomycin HCl 0 ml @ 0 mls/hr UD IV 12/07/24 11:45 Acetaminophen 650 mg Q6HP PRN [place] 12/08/24 14:45 12/10/24 04:26 650 MG Phenol/Menthol 1 spr Q2HP PRN MT 12/09/24 14:30 12/09/24 17:02 1 SPR Ceftriaxone Sodium/Dextrose 50 ml @ 50 mls/hr DAILY IV 12/18/24 10:00 12/18/24 10:24 50 MLS/HR Enoxaparin Sodium 40 mg DAILY SC 12/18/24 10:00 12/18/24 10:23 40 MG Sodium Chloride 10 ml QSHIFT@10,22 IV 12/17/24 22:00 12/18/24 10:24 10 ML Diagnostic Test (Pha) 1 strip Q6HR 12/19/24 00:00 Insulin Human Regular Q6HR SC 12/19/24 00:00 Dextrose 50 ml UD PRN IV 12/18/24 19:15 Laboratory Results Laboratory Tests 12/17/24 07:11 12/18/24 05:05 Urinalysis Test 12/06/24 15:54 Urine Color Light-yellow (Yellow) Urine Clarity Turbid (Clear) H Urine pH 5.5 (5.0-9.0) Urine Specific [place] 1.019 (1.001-1.035) Urine Protein Trace (Negative) H Urine Ketones 3+ (Negative) H Urine Blood Trace /uL (Negative) H Urine Nitrite Negative (Negative) Urine Bilirubin Negative (Negative) Urine Urobilinogen Normal mg/dL (Negative) Urine Leukocyte Esterase Negative /uL (Negative) Urine RBC <1 /hpf (0 - 3) Urine Microscopic WBC 1 /HPF (0-3) Urine Squamous Epithelial Cells Few /hpf (<5) Urine Bacteria None seen /hpf (None Seen) Urine Hyaline Casts Many /lpf (0 - 2) Urine Mucus Few (None Seen) Urine Glucose 4+ mg/dL (Normal) H Microbiology Microbiology Date/Time Source Procedure Growth Status 12/16/24 12:34 Foot Left Anaerobic Culture - Preliminary Resulted 12/16/24 12:34 Foot Left Aerobic Culture - Preliminary Resulted 12/09/24 14:07 Sputum Gram Stain - Final Complete 12/09/24 14:07 Respiratory Culture - Final Staphylococcus aureus Complete 12/08/24 16:09 Blood Blood Culture - Final NO GROWTH AFTER 5 DAYS OF INCUBATION. Complete Assessment/Plan Assessment/Plan mssapneumonia with respiratory failure osteomyelits left foot//wound cultures pending but blood cultures positive for staph hominis and saprophyticus per id and to continue vanc untill dc but adjust for gfr dm dka resolved no wt bearing left foot nornmal stalin pulmonary nodules- advised will need repeat ct in 3 months if egd is normal esophageal thickening- add ppi/consult gi for egd Plan discussed with: Patient, Other My Orders Orders - MARYANN RUIZ MD Procedure Category Date Status Time Glucose Blood PHA 12/19/24 In Process (Accu-Chek Comfort 00:00 Insulin R (Human) PHA 12/19/24 In Process (Insulin R) 00:00 Dextrose 50% Syringe PHA 12/18/24 In Process 19:15 Date of Service: Dec 08, 2024 Billing Provider: MARYANN RUIZ MD Common Visit Codes: [id number] INP/OBS CARE(HIGH) MARYANN RUIZ MD Dec 18, 2024 20:05
[2024-12-18] MEDS: ACCU-CHEK COMFORT CURVE STRIP VI SCH (23:32)
[2024-12-18] MEDS: InsuLIN REG 1unit/0.01ml Soln (100units/ml) SC SCH (23:37)
[2024-12-19] VITALS (8 sets, daily range): BP systolic 97–123; BP diastolic 67–87; PULSE 68–93; RESP 17–19; TEMP 97.6–98.4; O2SAT 95–100
[2024-12-19 05:54] LABS: Hemoglobin 8.9 g/dL (13.5-17.5); Nucleated Red Blood Cells % 0.0 %
[2024-12-19 05:58] LABS: Hematocrit 24.6 % (41.0-53.0); Mean Corpuscular Hemoglobin 30.2 pg (28.0-32.0); Mean Corpuscular Volume 83.1 fL (80.0-100.0)
[2024-12-19 06:24] LABS: Potassium 3.6 mmol/L (3.5-5.1); Sodium 139 mmol/L (136-145)
[2024-12-19 06:25] LABS: Anion Gap 7 (5-15); Calcium 8.1 mg/dL (8.7-10.4); Carbon Dioxide 37 mmol/L (20-31); Chloride 95 mmol/L (98-107)
[2024-12-19 06:30] LABS: BUN/Creatinine Ratio 8.2 (10.0-20.0); Blood Urea Nitrogen 14 mg/dL (9-23)
[2024-12-19 06:39] LABS: Glucose 119 mg/dL (74-106)
--- NOTE | 2024-12-19 11:33 | DVHPN2 ---
Progress Note - Dictate Date Seen: Dec 19, 2024 Medical Necessity Reason Pt with a Central, PICC or Fol: No Subjective Patient is clinically stable seen by Podiatry; S/P I&D on 12/16 no new complaints vital signs Vital Sign Date Time Temp Pulse Resp B/P (MAP) Pulse Ox O2 Delivery O2 Flow Rate FiO2 12/19/24 05:00 98.3 68 17 102/68 (79) 98 98.3 12/18/24 20:00 Simple Mask* 8 60 Total Intake and Output 12/18/24 12/18/24 12/19/24 14:59 22:59 06:59 Intake Total 50 ml 850 ml Output Total 600 ml Balance 50 ml 250 ml medications Current Medications Medications Dose Ordered Sig/[place] Route Start Time Stop Time Status Last Admin Dose Admin Insulin Glargine 15 units DAILY SC 12/07/24 10:00 12/18/24 10:29 15 UNITS Albuterol 2.5 mg Q6HPRN PRN NEB 12/06/24 19:45 Cancel Acetaminophen 650 mg Q6HP PRN PO 12/06/24 19:45 12/11/24 14:40 650 MG Pantoprazole Sodium 40 mg DAILY IV 12/07/24 04:45 12/17/24 09:28 40 MG Acetaminophen 650 mg Q6HP PRN [place] 12/08/24 14:45 12/10/24 04:26 650 MG Phenol/Menthol 1 spr Q2HP PRN [place] 12/09/24 14:30 12/09/24 17:02 1 SPR Ceftriaxone Sodium/Dextrose 50 ml @ 50 mls/hr DAILY IV 12/18/24 10:00 12/19/24 10:57 50 MLS/HR Enoxaparin Sodium 40 mg DAILY SC 12/18/24 10:00 12/19/24 10:56 40 MG Sodium Chloride 10 ml QSHIFT@,22 IV 12/17/24 22:00 12/19/24 10:24 10 ML Diagnostic Test (Pha) 1 strip Q6HR 12/19/24 00:00 12/19/24 05:53 1 STRIP Insulin Human Regular Q6HR SC 12/19/24 00:00 12/19/24 05:54 2 UNITS Dextrose 50 ml UD PRN IV 12/18/24 19:15 Vancomycin HCl 0 ml @ 0 mls/hr UD IV 12/19/24 11:45 objective Gen: 49-year-old male Skin: Warm, dry, normal color and texture, no rash. HEENT: Normocephalic atraumatic, mucous membranes moist and pink. Neck: supple Pulmonary: Clear to auscultation bilaterally. Cardiac: no murmur Abdomen: Soft, nontender, nondistended, bowel sounds present all 4 quadrants, no guarding, no rigidity, no organomegaly. Extremities: No cyanosis, clubbing, no edema Neuro: grossly intact foot s/p I and D of great toe of left foot laboratory and microbiology Laboratory Tests 12/19/24 05:18 Test 12/19/24 05:18 Range/Units Serum Glucose 119 H 74-106 mg/dL Problem List Assessment/Plan Assessment/Plan acute osteomyelitis of left foot toe group B streptococcal infection Sepsis resolved Bacteremia due to staphylococcus hemolyticus MSSA Pneumonia ( staphylococcus aureus) Diabetic ketoacidosis Metabolic encephalopathy Pneumonia leukocytosis KYLER resolving Hypokalemia esophageal thickening - defer treatment to GI Plan S/P I and D on 12/16 OR cultures results show group b streptococcal infection He has Picc line SW consult placed to arrange IV Ceftriaxone 2g daily for 6 weeks with stop date 01/27 for acute osteomyelitis for left foot Weekly labs cbc with diff, cmp, esr. fax to [phone] HE need outpatient ID referral within his network and also podiatry follow up in 1-2 weeks continue wound care cont ceftriaxone for now continue IV Vancomycin,until discharge and then stop. This will complete course for pneumonia and staph hemolyticus since 12/07 and even before. reviewed sputum cultures: MSSA repeat blood cx negative follow blood culture, prelim shows Staphylococcus hemolyticus probably from skin Negative for MRSA in recent blood cultures patient had MINDI, No evidence of Infective endocarditis He is clinically stable however his prognosis of foot depends. recommend good control of diabetes and off pressure bearing. Total time spent 50minutes during the encounter Discussed with treatment team Dietary Evaluation Review Comments: Nutrition Recommendation 1) [facility] as medically feasible 2) TPN if NPO > 7 days 3) If feeding tube is placed, consider TF Glucerna 1.2Cal @ 65ml/hr x 24hr (goal). Water flush 160ml Q4H TF at goal volume provides 1872 kcal (100% estimated energy needs), 94 gm protein (100% estimated protein needs), and 1896 ml free water (including flush) 4) Monitor NPO status, lab values, weight trend, and I/O Expected Outcomes/Goals: To meet >75% estimated needs Lab values to improve Fu 2-3 days Plan discussed with: Other Is the fluid challenge complet: Yes Date of Reassessment: Dec 06, 2024 Time of Reassessment: 1645 Blood Culture Time: 1528 Time Antibiotics Given: 1548 Systolic BP: 80 Diastolic BP: 42 Blood Pressure Mean: 55 Respiration: 21 Respiratory Effort: Non-Labored, Labored Respiratory Pattern: Regular Oxygen Saturation: 97 Pulse Rate: 88 Pulse Location: Radial Pulse Strength: Normal Pulse Assessment Method: Palpation Pulse Rhythm: Regular Capillary Refill: < 3 seconds Heart Sounds: S1 & S2 Breath sounds: Clear Skin Moisture: Moist Skin Tugor: WNL Skin Color: WNL FELECIA BROWN MD Dec 19, 2024 11:33
[2024-12-19] MEDS ORDERED: VANCOMYCIN PER PHARMACY 0 MG IV SCH (11:45)
--- NOTE | 2024-12-19 15:18 | DVHINCON2 ---
Date of service: Dec 19, 2024 Referring Physician Reason for Consultation Abnormal CAT scan for showing esophageal thickening as well as some gastric thickening diabetes with improving metabolic encephalopathy History of Present Illness This 49-year-old male was found to be unresponsive and came to the hospital confused and was found to have a high blood sugar and possibly encephalopathy. Unable to get much detailed history clearly from the patient because patient does not remember And had a CT angiogram done which showed there was thickening of the esophagus as well as thickening of the gastric wall Oxygen patient has got some problems with early satiety but otherwise and some nausea but no hematemesis or melena Past Medical History Unable to get much detailed except for history of diabetes Past Surgical History None Family History Non contribute Social History Denies any smoking or drug abuse Allergies: Coded Allergies: NO KNOWN ALLERGIES (Unverified , 12/08/24) Current Medications Current Medications Medications (Trade) Dose Ordered Sig/[place] Route PRN Reason Start Time Stop Time Status Last Admin Diagnostic Test (Pha) (Accu-Chek Comfort Curve T) 1 strip Q6HR 12/19/24 00:00 12/19/24 14:43 Insulin Human Regular (InsuLIN R) Q6HR SC 12/19/24 00:00 12/19/24 11:47 Dextrose 50 ml UD PRN IV Blood Sugar LESS THAN 60 12/18/24 19:15 Vancomycin HCl 0 ml @ 0 mls/hr UD IV 12/19/24 11:45 Review of Systems Noncontributory Vital Signs Vital Signs Date Time Temp Pulse Resp B/P (MAP) Pulse Ox O2 Delivery O2 Flow Rate FiO2 12/19/24 13:00 97.6 89 19 114/87 (96) 97 97.6 12/19/24 10:30 Nasal Cannula 8.0 12/19/24 10:30 44 Physical Exam Originally built and nourished male and high-flow oxygen now still slightly confused and weak hypoxic HEENT examination mild pallor lungs clear but on high-flow oxygen Cardio vascular unremarkable Abdomen is soft no tenderness no rigidity no guarding Extremities status post surgery for osteomyelitis Neuro no focal deficits Labs/Diagnostic Data Labs Test 12/19/24 09:50 12/19/24 05:18 12/16/24 21:45 12/16/24 16:36 Range/Units POC Glucose 171 H 70-106 mg/dl White Blood Count 9.2 # 4.4-10.8 10^3/uL Red Blood Count 2.96 L 4.5-5.90 10^6/uL Hemoglobin 8.9 L 13.5-17.5 g/dL Hematocrit 24.6 L 41.0-53.0 % Mean Corpuscular Volume 83.1 80.0-100.0 fL Mean Corpuscular Hemoglobin 30.2 28.0-32.0 pg Mean Corpuscular Hemoglobin Concent 36.3 H 32.0-36.0 g/dL Red Cell Distribution Width 12.2 11.8-14.3 % Platelet Count 494 H 140-450 10^3/uL Mean Platelet Volume 6.8 L 6.9-10.8 fL Neutrophils (%) (Auto) 78.4 37.0-80.0 % Lymphocytes (%) (Auto) 10.1 10.0-50.0 % Monocytes (%) (Auto) 9.0 0.0-12.0 % Eosinophils (%) (Auto) 2.0 0.0-7.0 % Basophils (%) (Auto) 0.5 0.0-2.0 % Neutrophils # (Auto) 7.2 1.6-8.6 10 ^3/uL Lymphocytes # (Auto) 0.9 0.4-5.4 10 ^3/uL Monocytes # (Auto) 0.8 0-1.3 10 ^3/uL Eosinophils # (Auto) 0.2 0-0.8 10 ^3/uL Basophils # (Auto) 0 0-0.2 10 ^3/uL Nucleated Red Blood Cells 0.0 % Sodium Level 139 136-145 mmol/L Potassium Level 3.6 3.5-5.1 mmol/L Chloride Level 95 L 98-107 mmol/L Carbon Dioxide Level 37 H 20-31 mmol/L Anion Gap 7 5-15 Blood Urea Nitrogen 14 9-23 mg/dL Creatinine 1.71 H 0.700-1.30 mg/dL Glomerular Filtration Rate Calc 48 >90 mL/min BUN/Creatinine Ratio 8.2 L 10.0-20.0 Serum Glucose 119 H 74-106 mg/dL Calcium Level 8.1 L 8.7-10.4 mg/dL Random Vancomycin Level 19.4 H 5-10 ug/mL Vancomycin Level Trough 33.3 *H 5-10 ug/mL Prothrombin Time 11.4 9.3-11.8 sec Prothrombin Time INR 1.08 0.9-1.15 Activated Partial Thromboplast Time 28.6 24.5-34.5 SEC Test 12/13/24 06:13 12/12/24 05:36 12/11/24 11:00 12/09/24 13:19 Range/Units Phosphorus Level 3.1 2.4-5.1 mg/dL Magnesium Level 1.9 1.6-2.6 mg/dL Total Bilirubin 0.6 0.2-1.0 mg/dL Aspartate Amino Transferase (AST) 22 13-40 U/L Alanine Aminotransferase (ALT) 11 7-40 U/L Alkaline Phosphatase 92 46-116 U/L Total Protein 5.1 L 5.7-8.2 g/dL Albumin 2.7 L 3.2-4.8 g/dL SARS-CoV-2 Antigen (Rapid) Negative NEGATIVE Triglycerides Level 91 < 150 mg/dL Cholesterol Level 81 < 200 mg/dL LDL Cholesterol 36 < 100 mg/dL HDL Cholesterol 31 L 40-59 mg/dL Thyroid Stimulating Hormone (TSH) 0.87 0.55-4.78 uIU/mL Test 12/09/24 05:06 12/06/24 22:15 12/06/24 17:45 12/06/24 15:54 Range/Units Hemoglobin A1c 11.4 H <5.7 % A1C Blood Gas Specimen Type Arterial Blood Gas Sample Site Left radial Blood Gas Patient Temperature 37.0 Arterial Blood Date Drawn [id number] Arterial Blood pH 7.348 L 7.350-7.450 Arterial Blood Partial Pressure CO2 32.8 L 35.0-48.0 mmHg Arterial Blood Partial Pressure O2 81.9 L 83.0-108.0 mmHg Arterial Blood HCO3 17.6 L 21.0-28.0 mmol/L Arterial Blood Oxygen Saturation 95.2 94.0-98.0 % Arterial Blood Base Excess -6.9 L -2.0-3.0 mmol/L Arterial Blood Oxyhemoglobin 93.5 L 94.0-98.0 % Arterial Blood Carboxyhemoglobin 1.1 0.5-1.5 % Arterial Blood Methemoglobin 0.7 0.0-1.5 % Frankie Test Yes Blood Gas Total Hemoglobin 14.20 13.5-17.5 g/dL Blood Gas Modality Room air FiO2 % 21.0 Lactic Acid Level 1.8 0.4-2.0 mmol/L Urine Color Light-yellow Yellow Urine Clarity Turbid H Clear Urine pH 5.5 5.0-9.0 Urine Specific [place] 1.019 1.001-1.035 Urine Protein Trace H Negative Urine Ketones 3+ H Negative Urine Blood Trace H Negative /uL Urine Nitrite Negative Negative Urine Bilirubin Negative Negative Urine Urobilinogen Normal Negative mg/dL Urine Leukocyte Esterase Negative Negative /uL Urine RBC <1 0 - 3 /hpf Urine Microscopic WBC 1 0-3 /HPF Urine Squamous Epithelial Cells Few <5 /hpf Urine Bacteria None seen None Seen /hpf Urine Hyaline Casts Many 0 - 2 /lpf Urine Mucus Few None Seen Urine Glucose 4+ H Normal mg/dL Urine Opiates Screen Neg NEGATIVE Urine Fentanyl Screen Neg NEGATIVE Urine Barbiturates Screen Neg NEGATIVE Urine Phencyclidine Screen Neg NEGATIVE Urine Amphetamines Screen Neg NEGATIVE Urine Benzodiazepines Screen Neg NEGATIVE Urine Cocaine Screen Neg NEGATIVE Urine Cannabinoids Screen Neg NEGATIVE Test 12/06/24 15:50 12/06/24 15:28 Range/Units Blood Gas Critical Value Read Back Yes Blood Gas Notified Whom Dr. ayala Blood Gas Notified Time [id number] Blood Gas Notified By Tiago william rrt Differential Total Cells Counted 100.0 100 Neutrophils % (Manual) 84 H 37.0-80.0 Band Neutrophils % (Manual) 6 Lymphocytes % (Manual) 2 L 10.0-50.0 Monocytes % (Manual) 8 0-12 Eosinophils % (Manual) 0 0-7 Basophils % (Manual) 0 0.0-2.0 Metamyelocytes % (manual) 0 Myelocytes % (Manual) 0 Promyelocytes % (Manual) 0 Blast Cells % (Manual) 0 Reactive Lymphocytes 0 Platelet Estimate Adequate Red Blood Cell Morphology Normal Serum Osmolality 456 H 278-298 mOsm/kg Beta-Hydroxybutyric Acid > 4.500 H < 0.4 mmol/L Plasma/Serum Blood Alcohol 7.2 <10 mg/dL Microbiology Date/Time Source Procedure Growth Status 12/16/24 12:34 Foot Left Anaerobic Culture - Preliminary Resulted 12/16/24 12:34 Foot Left Aerobic Culture - Preliminary Resulted 12/09/24 14:07 Sputum Gram Stain - Final Complete 12/09/24 14:07 Respiratory Culture - Final Staphylococcus aureus Complete 10/8/25 16:09 Blood Blood Culture - Final NO GROWTH AFTER 5 DAYS OF INCUBATION. Complete Assessment 49-year-old with a history of diabetes diabetic ketosis and metabolic encephalopathy with the abdominal pain hypoxia history of osteomyelitis treated with surgery and antibiotics patient has got had a CT angiogram done because of the hypoxia which showed there was a thickening of the esophagus as well as some thickening of the gastric walk this was done where which was only a CT angiogram not a CT of the esophagus stomach. CT was done without contrast Impression esophagitis possibly and gastric wall thickening and abnormal CAT with the abnormal CT angiogram diabetes possible diabetic gastric bezoar or dialysis gastritis or other malignancy or other pathology can not be excluded including candidiasis or other infections also Plan/Recommendation We will recommend see CT of the esophagus and stomach with oral contrast as soon as patient is slightly better and able to tolerate less hypoxic depending upon that may need further workup including EGD evaluation Thank you Dr. Solorzano Plan discussed with: Patient MINA SOLORZANO MD Dec 19, 2024 15:18
--- NOTE | 2024-12-19 17:48 | DVHPN2 ---
Subjective denies any complaints/asking if can go home today/still on o2 at 10 l/min Reviewed: Care Plan, H&P, Labs, Medications Changes from previous H/P or p: No Changes General: Per HPI Objective Vitals Vital Signs Date Time Temp Pulse Resp B/P (MAP) Pulse Ox O2 Delivery O2 Flow Rate FiO2 12/19/24 17:00 97.9 93 18 112/85 (94) 95 97.9 12/19/24 10:30 Nasal Cannula 8.0 12/19/24 10:30 44 Intake/Output Intake and Output 12/19/24 07:00 Intake Total 900 ml Output Total 600 ml Balance 300 ml Intake Oral 850 ml IV Total 50 ml Output Urine Total 600 ml # Bowel Movements 2 General Appearance: Alert, Oriented X3, Cooperative, No acute distress HEENT: Atraumatic, PERRLA Lungs: Clear to auscultation, Normal air movement Cardiovascular: Normal S1, Normal S2 Musculoskeletal: Normal sensory function, Normal motor function Extremities: No edema, Other (dressing in place on left foot/no drainage) Neuro: Normal speech, Strength at 5/5 X4 ext, Normal tone, Sensation intact, C ranial nerves 3-12 NL Skin: Dry, Intact Psych/Mental Status: Mental status NL, Mood NL Medications Current Medications Medications Dose Ordered Sig/[place] Route Start Time Stop Time Status Last Admin Dose Admin Insulin Glargine 15 units DAILY SC 12/07/24 10:00 12/19/24 11:46 15 UNITS Albuterol 2.5 mg Q6HPRN PRN NEB 12/06/24 19:45 Cancel Acetaminophen 650 mg Q6HP PRN PO 12/06/24 19:45 12/11/24 14:40 650 MG Pantoprazole Sodium 40 mg DAILY IV 12/07/24 04:45 12/17/24 09:28 40 MG Acetaminophen 650 mg Q6HP PRN VA 12/08/24 14:45 12/10/24 04:26 650 MG Phenol/Menthol 1 spr Q2HP PRN MT 12/09/24 14:30 12/09/24 17:02 1 SPR Ceftriaxone Sodium/Dextrose 50 ml @ 50 mls/hr DAILY IV 12/18/24 10:00 12/19/24 10:57 50 MLS/HR Enoxaparin Sodium 40 mg DAILY SC 12/18/24 10:00 12/19/24 10:56 40 MG Sodium Chloride 10 ml QSHIFT@10,22 IV 12/17/24 22:00 12/19/24 10:24 10 ML Diagnostic Test (Pha) 1 strip Q6HR 12/19/24 00:00 12/19/24 14:43 1 STRIP Insulin Human Regular Q6HR SC 12/19/24 00:00 12/19/24 11:47 3 UNITS Dextrose 50 ml UD PRN IV 12/18/24 19:15 Vancomycin HCl 0 ml @ 0 mls/hr UD IV 12/19/24 11:45 Laboratory Results Laboratory Tests 12/19/24 05:18 Chemistry Test 12/19/24 05:18 Calcium Level 8.1 mg/dL (8.7-10.4) L Urinalysis Test 12/06/24 15:54 Urine Color Light-yellow (Yellow) Urine Clarity Turbid (Clear) H Urine pH 5.5 (5.0-9.0) Urine Specific [place] 1.019 (1.001-1.035) Urine Protein Trace (Negative) H Urine Ketones 3+ (Negative) H Urine Blood Trace /uL (Negative) H Urine Nitrite Negative (Negative) Urine Bilirubin Negative (Negative) Urine Urobilinogen Normal mg/dL (Negative) Urine Leukocyte Esterase Negative /uL (Negative) Urine RBC <1 /hpf (0 - 3) Urine Microscopic WBC 1 /HPF (0-3) Urine Squamous Epithelial Cells Few /hpf (<5) Urine Bacteria None seen /hpf (None Seen) Urine Hyaline Casts Many /lpf (0 - 2) Urine Mucus Few (None Seen) Urine Glucose 4+ mg/dL (Normal) H Microbiology Microbiology Date/Time Source Procedure Growth Status 12/16/24 12:34 Foot Left Anaerobic Culture - Preliminary Resulted 12/16/24 12:34 Foot Left Aerobic Culture - Preliminary Resulted 12/09/24 14:07 Sputum Gram Stain - Final Complete 12/09/24 14:07 Respiratory Culture - Final Staphylococcus aureus Complete 12/08/24 16:09 Blood Blood Culture - Final NO GROWTH AFTER 5 DAYS OF INCUBATION. Complete Assessment/Plan Assessment/Plan mssapneumonia with acute respiratory failure- still on o2 at 8l/minute needing in hospital stay osteomyelits left foot//wound cultures pending but blood cultures positive for staph hominis and saprophyticus per id and to continue vanc untill dc but adjust for gfr dm dka resolved no wt bearing left foot normal stalin pulmonary nodules- advised will need repeat ct in 3 months if egd is normal esophageal thickening- add ppi/consult gi for egd Plan discussed with: Patient, Other My Orders Orders - MARYANN RUIZ MD Procedure Category Date Status Time Glucose Blood PHA 12/19/24 In Process (Accu-Chek Comfort 00:00 Insulin R (Human) PHA 12/19/24 In Process (Insulin R) 00:00 Dextrose 50% Syringe PHA 12/18/24 In Process 19:15 Vancomycin Per PHA 12/19/24 In Process Pharmacy 11:45 * [facility] [employer] CONS 12/18/24 Transmitted 20:48 Complete Blood Count LAB 12/20/24 Verified 04:00 Creatinine LAB 12/20/24 Verified 04:00 Vancomycin,Random LAB 12/20/24 Verified 04:00 Date of Service: Dec 19, 2024 Billing Provider: MARYANN RUIZ MD Common Visit Codes: [id number] INP/OBS CARE(MOD) MARYANN RUIZ MD Dec 19, 2024 17:48
[2024-12-20] VITALS (18 sets, daily range): BP systolic 94–110; BP diastolic 64–74; PULSE 73–93; RESP 14–18; TEMP 36.5; O2SAT 90–100
[2024-12-20 08:14] LABS: Mean Corpuscular Volume 82.3 fL (80.0-100.0); Nucleated Red Blood Cells % 0.0 %
[2024-12-20 08:16] LABS: Hematocrit 25.1 % (41.0-53.0); Hemoglobin 9.1 g/dL (13.5-17.5); Mean Corpuscular Hemoglobin 29.9 pg (28.0-32.0)
[2024-12-20] MEDS ORDERED: ACETYLCYSTEINE 10 %(100MG/ML) SOL 4ML NEB SCH (10:00)
[2024-12-20] MEDS: IPRATROPIUM BROM 0.5 MG/2.5ML INH SOL NEB SCH (10:06)
[2024-12-20] MEDS: ACETYLCYSTEINE 10 %(100MG/ML) SOL 4ML NEB SCH (10:07)
[2024-12-20] MEDS: ALBUTEROL SULF 2.5 MG/0.5ML(0.5%) NEB SOLN NEB SCH (10:07)
[2024-12-20] MEDS: VANCOMYCIN 500mg/100mL 100 ML IV ONE (11:13)
[2024-12-20 13:01] LABS: Base Excess 10.2 mmol/L (-2.0-3.0)
[2024-12-20] MEDS ORDERED: BLOO1KIT60 XX (13:12)
[2024-12-20] MEDS ORDERED: INSU100I70 SC (13:12)
[2024-12-20] MEDS ORDERED: LANC-347 XX (13:12)
--- NOTE | 2024-12-20 13:20 | DVHDS2 ---
Discharge Summary Date of Admission Dec 06, 2024 at 19:40 Date of Discharge: Dec 20, 2024 Admitting Diagnosis Diabetic ketoacidosis Labs/Diagnostic Data: Laboratory Results Test 12/20/24 12:49 12/20/24 12:22 12/20/24 06:38 12/19/24 05:18 Blood Gas Specimen Type Arterial Blood Gas Sample Site Left radial Blood Gas Patient Temperature 37.0 Arterial Blood Date Drawn [id number] Arterial Blood pH 7.542 (7.350-7.450) Arterial Blood Partial Pressure CO2 40.0 mmHg (35.0-48.0) Arterial Blood Partial Pressure O2 53.1 mmHg (83.0-108.0) Arterial Blood HCO3 33.6 mmol/L (21.0-28.0) Arterial Blood Oxygen Saturation 88.8 % (94.0-98.0) Arterial Blood Base Excess 10.2 mmol/L (-2.0-3.0) Arterial Blood Oxyhemoglobin 88.2 % (94.0-98.0) Arterial Blood Carboxyhemoglobin 0.4 % (0.5-1.5) Arterial Blood Methemoglobin 0.3 % (0.0-1.5) Frankie Test Yes Blood Gas Total Hemoglobin 9.60 g/dL (13.5-17.5) Blood Gas Modality Room air FiO2 % 21.0 Blood Gas Critical Value Read Back Yes Blood Gas Notified Whom Natalio campa mp Blood Gas Notified Time [id number] Blood Gas Notified By Mora spears director of analytics POC Glucose 124 mg/dl (70-106) White Blood Count 8.1 10^3/uL (4.4-10.8) Red Blood Count 3.05 10^6/uL (4.5-5.90) Hemoglobin 9.1 g/dL (13.5-17.5) Hematocrit 25.1 % (41.0-53.0) Mean Corpuscular Volume 82.3 fL (80.0-100.0) Mean Corpuscular Hemoglobin 29.9 pg (28.0-32.0) Mean Corpuscular Hemoglobin Concent 36.3 g/dL (32.0-36.0) Red Cell Distribution Width 12.2 % (11.8-14.3) Platelet Count 485 10^3/uL (140-450) Mean Platelet Volume 7.0 fL (6.9-10.8) Neutrophils (%) (Auto) 71.6 % (37.0-80.0) Lymphocytes (%) (Auto) 16.3 % (10.0-50.0) Monocytes (%) (Auto) 9.2 % (0.0-12.0) Eosinophils (%) (Auto) 2.2 % (0.0-7.0) Basophils (%) (Auto) 0.7 % (0.0-2.0) Neutrophils # (Auto) 5.8 10 ^3/uL (1.6-8.6) Lymphocytes # (Auto) 1.3 10 ^3/uL (0.4-5.4) Monocytes # (Auto) 0.7 10 ^3/uL (0-1.3) Eosinophils # (Auto) 0.2 10 ^3/uL (0-0.8) Basophils # (Auto) 0.1 10 ^3/uL (0-0.2) Nucleated Red Blood Cells 0.0 % Creatinine 1.60 mg/dL (0.700-1.30) Glomerular Filtration Rate Calc 52 mL/min (>90) Random Vancomycin Level 11.7 ug/mL (5-10) Sodium Level 139 mmol/L (136-145) Potassium Level 3.6 mmol/L (3.5-5.1) Chloride Level 95 mmol/L (98-107) Carbon Dioxide Level 37 mmol/L (20-31) Anion Gap 7 (5-15) Blood Urea Nitrogen 14 mg/dL (9-23) BUN/Creatinine Ratio 8.2 (10.0-20.0) Serum Glucose 119 mg/dL (74-106) Calcium Level 8.1 mg/dL (8.7-10.4) Test 12/16/24 21:45 12/16/24 16:36 12/13/24 06:13 12/12/24 05:36 Vancomycin Level Trough 33.3 ug/mL (5-10) Prothrombin Time 11.4 sec (9.3-11.8) Prothrombin Time INR 1.08 (0.9-1.15) Activated Partial Thromboplast Time 28.6 SEC (24.5-34.5) Phosphorus Level 3.1 mg/dL (2.4-5.1) Magnesium Level 1.9 mg/dL (1.6-2.6) Total Bilirubin 0.6 mg/dL (0.2-1.0) Aspartate Amino Transferase (AST) 22 U/L (13-40) Alanine Aminotransferase (ALT) 11 U/L (7-40) Alkaline Phosphatase 92 U/L (46-116) Total Protein 5.1 g/dL (5.7-8.2) Albumin 2.7 g/dL (3.2-4.8) Test 12/11/24 11:00 12/09/24 13:19 12/09/24 05:06 12/06/24 17:45 SARS-CoV-2 Antigen (Rapid) Negative (NEGATIVE) Triglycerides Level 91 mg/dL (< 150) Cholesterol Level 81 mg/dL (< 200) LDL Cholesterol 36 mg/dL (< 100) HDL Cholesterol 31 mg/dL (40-59) Thyroid Stimulating Hormone (TSH) 0.87 uIU/mL (0.55-4.78) Hemoglobin A1c 11.4 % A1C (<5.7) Lactic Acid Level 1.8 mmol/L (0.4-2.0) Test 12/06/24 15:54 12/06/24 15:28 Urine Color Light-yellow (Yellow) Urine Clarity Turbid (Clear) Urine pH 5.5 (5.0-9.0) Urine Specific [place] 1.019 (1.001-1.035) Urine Protein Trace (Negative) Urine Ketones 3+ (Negative) Urine Blood Trace /uL (Negative) Urine Nitrite Negative (Negative) Urine Bilirubin Negative (Negative) Urine Urobilinogen Normal mg/dL (Negative) Urine Leukocyte Esterase Negative /uL (Negative) Urine RBC <1 /hpf (0 - 3) Urine Microscopic WBC 1 /HPF (0-3) Urine Squamous Epithelial Cells Few /hpf (<5) Urine Bacteria None seen /hpf (None Seen) Urine Hyaline Casts Many /lpf (0 - 2) Urine Mucus Few (None Seen) Urine Glucose 4+ mg/dL (Normal) Urine Opiates Screen Neg (NEGATIVE) Urine Fentanyl Screen Neg (NEGATIVE) Urine Barbiturates Screen Neg (NEGATIVE) Urine Phencyclidine Screen Neg (NEGATIVE) Urine Amphetamines Screen Neg (NEGATIVE) Urine Benzodiazepines Screen Neg (NEGATIVE) Urine Cocaine Screen Neg (NEGATIVE) Urine Cannabinoids Screen Neg (NEGATIVE) Differential Total Cells Counted 100.0 (100) Neutrophils % (Manual) 84 (37.0-80.0) Band Neutrophils % (Manual) 6 Lymphocytes % (Manual) 2 (10.0-50.0) Monocytes % (Manual) 8 (0-12) Eosinophils % (Manual) 0 (0-7) Basophils % (Manual) 0 (0.0-2.0) Metamyelocytes % (manual) 0 Myelocytes % (Manual) 0 Promyelocytes % (Manual) 0 Blast Cells % (Manual) 0 Reactive Lymphocytes 0 Platelet Estimate Adequate Red Blood Cell Morphology Normal Serum Osmolality 456 mOsm/kg (278-298) Beta-Hydroxybutyric Acid > 4.500 mmol/L (< 0.4) Plasma/Serum Blood Alcohol 7.2 mg/dL (<10) Other Laboratory Tests 12/20/24 06:38 12/19/24 05:18 Brief Hx & Hospital Course: History of Present Illness 49-year-old male presents for evaluation of altered mental status. Patient was found altered by family members. In the feel patient's blood sugar was reading high in the patient was hypotensive. Currently patient is lethargic oriented x2. No slurred speech or unilateral weakness. No complaints of cardiac or respiratory symptoms. Course of hospitalization: Patient's blood sugars were controlled using insulin drip which was transitioned to long-acting insulin and regular insulin sliding scale. Patient was also noted to have multifocal pneumonia and acute hypoxic respiratory failure. Infectious Disease consultation was placed. Patient was found to have Staphylococcus aureus in sputum as well as being positive blood cultures with Staph haemolyticus and Staph hominis. Patient's repeat blood cultures negative. Patient was noted to have worsening left foot osteomyelitis. Patient was seen by Podiatry, undergoing I and D. patient continues to require O2 supplementation with PO2 found to be 53 on room air. Patient clinically has been stable. Blood sugars are now controlled. Given this is a new diagnosis of diabetes mellitus, patient has had diabetic education by the nursing staff. He will be discharged home with a PICC line and continued antibiotic therapy with ceftriaxone, to be followed by the infectious disease doctor as an outpatient. Patient will also be provided a blood glucose monitoring machine, lancets, as well as being placed on Lantus 15 units q.h.s.. He is instructed to follow up with the discharge Clinic in one week, establishing PCP, and follow up with Podiatry in 1-2 weeks. Patient was agreeable with discharge plan. All questions answered. Physical examination General: Alert and Oriented x3. No acute distress. Well-nourished. Eyes: EOMI. Anicteric. HENT: Moist mucous membranes. Lungs: Clear to auscultation bilaterally. No accessory muscle use. Cardiovascular: Regular rate and rhythm. No murmur. No JVD. Abdomen: Soft, non-tender and non-distended. No palpable masses. Extremities: No edema. Non-tender. Skin: No rashes or lesions. Warm. Neurologic: No focal neurological deficits. CN II-XII grossly intact, but not individually tested. Psychiatric: Cooperative. Appropriate mood and affect. Total time spent with patient discussing and formulating plan of care: 35 minutes. This medical document was created using an electronic medical record system with [employer] system. Although this document has been carefully reviewed, there may still be some phonetic and typographical errors. These areas are purely typographical due to imperfections of the software programs, and do not reflect any compromise in the patient's medical care. Condition at Discharge: Fair Final Diagnosis/Problems List DKA, right foot osteomyelitis with sepsis -diabetic ketoacidosis -acute kidney injury, vasomotor nephropathy -sepsis -Osteomyelitis to right great toe -hypokalemia Discharge Disposition: Home with Health Services Discharge Instruct/Medications Diet: Consistent carbohydrate Activity: No Restrictions, As Tolerated Follow Up/Referral: Follow up with PCP in 1-2 weeks Follow up with Dr. Farias in 1-2 weeks Medications: Continue home antidiabetic medications IV antibiotics per Infectious Disease doctor Sarah 5/325 q.8 hours as needed for [id number] pain Scheduled Insulin Glargine-Yfgn (Insulin Glargine), 100 UNIT SC HS Durable Medical Equipment Blood Glucose Monitoring Suppl (D-Care Glucometer Kit/Glu W/Device), KIT XX BID, (DME) Lancets (Freestyle Lancets), BOX XX BID, (DME) 36 Discharge Statement: "Patient was advised to return to the ER or call 911 if any headaches, dizziness, shortness of breath, chest pain, abdominal pain, bleeding, fevers, or worsening of medical condition. Patient was counseled about treatment plan, medications, possible side effects, patientverbalized understanding. All questions were answered to the best of my ability. This discharge took greater then 30 minutes in planning, reviewing documentation, counseling the patient, and discussing with other team members." ASSESSMENT ASSESSMENT Assessment DKA, right foot osteomyelitis with sepsis Date of Service: Dec 20, 2024 Billing Provider: LEOLA CAMPA NP Common Visit Codes: [id number] DISCH DAY >30min LEOLA CAMPA NP Dec 20, 2024 13:20
--- NOTE | 2024-12-20 20:38 | DVHPN2 ---
Progress Note - Dictate Date Seen: Dec 20, 2024 Medical Necessity Reason Pt with a Central, PICC or Fol: No Subjective Patient is clinically stable. seen by Podiatry; S/P I&D on 12/16 vital signs Vital Sign Date Time Temp Pulse Resp B/P (MAP) Pulse Ox O2 Delivery O2 Flow Rate FiO2 12/20/24 19:36 88 14 100 12/20/24 19:26 Room Air 0.0 12/20/24 19:26 21 12/20/24 17:00 97.5 104/65 (78) 97.5 Total Intake and Output 12/19/24 12/19/24 12/20/24 15:00 23:00 07:00 Intake Total 900 ml 200 ml Balance 900 ml 200 ml medications Current Medications Medications Dose Ordered Sig/[place] Route Start Time Stop Time Status Last Admin Dose Admin Insulin Glargine 15 units DAILY SC 12/07/24 10:00 12/20/24 08:43 15 UNITS Albuterol 2.5 mg Q6HPRN PRN NEB 12/06/24 19:45 Cancel Acetaminophen 650 mg Q6HP PRN PO 12/06/24 19:45 12/11/24 14:40 650 MG Pantoprazole Sodium 40 mg DAILY IV 12/07/24 04:45 12/20/24 08:39 40 MG Acetaminophen 650 mg Q6HP PRN [place] 12/08/24 14:45 12/10/24 04:26 650 MG Phenol/Menthol 1 spr Q2HP PRN [place] 12/09/24 14:30 12/09/24 17:02 1 SPR Ceftriaxone Sodium/Dextrose 50 ml @ 50 mls/hr DAILY IV 12/18/24 10:00 12/20/24 08:39 50 MLS/HR Enoxaparin Sodium 40 mg DAILY SC 12/18/24 10:00 12/20/24 09:01 40 MG Sodium Chloride 10 ml QSHIFT@ IV 12/17/24 22:00 12/19/24 22:10 10 ML Diagnostic Test (Pha) 1 strip Q6HR 12/19/24 00:00 12/20/24 05:29 1 STRIP Insulin Human Regular Q6HR SC 12/19/24 00:00 12/20/24 17:57 2 UNITS Dextrose 50 ml UD PRN IV 12/18/24 19:15 Vancomycin HCl 0 ml @ 0 mls/hr UD IV 12/19/24 11:45 Albuterol 2.5 mg Q4HWA [place] 12/20/24 10:00 12/20/24 19:25 2.5 MG Ipratropium [place] 0.5 mg Q4HWA [place] 12/20/24 10:00 12/20/24 19:25 0.5 MG Acetylcysteine 100 mg Q4HWA [place] 12/20/24 10:00 12/20/24 22:01 12/20/24 19:26 100 MG objective Gen: 49-year-old male Skin: Warm, dry, normal color and texture, no rash. HEENT: Normocephalic atraumatic, mucous membranes moist and pink. Neck: supple Pulmonary: Clear to auscultation bilaterally. Cardiac: no murmur Abdomen: Soft, nontender, nondistended, bowel sounds present all 4 quadrants, no guarding, no rigidity, no organomegaly. Extremities: No cyanosis, clubbing, no edema Neuro: grossly intact foot s/p I and D of great toe of left foot laboratory and microbiology Laboratory Tests 12/20/24 06:38 12/19/24 05:18 Test 12/19/24 05:18 Range/Units Serum Glucose 119 H 74-106 mg/dL Problem List Assessment/Plan Assessment/Plan acute osteomyelitis of left foot toe group B streptococcal infection Sepsis resolved Bacteremia due to staphylococcus hemolyticus MSSA Pneumonia ( staphylococcus aureus) Diabetic ketoacidosis Metabolic encephalopathy Pneumonia leukocytosis KYLER resolving Hypokalemia esophageal thickening - defer treatment to GI Plan S/P I and D on 12/16 OR cultures results show group b streptococcal infection He has Picc line SW consult placed to arrange IV Ceftriaxone 2g daily for 6 weeks with stop date 01/27 for acute osteomyelitis for left foot Weekly labs cbc with diff, cmp, esr. fax to [phone] HE need outpatient ID referral within his network and also podiatry follow up in 1-2 weeks continue wound care cont ceftriaxone for now continue IV Vancomycin,until discharge and then stop. This will complete course for pneumonia and staph hemolyticus since 12/07 and even before. reviewed sputum cultures: MSSA repeat blood cx negative follow blood culture, prelim shows Staphylococcus hemolyticus probably from skin Negative for MRSA in recent blood cultures patient had MINDI, No evidence of Infective endocarditis He is clinically stable however his prognosis of foot depends. recommend good control of diabetes and off pressure bearing. Total time spent 50minutes during the encounter Discussed with treatment team Dietary Evaluation Review Comments: Nutrition Recommendation 1) Advance to CCHO 60gm diet as medically feasible 2) TPN if NPO > 7 days 3) If feeding tube is placed, consider TF Glucerna 1.2Cal @ 65ml/hr x 24hr (goal). Water flush 160ml Q4H TF at goal volume provides 1872 kcal (100% estimated energy needs), 94 gm protein (100% estimated protein needs), and 1896 ml free water (including flush) 4) Monitor NPO status, lab values, weight trend, and I/O Expected Outcomes/Goals: To meet >75% estimated needs Lab values to improve Fu 2-3 days Plan discussed with: Other Is the fluid challenge complet: Yes Date of Reassessment: Dec 06, 2024 Time of Reassessment: 1645 Blood Culture Time: 1528 Time Antibiotics Given: 1548 Systolic BP: 80 Diastolic BP: 42 Blood Pressure Mean: 55 Respiration: 21 Respiratory Effort: Non-Labored, Labored Respiratory Pattern: Regular Oxygen Saturation: 97 Pulse Rate: 88 Pulse Location: Radial Pulse Strength: Normal Pulse Assessment Method: Palpation Pulse Rhythm: Regular Capillary Refill: < 3 seconds Heart Sounds: S1 & S2 Breath sounds: Clear Skin Moisture: Moist Skin Tugor: WNL Skin Color: WNL FELECIA BROWN MD Dec 20, 2024 20:38
--- NOTE | 2024-12-20 21:49 | DVHPN2 ---
Progress Note - Dictate Date Seen: Dec 20, 2024 Medical Necessity Reason Pt with a Central, PICC or Fol: No Subjective Patient is feeling much better tolerating feeds No vomiting no hematemesis vital signs Vital Sign Date Time Temp Pulse Resp B/P (MAP) Pulse Ox O2 Delivery O2 Flow Rate FiO2 12/20/24 19:36 88 14 100 12/20/24 19:26 Room Air 0.0 12/20/24 19:26 21 12/20/24 17:00 97.5 104/65 (78) 97.5 Total Intake and Output 12/19/24 12/19/24 12/20/24 15:00 23:00 07:00 Intake Total 900 ml 200 ml Balance 900 ml 200 ml medications Current Medications Medications Dose Ordered Sig/[place] Route Start Time Stop Time Status Last Admin Dose Admin Insulin Glargine 15 units DAILY SC 12/07/24 10:00 12/20/24 08:43 15 UNITS Albuterol 2.5 mg Q6HPRN PRN NEB 12/06/24 19:45 Cancel Acetaminophen 650 mg Q6HP PRN PO 12/06/24 19:45 12/11/24 14:40 650 MG Pantoprazole Sodium 40 mg DAILY IV 12/07/24 04:45 12/20/24 08:39 40 MG Acetaminophen [address] 12/08/24 14:45 12/10/24 04:26 650 MG Phenol/Menthol 1 spr Q2HP PRN [place] 12/09/24 14:30 12/09/24 17:02 1 SPR Ceftriaxone Sodium/Dextrose 50 ml @ 50 mls/hr DAILY IV 12/18/24 10:00 12/20/24 08:39 50 MLS/HR Enoxaparin Sodium 40 mg DAILY SC 12/18/24 10:00 12/20/24 09:01 40 MG Sodium Chloride 10 ml QSHIFT@ IV 12/17/24 22:00 12/19/24 22:10 10 ML Diagnostic Test (Pha) 1 strip Q6HR 12/19/24 00:00 12/20/24 05:29 1 STRIP Insulin Human Regular Q6HR [place] 12/19/24 00:00 12/20/24 17:57 2 UNITS Dextrose 50 ml UD PRN IV 12/18/24 19:15 Vancomycin HCl 0 ml @ 0 mls/hr UD IV 12/19/24 11:45 Albuterol 2.5 mg Q4HWA [facility] 12/20/24 10:00 12/20/24 19:25 2.5 MG Ipratropium [place] 0.5 mg Q4HWA [facility] 12/20/24 10:00 12/20/24 19:25 0.5 MG Acetylcysteine 100 mg Q4HWA [facility] 12/20/24 10:00 12/20/24 22:01 12/20/24 19:26 100 MG objective Abdomen is soft nontender no masses laboratory and microbiology Laboratory Tests 12/20/24 06:38 12/19/24 05:18 Test 12/19/24 05:18 Range/Units Serum Glucose 119 H 74-106 mg/dL Assessment/Plan 49-year-old with a history of diabetes diabetic ketosis and metabolic encephalopathy with the abdominal pain hypoxia history of osteomyelitis treated with surgery and antibiotics patient has got had a CT angiogram done because of the hypoxia which showed there was a thickening of the esophagus as well as some thickening of the gastric walk this was done where which was only a CT angiogram not a CT of the esophagus stomach. CT was done without contrast Impression esophagitis possibly and gastric wall thickening and abnormal CAT with the abnormal CT angiogram diabetes possible diabetic gastric bezoar or dialysis gastritis or other malignancy or other pathology can not be excluded including candidiasis or other infections also Recommend CT scan with oral contrast of the esophagus from the stomach followed abnormality seen in the CT angiogram better Thank you Dr. Montgomery Dietary Evaluation Review Comments: Nutrition Recommendation 1) Advance to [facility] 60gm diet as medically feasible 2) TPN if NPO > 7 days 3) If feeding tube is placed, consider TF Glucerna 1.2Cal @ 65ml/hr x 24hr (goal). Water flush 160ml Q4H TF at goal volume provides 1872 kcal (100% estimated energy needs), 94 gm protein (100% estimated protein needs), and 1896 ml free water (including flush) 4) Monitor NPO status, lab values, weight trend, and I/O Expected Outcomes/Goals: To meet >75% estimated needs Lab values to improve Fu 2-3 days Plan discussed with: Patient Is the fluid challenge complet: Yes Date of Reassessment: Dec 06, 2024 Time of Reassessment: 1645 Blood Culture Time: 1528 Time Antibiotics Given: 1548 Systolic BP: 80 Diastolic BP: 42 Blood Pressure Mean: 55 Respiration: 21 Respiratory Effort: Non-Labored, Labored Respiratory Pattern: Regular Oxygen Saturation: 97 Pulse Rate: 88 Pulse Location: Radial Pulse Strength: Normal Pulse Assessment Method: Palpation Pulse Rhythm: Regular Capillary Refill: < 3 seconds Heart Sounds: S1 & S2 Breath sounds: Clear Skin Moisture: Moist Skin Tugor: WNL Skin Color: WNL MINA MONTGOMERY MD Dec 20, 2024 21:49
[2024-12-21] VITALS (9 sets, daily range): BP systolic 102–108; BP diastolic 65–69; PULSE 88–102; RESP 16–19; TEMP 93–98.4; O2SAT 90–100
[2024-12-21] MEDS: VANCOMYCIN 500mg/100mL 100 ML IV ONE (11:00)
--- NOTE | 2024-12-21 11:58 | DVHPN2 ---
Subjective Patient denies any symptoms at this time. Reviewed: Care Plan, H&P, Labs, Medications Changes from previous H/P or p: No Changes General: Per HPI Objective Vitals Vital Signs Date Time Temp Pulse Resp B/P (MAP) Pulse Ox O2 Delivery O2 Flow Rate FiO2 12/21/24 10:31 90 18 100 12/21/24 10:27 Nasal Cannula* 2 28 12/21/24 09:00 98.2 105/69 (81) 98.2 Intake/Output Intake and Output 12/21/24 07:00 Intake Total 1600 ml Balance 1600 ml Intake Oral 1000 ml IV Total 150 ml Other 450 ml # Voids 3 # Bowel Movements 2 General Appearance: Alert, Oriented X3, Cooperative, No acute distress HEENT: Atraumatic, PERRLA Lungs: Clear to auscultation, Normal air movement Cardiovascular: Normal S1, Normal S2 Musculoskeletal: Normal sensory function, Normal motor function Extremities: No edema, Other (dressing in place on left foot/no drainage) Neuro: Normal speech, Strength at 5/5 X4 ext, Normal tone, Sensation intact, C ranial nerves 3-12 NL Skin: Dry, Intact Psych/Mental Status: Mental status NL, Mood NL Medications Current Medications Medications Dose Ordered Sig/[place] Route Start Time Stop Time Status Last Admin Dose Admin Insulin Glargine 15 units DAILY SC 12/07/24 10:00 12/21/24 10:44 15 UNITS Albuterol 2.5 mg Q6HPRN PRN NEB 12/06/24 19:45 Cancel Acetaminophen 650 mg Q6HP PRN PO 12/06/24 19:45 12/11/24 14:40 650 MG Pantoprazole Sodium 40 mg DAILY IV 12/07/24 04:45 12/21/24 10:09 40 MG Acetaminophen 650 mg Q6HP PRN [place] 12/08/24 14:45 12/10/24 04:26 650 MG Phenol/Menthol 1 spr Q2HP PRN [place] 12/09/24 14:30 12/09/24 17:02 1 SPR Ceftriaxone Sodium/Dextrose 50 ml @ 50 mls/hr DAILY IV 12/18/24 10:00 12/21/24 10:11 50 MLS/HR Enoxaparin Sodium 40 mg DAILY SC 12/18/24 10:00 12/21/24 10:15 40 MG Sodium Chloride 10 ml QSHIFT@10,22 IV 12/17/24 22:00 12/21/24 10:00 10 ML Diagnostic Test (Pha) 1 strip Q6HR 12/19/24 00:00 12/21/24 00:22 1 STRIP Insulin Human Regular Q6HR [place] 12/19/24 00:00 12/20/24 17:57 2 UNITS Dextrose 50 ml UD PRN IV 12/18/24 19:15 Vancomycin HCl 0 ml @ 0 mls/hr UD IV 12/19/24 11:45 Albuterol 2.5 mg Q4HWA NEB 12/20/24 10:00 12/21/24 10:26 2.5 MG Ipratropium [place] 0.5 mg Q4HWA NEB 12/20/24 10:00 12/21/24 10:26 0.5 MG Laboratory Results Laboratory Tests 12/19/24 05:18 12/20/24 06:38 12/21/24 05:05 Urinalysis Test 12/06/24 15:54 Urine Color Light-yellow (Yellow) Urine Clarity Turbid (Clear) H Urine pH 5.5 (5.0-9.0) Urine Specific [place] 1.019 (1.001-1.035) Urine Protein Trace (Negative) H Urine Ketones 3+ (Negative) H Urine Blood Trace /uL (Negative) H Urine Nitrite Negative (Negative) Urine Bilirubin Negative (Negative) Urine Urobilinogen Normal mg/dL (Negative) Urine Leukocyte Esterase Negative /uL (Negative) Urine RBC <1 /hpf (0 - 3) Urine Microscopic WBC 1 /HPF (0-3) Urine Squamous Epithelial Cells Few /hpf (<5) Urine Bacteria None seen /hpf (None Seen) Urine Hyaline Casts Many /lpf (0 - 2) Urine Mucus Few (None Seen) Urine Glucose 4+ mg/dL (Normal) H Blood Gas Results Test 12/20/24 12:49 Arterial Blood pH 7.542 (7.350-7.450) FiO2 % 21.0 Microbiology Microbiology Date/Time Source Procedure Growth Status 12/16/24 12:34 Foot Left Anaerobic Culture - Final Complete 12/16/24 12:34 Foot Left Aerobic Culture - Final Complete 12/09/24 14:07 Sputum Gram Stain - Final Complete 12/09/24 14:07 Respiratory Culture - Final Staphylococcus aureus Complete 12/08/24 16:09 Blood Blood Culture - Final NO GROWTH AFTER 5 DAYS OF INCUBATION. Complete Labs and/or images reviewed: Labs reviewed by me, Image(s) reviewed by me Assessment/Plan Assessment/Plan Impression: -diabetic ketoacidosis -acute kidney injury, vasomotor nephropathy -sepsis -Osteomyelitis to right great toe -hypokalemia Plan: Events: Patient discharged yesterday. Awaiting for O2 to be established. IV antibiotics have been established. Diabetic medications and glucometer has been provided. -infectious disease consultation for outpatient IV antibiotic therapy management -continue IV vancomycin -pain management -regular insulin sliding scale -social service consultation for establishment of home health services for wound care and IV antibiotics Total time spent with patient discussing and formulating plan of care: 35 minutes. This medical document was created using an electronic medical record system with [employer] dictation system. Although this document has been carefully reviewed, there may still be some phonetic and typographical errors. These areas are purely typographical due to imperfections of the software programs, and do not reflect any compromise in the patient's medical care. Plan discussed with: Patient, Other (RN) My Orders Orders - LEOLA CAMPA NP Procedure Category Date Status Time Abg W/ Co-Ox RT 12/20/24 Logged 12:00 Discharge DISCHARGE 12/20/24 Transmitted 13:11 Date of Service: Dec 21, 2024 Billing Provider: LEOLA CAMPA NP Common Visit Codes: [id number] INP/OBS CARE(HIGH) LEOLA CAMPA NP Dec 21, 2024 11:58
--- NOTE | 2024-12-21 12:08 | DVHPN2 ---
Progress Note - Dictate Date Seen: Dec 21, 2024 Medical Necessity Reason Pt with a Central, PICC or Fol: No Subjective Patient is clinically stable. seen by Podiatry; S/P I&D on 12/16 vital signs Vital Sign Date Time Temp Pulse Resp B/P (MAP) Pulse Ox O2 Delivery O2 Flow Rate FiO2 12/21/24 10:31 90 18 100 12/21/24 10:27 Nasal Cannula* 2 28 12/21/24 09:00 98.2 105/69 (81) 98.2 Total Intake and Output 12/20/24 12/20/24 12/21/24 15:00 23:00 07:00 Intake Total 150 ml 1050 ml 400 ml Balance 150 ml 1050 ml 400 ml medications Current Medications Medications Dose Ordered Sig/[place] Route Start Time Stop Time Status Last Admin Dose Admin Insulin Glargine 15 units DAILY SC 12/07/24 10:00 12/21/24 10:44 15 UNITS Albuterol 2.5 mg Q6HPRN PRN NEB 12/06/24 19:45 Cancel Acetaminophen 650 mg Q6HP PRN PO 12/06/24 19:45 12/11/24 14:40 650 MG Pantoprazole Sodium 40 mg DAILY IV 12/07/24 04:45 12/21/24 10:09 40 MG Acetaminophen [address] 12/08/24 14:45 12/10/24 04:26 650 MG Phenol/Menthol 1 spr Q2HP PRN [place] 12/09/24 14:30 12/09/24 17:02 1 SPR Ceftriaxone Sodium/Dextrose 50 ml @ 50 mls/hr DAILY IV 12/18/24 10:00 12/21/24 10:11 50 MLS/HR Enoxaparin Sodium 40 mg DAILY SC 12/18/24 10:00 12/21/24 10:15 40 MG Sodium Chloride 10 ml QSHIFT@ IV 12/17/24 22:00 12/21/24 10:00 10 ML Diagnostic Test (Pha) 1 strip Q6HR 12/19/24 00:00 12/21/24 00:22 1 STRIP Insulin Human Regular Q6HR [place] 12/19/24 00:00 12/20/24 17:57 2 UNITS Dextrose 50 ml UD PRN IV 12/18/24 19:15 Vancomycin HCl 0 ml @ 0 mls/hr UD IV 12/19/24 11:45 Albuterol 2.5 mg Q4HWA [place] 12/20/24 10:00 12/21/24 10:26 2.5 MG Ipratropium [place] 0.5 mg Q4HWA NEB 12/20/24 10:00 12/21/24 10:26 0.5 MG objective Gen: 49-year-old male Skin: Warm, dry, normal color and texture, no rash. HEENT: Normocephalic atraumatic, mucous membranes moist and pink. Neck: supple Pulmonary: Clear to auscultation bilaterally. Cardiac: no murmur Abdomen: Soft, nontender, nondistended, bowel sounds present all 4 quadrants, no guarding, no rigidity, no organomegaly. Extremities: No cyanosis, clubbing, no edema Neuro: grossly intact foot s/p I and D of great toe of left foot laboratory and microbiology Laboratory Tests 12/21/24 05:05 12/20/24 06:38 12/19/24 05:18 Test 12/19/24 05:18 Range/Units Serum Glucose 119 H 74-106 mg/dL Problem List Assessment/Plan Assessment/Plan acute osteomyelitis of left foot toe group B streptococcal infection Sepsis resolved Bacteremia due to staphylococcus hemolyticus MSSA Pneumonia ( staphylococcus aureus) Diabetic ketoacidosis Metabolic encephalopathy Pneumonia leukocytosis KYLER resolving Hypokalemia esophageal thickening - defer treatment to GI Plan S/P I and D on 12/16 OR cultures results show group b streptococcal infection He has Picc line SW consult placed to arrange IV Ceftriaxone 2g daily for 6 weeks with stop date 01/27 for acute osteomyelitis for left foot Weekly labs cbc with diff, cmp, esr. fax to [phone] HE need outpatient ID referral within his network and also podiatry follow up in 1-2 weeks continue wound care cont ceftriaxone for now continue IV Vancomycin,until discharge and then stop. This will complete course for pneumonia and staph hemolyticus since 12/07 and even before. reviewed sputum cultures: MSSA repeat blood cx negative follow blood culture, prelim shows Staphylococcus hemolyticus probably from skin Negative for MRSA in recent blood cultures patient had MINDI, No evidence of Infective endocarditis He is clinically stable however his prognosis of foot depends. recommend good control of diabetes and off pressure bearing. Total time spent 50minutes during the encounter Discussed with treatment team Dietary Evaluation Review Comments: Nutrition Recommendation 1) Advance to CCHO 60gm diet as medically feasible 2) TPN if NPO > 7 days 3) If feeding tube is placed, consider TF Glucerna 1.2Cal @ 65ml/hr x 24hr (goal). Water flush 160ml Q4H TF at goal volume provides 1872 kcal (100% estimated energy needs), 94 gm protein (100% estimated protein needs), and 1896 ml free water (including flush) 4) Monitor NPO status, lab values, weight trend, and I/O Expected Outcomes/Goals: To meet >75% estimated needs Lab values to improve Fu 2-3 days Is the fluid challenge complet: Yes Date of Reassessment: Dec 06, 2024 Time of Reassessment: 1644 Blood Culture Time: 1528 Time Antibiotics Given: 1548 Systolic BP: 80 Diastolic BP: 42 Blood Pressure Mean: 55 Respiration: 21 Respiratory Effort: Non-Labored, Labored Respiratory Pattern: Regular Oxygen Saturation: 97 Pulse Rate: 88 Pulse Location: Radial Pulse Strength: Normal Pulse Assessment Method: Palpation Pulse Rhythm: Regular Capillary Refill: < 3 seconds Heart Sounds: S1 & S2 Breath sounds: Clear Skin Moisture: Moist Skin Tugor: WNL Skin Color: WNL FELECIA BROWN MD Dec 21, 2024 12:08
--- NOTE | 2024-12-21 16:59 | DVHPN2 ---
Progress Note - Dictate Date Seen: Dec 21, 2024 Medical Necessity Reason Pt with a Central, PICC or Fol: No Subjective No new complaints, patient feels better Patient denies any symptoms of dysphagia heartburn GERD or abdominal pain at this time vital signs Vital Sign Date Time Temp Pulse Resp B/P (MAP) Pulse Ox O2 Delivery O2 Flow Rate FiO2 12/21/24 13:00 98.0 102 18 108/68 (81) 92 98.0 12/21/24 10:27 Nasal Cannula* 2 28 Total Intake and Output 12/20/24 12/20/24 12/21/24 15:00 23:00 07:00 Intake Total 150 ml 1050 ml 400 ml Balance 150 ml 1050 ml 400 ml medications Current Medications Medications Dose Ordered Sig/[place] Route Start Time Stop Time Status Last Admin Dose Admin Insulin Glargine 15 units DAILY SC 12/07/24 10:00 12/21/24 10:44 15 UNITS Albuterol 2.5 mg Q6HPRN PRN NEB 12/06/24 19:45 Cancel Acetaminophen 650 mg Q6HP PRN PO 12/06/24 19:45 12/11/24 14:40 650 MG Pantoprazole Sodium 40 mg DAILY IV 12/07/24 04:45 12/21/24 10:09 40 MG Acetaminophen [address] 12/08/24 14:45 12/10/24 04:26 650 MG Phenol/Menthol 1 spr Q2HP PRN [place] 12/09/24 14:30 12/09/24 17:02 1 SPR Ceftriaxone Sodium/Dextrose 50 ml @ 50 mls/hr DAILY IV 12/18/24 10:00 12/21/24 10:11 50 MLS/HR Enoxaparin Sodium 40 mg DAILY SC 12/18/24 10:00 12/21/24 10:15 40 MG Sodium Chloride 10 ml QSHIFT@,22 IV 12/17/24 22:00 12/21/24 10:00 10 ML Diagnostic Test (Pha) 1 strip Q6HR 12/19/24 00:00 12/21/24 12:10 1 STRIP Insulin Human Regular Q6HR [place] 12/19/24 00:00 12/21/24 12:36 9 UNITS Dextrose 50 ml UD PRN IV 12/18/24 19:15 Vancomycin HCl 0 ml @ 0 mls/hr UD IV 12/19/24 11:45 Albuterol 2.5 mg Q4HWA NEB 12/20/24 10:00 12/21/24 10:26 2.5 MG Ipratropium [place] 0.5 mg Q4HWA NEB 12/20/24 10:00 12/21/24 10:26 0.5 MG objective Awake alert in no acute distress Abdomen is soft nontender no masses laboratory and microbiology Laboratory Tests 12/21/24 05:05 12/20/24 06:38 12/19/24 05:18 Test 12/19/24 05:18 Range/Units Serum Glucose 119 H 74-106 mg/dL Problems(with codes): (1) Abnormal finding on GI tract imaging (2) DKA (diabetic ketoacidosis) (3) Pneumonia (4) Sepsis Prognosis Plan Discharge planning is in progress Patient was advised to discontinue any alcohol smoking NSAIDs He can follow up in my office as an outpatient if he has any recurrent upper GI symptoms to discuss elective endoscopy and screening colonoscopy My contact information was given Dietary Evaluation Review Comments: Nutrition Recommendation 1) Advance to CCHO 60gm diet as medically feasible 2) TPN if NPO > 7 days 3) If feeding tube is placed, consider TF Glucerna 1.2Cal @ 65ml/hr x 24hr (goal). Water flush 160ml Q4H TF at goal volume provides 1872 kcal (100% estimated energy needs), 94 gm protein (100% estimated protein needs), and 1896 ml free water (including flush) 4) Monitor NPO status, lab values, weight trend, and I/O Expected Outcomes/Goals: To meet >75% estimated needs Lab values to improve Fu 2-3 days Plan discussed with: Patient Is the fluid challenge complet: Yes Date of Reassessment: Dec 06, 2024 Time of Reassessment: 1644 Blood Culture Time: 1528 Time Antibiotics Given: 1548 Systolic BP: 80 Diastolic BP: 42 Blood Pressure Mean: 55 Respiration: 21 Respiratory Effort: Non-Labored, Labored Respiratory Pattern: Regular Oxygen Saturation: 97 Pulse Rate: 88 Pulse Location: Radial Pulse Strength: Normal Pulse Assessment Method: Palpation Pulse Rhythm: Regular Capillary Refill: < 3 seconds Heart Sounds: S1 & S2 Breath sounds: Clear Skin Moisture: Moist Skin Tugor: WNL Skin Color: WNL KINJAL HUGHES MD Dec 21, 2024 16:59
== END 2024-12-21 18:00 | disposition home health service (06) | DRG 710 ==
LOC: EDBD 15:08 → ER 15:08 → OVERFLOW 19:40 → DOU 23:05 → TELE-WESTW 12-12 17:48
PROVIDERS: ADMIT Nurse Practitioner Acute Care; ATTEND Nurse Practitioner Acute Care
PROC: 02H633Z Insertion of Infusion Device into Right Atrium, Percutaneous Approach (ICD-10-PCS; 2024-12-06)
PROC: B548ZZA Ultrasonography of Superior Vena Cava, Guidance (ICD-10-PCS; 2024-12-06)
PROC: B24BZZ4 Ultrasonography of Heart with Aorta, Transesophageal (ICD-10-PCS; 2024-12-10)
PROC: 0Q9R0ZZ Drainage of Left Toe Phalanx, Open Approach (ICD-10-PCS; principal; 2024-12-16 12:24)
PROC: 02HV33Z Insertion of Infusion Device into Superior Vena Cava, Percutaneous Approach (ICD-10-PCS; 2024-12-17)
PROC: B548ZZA Ultrasonography of Superior Vena Cava, Guidance (ICD-10-PCS; 2024-12-17)
DX: A41.2 Sepsis due to unspecified staphylococcus (principal); N17.0 Acute kidney failure with tubular necrosis; J96.01 Acute respiratory failure with hypoxia; J15.211 Pneumonia due to Methicillin susceptible Staphylococcus aureus; E11.10 Type 2 diabetes mellitus with ketoacidosis without coma; G93.41 Metabolic encephalopathy; E86.9 Volume depletion, unspecified; E87.0 Hyperosmolality and hypernatremia; E87.6 Hypokalemia; E83.39 Other disorders of phosphorus metabolism; L03.032 Cellulitis of left toe; K22.9 Disease of esophagus, unspecified; L02.612 Cutaneous abscess of left foot; E11.621 Type 2 diabetes mellitus with foot ulcer; Z20.822 Contact with and (suspected) exposure to COVID-19; E11.69 Type 2 diabetes mellitus with other specified complication; M86.172 Other acute osteomyelitis, left ankle and foot; B95.1 Streptococcus, group B, as the cause of diseases classified elsewhere; Z79.4 Long term (current) use of insulin
CPT/HCPCS: 36415; 36556; 36569; 36600; 70450; 71045; 71275; 73718; 76937; 80048; 80053; 80061; 80202; 80307; 80320; 81001; 82010; 82565; 82805; 82962; 83036; 83605; 83735; 83930; 84100; 84443; 85007; 85025; 85027; 85610; 85730; 87040; 87070; 87075; 87077; 87081; 87186; 87205; 87426; 93005; 93306; 93312; 94640; 97163; 99291; 99292; G0378; J1815; J2250; J2405; J2470; J2704; J3480; J3490; J7060